=== PATIENT | male | born 1960 | race Caucasian/White ===

== ENCOUNTER 2021-03-26 11:51 | Outpatient (REF) | payer BC, SELFPAY ==
[2021-03-26 12:39] LABS: Influenza A PCR NEGATIVE (Negative); Influenza B PCR NEGATIVE (Negative); Resp Syncy Virus RNA Qual PCR NEGATIVE (Negative); SARS COV2 PCR INHOUSE POSITIVE (Negative)
== END 2021-03-26 11:52 | disposition home or self-care (01) ==
LOC: HO.LNP 11:51
PROVIDERS: Visit Provider Internal Medicine
DX: R50.9 Fever, unspecified (principal); Z20.822 Contact with and (suspected) exposure to COVID-19
CPT/HCPCS: 0241U

== ENCOUNTER 2021-07-31 16:14 | Outpatient (REF) | payer BC, SELFPAY ==
--- NOTE | ~2021-07-31 | XR_ITS ---
EXAMINATION: XR PELVIS CLINICAL INFORMATION: Pain left SI joint. COMPARISON: CT pelvis 06/17/2011 TECHNIQUE: AP view of the pelvis. FINDINGS: There is no fracture or dislocation or destructive process. No diastases SI joints or pubis. There are degenerative changes bilateral SI joints with bridging osteophytes again noted superior SI joints. There is no definite erosive change. The hips are unremarkable. XR/XR pelvis 1-2V IMPRESSION: Degenerative changes bilateral SI joints.
== END 2021-07-31 16:15 | disposition home or self-care (01) ==
LOC: HO.XRAY 16:14
PROVIDERS: PCP Internal Medicine; Visit Provider Internal Medicine
DX: M53.3 Sacrococcygeal disorders, not elsewhere classified (principal)
CPT/HCPCS: 72170

== ENCOUNTER 2021-08-01 09:31 | Outpatient (REF) | payer BC, SELFPAY ==
[2021-08-01 09:48] LABS: MANUAL DIFF FLAG NO
[2021-08-01 10:53] LABS: Basophils Percent Auto 0.5 % (0-2); Eosinophils Absolute Auto 0.1 X10*3/uL (0.0-0.4); Eosinophils Percent Auto 1.3 % (0-4); Hematocrit 43.4 % (42.0-52.0); Hemoglobin 14.6 g/dl (14.0-18.0); Imm Gran Abs Auto 0.02 X10*3/uL (0.00-0.03); Imm Gran Pct Auto 0.2 % (0.0-0.4); Lymphocytes Absolute Auto 2.3 X10*3/uL (1.2-4.9); Lymphocytes Percent Auto 26.7 % (20-40); Mean Corpuscular HGB Conc 33.6 g/dl (31.0-36.0); Mean Corpuscular Hemoglobin 31.7 pg (27.0-33.0); Mean Corpuscular Volume 94.3 fL (80.0-98.0); Mean Platelet Volume 9.2 fL (9.4-12.4); Monocytes Absolute Auto 0.7 X10*3/uL (0.1-1.2); Monocytes Percent Auto 8.4 % (2-11); Neutrophils Absolute Auto 5.4 x10*3/uL (2.0-8.3); Neutrophils Percent Auto 62.9 % (45-73); Platelet Count 366 X10*3/uL (160-400); White Blood Count 8.6 X10*3/uL (4.8-10.8)
[2021-08-01 11:34] LABS: Alanine Aminotransferase 15 U/L (0-40); Albumin Level 4.2 g/dL (3.5-5.0); Alkaline Phosphatase 75 U/L (39-117); Anion Gap 14 (12-20); Aspartate Amino Transferase 17 U/L (5-37); Bilirubin Total 0.4 mg/dL (0.0-1.0); Blood Urea Nitrogen 16 mg/dL (9-16); Calcium 9.6 mg/dL (8.4-10.2); Carbon Dioxide 25 mmol/L (22-29); Chloride 104 mmol/L (96-108); Cholesterol 195 mg/dL; Estimated Glomerular Filt Rate > 60; Glucose Fasting 80 mg/dL (60-99); HDL Cholesterol 38 mg/dL; LDL Cholesterol Calculated 141 mg/dl; Potassium 4.8 mmol/L (3.3-5.1); Sodium 138 mmol/L (135-145); Total Protein 6.9 g/dL (6.5-8.0); Triglycerides 80 mg/dL
[2021-08-01 11:55] LABS: Prostate Specific Antigen 1.52 ng/mL (<0.05-4.0); Thyroid Stimulating Hormone 1.37 uIU/mL (0.32-4.0)
== END 2021-08-01 09:32 | disposition home or self-care (01) ==
LOC: HO.LAB 09:31
PROVIDERS: PCP Internal Medicine; Visit Provider Internal Medicine
DX: Z00.00 Encounter for general adult medical examination without abnormal findings (principal); Z12.5 Encounter for screening for malignant neoplasm of prostate
CPT/HCPCS: 36415; 80053; 80061; 84153; 84439; 84443; 85025

== ENCOUNTER → 2021-08-06 07:57 | Outpatient (REF) | payer BC, SELFPAY ==
--- NOTE | 2021-08-06 08:01 | CA_ITS ---
Acquisition Time: 2021-08-06 08:16:59 Total Exercise Time: 00:08:31 Test Indications: PALPITATIONS Medications: Protocol: SHERLY Max HR: 153 BPM 95% of Pred: 161 BPM Max BP: 214/072 mmHG Max Work Load: 10.4 METS PT EXERCISED ON STD SHERLY PROTOCOL FOR 830MIN INTO STAGE 3. MAX HR 153-95%MAX. ELEV BP WITH EXERCISE. RARE PVC. NO CP. NO ISCHEMIC CHANGES. CLINICALLY AND ELEC NEG. Referred By: Robert Griggs Overread By: SANJUANA GRIGGS MD
== END ==
LOC: HO.CARD 07:57
PROVIDERS: PCP Internal Medicine; Visit Provider Internal Medicine
DX: R00.2 Palpitations (principal)
CPT/HCPCS: 93017

== ENCOUNTER 2021-08-11 09:16 | Emergency (ER) | payer BC, SELFPAY ==
--- NOTE | ~2021-08-11 | US_ITS ---
EXAMINATION: US SCROTUM CLINICAL INFORMATION: Left testicular pain/swelling. COMPARISON: None TECHNIQUE: A sonogram of the scrotum was performed assessing nevarez-scale appearance and color Doppler flow. Spectral Doppler analysis of the arterial and venous flow were performed in the testes bilaterally. FINDINGS: RIGHT: Right testicle measures 4.3 x 2.4 x 3.2 cm, volume 17.6 mL. No focal testicular parenchymal lesions are visualized. Spectral Doppler analysis of the arterial and venous flow is normal in the right testis. Focal area of calcification is noted within the right hemiscrotum abutting the inferior pole of the right testicle, measures 0.9 cm at its maximum dimension. Right epididymal head is normal in size. Yyypk-bh-ojfpcewq volume hydrocele is present with low-level internal echoes. No evidence of any varicocele. Right epididymal Doppler flow is normal. LEFT: Left testicle measures 4.5 x 2.6 x 2.8 cm, volume 17.1 mL. No focal testicular parenchymal lesions are visualized. Spectral Doppler analysis of the arterial and venous flow is normal in the left testis. Left epididymal head is normal in size. Subcentimeter epididymal cyst versus spermatocele is present within the epididymal head. No left hydrocele or varicocele is seen. Left epididymal Doppler flow is US/US scrotum doppler IMPRESSION: 1. Sonographically unremarkable bilateral testicles. 2. Subcentimeter calcification within the right hemiscrotum abutting the inferior pole of the right testicle. 3. Lgozv-ae-rdzriven volume hydrocele within the right hemiscrotum associated with low-level internal echoes. 4. Subcentimeter cyst versus spermatocele within the left epididymal head.
--- NOTE | ~2021-08-11 | CT_ITS ---
EXAMINATION: CT ABDOMEN AND PELVIS WITHOUT CONTRAST CLINICAL INFORMATION: Left lower quadrant pain radiating to testicle COMPARISON: Ultrasound of September 12, [address] scan of June 17, 2011 TECHNIQUE: Multidetector volumetric imaging was performed from the superior aspect of the liver through the pubic symphysis. Sagittal and coronal reformatted images were obtained on the technologist's workstation. This CT examination was performed using dose optimization techniques as appropriate, variously including the following: *Automated exposure control *Adjustment of mA and/or kV according to patient size (this includes techniques or standardized protocols for targeted exams where dose is matched to indication/reason for exam; i.e. extremities or head) *Use of iterative reconstruction technique DLP: 673 mGy-cm FINDINGS: LUNG BASES: Heart normal size. No pericardial or pleural effusion. LIVER, GALLBLADDER, AND BILIARY TREE: There are multiple low-density lesions present most likely representing cysts with the largest being in segment 4A measuring 1.8 cm in diameter. No focal solid mass or intrahepatic bile duct dilatation is appreciated. The gallbladder is unremarkable with no evidence of radiopaque gallstones, gallbladder wall thickening, or obvious pericholecystic inflammatory changes. PANCREAS: Unremarkable. SPLEEN: Unremarkable. ADRENAL GLANDS: The left adrenal gland appears unremarkable. There is a 1.6 x 1.0 cm lipid rich right adrenal gland adenoma. KIDNEYS AND URETERS: The kidneys are normal in size, shape, and attenuation. No hydronephrosis or hydroureter seen. No perinephric stranding. There is a 1.3 cm upper pole cyst within the right kidney. There is a 2 mm nonobstructing calculus within the lower pole of the left kidney. BLADDER: Unremarkable. GASTROINTESTINAL TRACT: No dilated loops of large or small bowel. No free air or free fluid. There is moderate diverticular disease of the left colon without definite acute diverticulitis and without significant pericolonic inflammatory change appreciated. The appendix appears unremarkable. ABDOMINAL WALL: No significant hernia is appreciated. LYMPH NODES: No lymphadenopathy appreciated. VASCULAR: No abdominal aortic aneurysm. PELVIC VISCERA: Prostatic calcifications present. OSSEOUS STRUCTURES: No destructive bony lesions identified. 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 There is multilevel degenerative disc disease seen. CT/CT abdomen pelvis wo con IMPRESSION: Moderate left colonic diverticular disease without evidence of acute diverticulitis or abnormal fluid collection. Left nephrolithiasis without evidence of obstructive uropathy. No evidence of ileus or obstruction. Multiple hepatic and right renal cysts. Right adrenal gland lipid rich adenoma. Fleischner guidelines were followed.
--- NOTE | ~2021-08-11 | US_ITS ---
EXAMINATION: US SCROTUM CLINICAL INFORMATION: Left testicular pain/swelling. COMPARISON: None TECHNIQUE: A sonogram of the scrotum was performed assessing nevarez-scale appearance and color Doppler flow. Spectral Doppler analysis of the arterial and venous flow were performed in the testes bilaterally. FINDINGS: RIGHT: Right testicle measures 4.3 x 2.4 x 3.2 cm, volume 17.6 mL. No focal testicular parenchymal lesions are visualized. Spectral Doppler analysis of the arterial and venous flow is normal in the right testis. Focal area of calcification is noted within the right hemiscrotum abutting the inferior pole of the right testicle, measures 0.9 cm at its maximum dimension. Right epididymal head is normal in size. Scoia-zi-zephuanv volume hydrocele is present with low-level internal echoes. No evidence of any varicocele. Right epididymal Doppler flow is normal. LEFT: Left testicle measures 4.5 x 2.6 x 2.8 cm, volume 17.1 mL. No focal testicular parenchymal lesions are visualized. Spectral Doppler analysis of the arterial and venous flow is normal in the left testis. Left epididymal head is normal in size. Subcentimeter epididymal cyst versus spermatocele is present within the epididymal head. No left hydrocele or varicocele is seen. Left epididymal Doppler flow is US/US scrotum IMPRESSION: 1. Sonographically unremarkable bilateral testicles. 2. Subcentimeter calcification within the right hemiscrotum abutting the inferior pole of the right testicle. 3. Nkqng-te-oxjyvcqh volume hydrocele within the right hemiscrotum associated with low-level internal echoes. 4. Subcentimeter cyst versus spermatocele within the left epididymal head.
[2021-08-11 09:53] VITALS: BP 165/71; PULSE 63; RESP 18; TEMP 36.7; O2SAT 99; BMI 31.8
[2021-08-11 10:11] LABS: Appearance Urine CLEAR; Color Urine YELLOW; Glucose Urine UA NEG (NEG); Leukocyte Esterase Urine NEG (NEG); Nitrite Urine NEG (NEG); PH 5.5 (5.0-8.0); Specific Gravity - Urine >= 1.030 (1.005-1.025); Urine Blood NEG (NEG); Urine Ketones 5 MG/DL (NEG); Urine Protein NEG (NEG-TRACE)
--- NOTE | 2021-08-11 11:34 | ED.ABDPAIN ---
HPI - Abdominal Pain General Chief Complaint: Abdominal Pain Stated Complaint: L side abd pain Time Seen by Provider: 08/11/21 11:12 Source: patient Mode of arrival: ambulatory Limitations: no limitations History of Present Illness HPI narrative: 60 yo male healthy here with complaints of left hip/groin pain with radiation to the left testicle x 2 weeks. Saw his PCP and had a pelvis x-ray outpatient. Continued pain. No nausea, vomiting or diarrhea. No urinary complaints. No fevers or chills. Pain sometimes radiates down the left leg. No numbness or tingling associated. No incontinence. Patient also reports that he has had a rash on his testicles for several years. No change in the rash. No rash elsewhere Related Data Previous Rx's Medication Instructions Recorded cyclobenzaprine 10 mg tablet 10 mg PO TID PRN #10 tab 08/11/21 prednisone 20 mg tablet 40 mg PO DAILY #10 tab 08/11/21 Allergies Allergy/AdvReac Type Severity Reaction Status Date / Time shellfish derived Allergy Severe ANAPHYLAXIS Verified 08/11/21 09:56 ciprofloxacin [CIPROFLOXACIN] Allergy Intermediate FLU LIKE Verified 08/11/21 09:56 SYMPTOMS Review of Systems Review of Systems Yes all other systems are reviewed and are negative Constitutional: Reports no additional constitutional complaints, Denies body ache(s), Denies chills, Denies fever(s), Denies headache(s) and Denies weakness Eyes: Reports no additional eye complaints and Denies change in vision Reports system reviewed and no additional complaints, except as documented, Denies dizziness, Denies headache(s), Denies nasal congestion, Denies nasal discharge and Denies neck pain Cardiovascular: Reports no additional cardiovascular complaints, Denies chest pain, Denies leg edema and Denies dyspnea Respiratory: Reports no additional respiratory complaints, Denies cough and Denies dyspnea Gastrointestinal: Reports no additional gastrointestinal complaints, Reports abdominal pain (groin pain ), Denies diarrhea, Denies nausea and Denies vomiting Genitourinary: Denies penile discharge, Reports testicular pain, Denies urinary hesitancy, Denies urinary incontinence and Denies urinary urgency Musculoskeletal: Reports no additional musculoskeletal complaints, Denies back pain, Denies arthralgias, Denies joint swelling, Denies neck pain, Denies numbness and Denies tingling Skin/Breast: Reports system reviewed and no additional complaints, except as docu and Reports rash Reports system reviewed and no additional complaints, except as documented, Denies dizziness, Denies headache(s), Denies numbness, Denies tingling and Denies weakness PMFSH Past Medical History Attestation statement: The following information was validated with the patient. Source: old records reviewed and nursing notes reviewed Social History Social History Advance Directives: No Advance Directives Information Provided: No Physical Exam ED Vital Signs: Vital Signs - 24 hr 08/11/21 09:53 Temperature 98.0 F Pulse Rate 63 Respiratory Rate 18 Blood Pressure 165/71 H Pulse Oximetry 99 BMI result Body Mass Index 31.8 Const General: cooperative, healthy appearing and comfortable Orientation/consciousness: patient oriented x3 Limitations: no limitations HENMT Head: Yes normal to inspection Ears: hearing grossly normal bilaterally General nose exam: Normal external nose present Face and sinus: Yes normal facial exam Mouth: Normal oral and palatal mucosa present Throat: Yes posterior oropharynx normal, Yes tonsils normal and Yes uvula midline Eyes General: appearance normal, both eyes and all related structures Pupils: Equal, round and reactive pupils present Neck Neck: Yes normal visual inspection, Yes full ROM, Yes no lymphadenopathy and Yes no meningeal signs Chest Chest palpation & inspection: normal inspection of the chest Resp Effort & Inspection: normal respiratory effort Auscultation: clear to auscultation bilaterally Cardio Rate: regular rate Rhythm: regular rhythm Peripheral pulses: Peripheral pulses 2+ throughout GI Inspection: Yes normal to inspection Palpation (GI): Soft to palpation and Tenderness to palpation present (GI) (LLQ, left groin) Other: Mild tenderness to the left testicle. No swelling. There is purpura like rash noted over both testicles. There is no erythema, warmth. General: Yes no CVA tenderness Penis: normal penis Meatus: meatus normal Scrotum: scrotum normal Testes: Testes normal Back/Spine/Pelvis Back: no CVA tenderness Skin General skin exam: no rashes or lesions noted Neuro General: patient oriented x3, moves all extremities and no meningeal signs Cranial nerves: Yes CN's II-XII intact bilaterally, Yes Equal, round and reactive pupils present, Yes Bilaterally intact EOM present, Yes Nystagmus not present, Yes Normal facial strength present and Yes Midline tongue present Cognition (Neuro): normal cognition Gait exam (Neuro): Normal gait present Motor exam (neuro): 5/5 motor strength present throughout Sensory Exam: Normal double simultaneous stimulation for sensation Extrem General: Yes normal to inspection, Yes no pedal edema and Yes no calf tenderness Course Course Course Narrative: 60-year-old male here with 2 weeks of left groin pain radiating to his left testicle with no other reported symptoms. Patient also reports of purpura like rash noted over both of his testicles which he has had for several years. Will check CT, labs, UA, scrotal US. Add on inflammatory markers due to purpura like rash. Reevaluation(s) Reevaluation #1: Labs are unremarkable. The patient has some a mildly elevated CRP which is unchanged from baseline. His UA shows no signs of infection. His ultrasound does show some diverticular changes but no acute diverticulitis. It also shows a kidney stone with in the left kidney with no obstructive uropathy. Ultrasound shows no acute findings. I discussed this with the patient. Likely lumbar radiculopathy. No neurological deficits, or red flag symptoms. Patient has no reports of incontinence or saddle anesthesia or fever. He is taking NSAIDs at home. Recommend adding short course of prednisone, muscle relaxants. Also recommended he follow-up with his primary care doctor outpatient. Reviewed worrisome signs and symptoms of when to return to the emergency department. Comfortable discharge home. Time: 14:43 MDM - Abdominal Pain MDM Narrative Medical decision making narrative: Renal colic, UTI, diverticulitis, lumbar radiculopathy Medical Records Attestation: I reviewed the patient's medical records. Lab Data Attestation: I reviewed the patient's lab results. Result diagrams: 08/11/21 12:06 08/11/21 12:06 Labs: Lab Results 08/11/21 08/11/21 08/11/21 Range/Units 10:06 12:06 12:06 WBC 10.2 (4.8-10.8) X10*3/uL RBC 4.66 (4.60-5.80) X10*6/uL Hgb 14.8 (14.0-18.0) g/dl Hct 43.7 (42.0-52.0) % MCV 93.8 (80.0-98.0) fL MCH 31.8 (27.0-33.0) pg MCHC 33.9 (31.0-36.0) g/dl RDW 14.0 (11.0-16.0) % Plt Count 373 (160-400) X10*3/uL MPV 9.2 L (9.4-12.4) fL Immature Gran % (Auto) 0.3 (0.0-0.4) % Neut % (Auto) 64.5 (45-73) % Lymph % (Auto) 27.4 (20-40) % Cache % (Auto) 6.3 (2-11) % Eos % (Auto) 1.1 (0-4) % Baso % (Auto) 0.4 (0-2) % Lymph # (Auto) 2.8 (1.2-4.9) X10*3/uL Cache # (Auto) 0.6 (0.1-1.2) X10*3/uL Eos # (Auto) 0.1 (0.0-0.4) X10*3/uL Baso # (Auto) 0.0 (0.0-0.2) X10*3/uL Abs Immat Gran (auto) 0.03 (0.00-0.03) X10*3/uL Absolute Neuts (auto) 6.6 (2.0-8.3) x10*3/uL Absolute Nucleated RBC 0.000 (0.0-0.012) X10*3/uL Nucleated RBC % (auto) 0.0 (0.0-0.2) /100WBC ESR (0-15) MM/HR Sodium 138 (135-145) mmol/L Potassium 4.2 (3.3-5.1) mmol/L Chloride 106 (96-108) mmol/L Carbon Dioxide 24 (22-29) mmol/L Anion Gap 12 (12-20) BUN 17 H (9-16) mg/dL Creatinine 0.80 (0.5-1.4) mg/dL Estim Creat Clear Calc 125.4 Estimated GFR > 60 Random Glucose 80 (60-115) mg/dL Calcium 9.3 (8.4-10.2) mg/dL Total Bilirubin 0.4 (0.0-1.0) mg/dL Direct Bilirubin 0.2 (0.0-0.5) mg/dL AST 19 (5-37) U/L ALT 17 (0-40) U/L Alkaline Phosphatase 77 (39-117) U/L C-Reactive Protein (< or = 0.50) mg/dL Total Protein 7.0 (6.5-8.0) g/dL Albumin 4.2 (3.5-5.0) g/dL Urine Color YELLOW Urine Appearance CLEAR Urine pH 5.5 (5.0-8.0) Ur Specific [place] >= 1.030 H (1.005-1.025) Urine Protein NEG (NEG-TRACE) MG/DL Urine Glucose (UA) NEG (NEG) MG/DL Urine Ketones 5 (NEG) MG/DL Urine Blood NEG (NEG) Urine Nitrite NEG (NEG) Ur Leukocyte Esterase NEG (NEG) 08/11/21 08/11/21 Range/Units 12:06 12:06 WBC (4.8-10.8) X10*3/uL RBC (4.60-5.80) X10*6/uL Hgb (14.0-18.0) g/dl Hct (42.0-52.0) % MCV (80.0-98.0) fL MCH (27.0-33.0) pg MCHC (31.0-36.0) g/dl RDW (11.0-16.0) % Plt Count (160-400) X10*3/uL MPV (9.4-12.4) fL Immature Gran % (Auto) (0.0-0.4) % Neut % (Auto) (45-73) % Lymph % (Auto) (20-40) % Cache % (Auto) (2-11) % Eos % (Auto) (0-4) % Baso % (Auto) (0-2) % Lymph # (Auto) (1.2-4.9) X10*3/uL Cache # (Auto) (0.1-1.2) X10*3/uL Eos # (Auto) (0.0-0.4) X10*3/uL Baso # (Auto) (0.0-0.2) X10*3/uL Abs Immat Gran (auto) (0.00-0.03) X10*3/uL Absolute Neuts (auto) (2.0-8.3) x10*3/uL Absolute Nucleated RBC (0.0-0.012) X10*3/uL Nucleated RBC % (auto) (0.0-0.2) /100WBC ESR 8 (0-15) MM/HR Sodium (135-145) mmol/L Potassium (3.3-5.1) mmol/L Chloride (96-108) mmol/L Carbon Dioxide (22-29) mmol/L Anion Gap (12-20) BUN (9-16) mg/dL Creatinine (0.5-1.4) mg/dL Estim Creat Clear Calc Estimated GFR Random Glucose (60-115) mg/dL Calcium (8.4-10.2) mg/dL Total Bilirubin (0.0-1.0) mg/dL Direct Bilirubin (0.0-0.5) mg/dL AST (5-37) U/L ALT (0-40) U/L Alkaline Phosphatase (39-117) U/L C-Reactive Protein 0.97 H (< or = 0.50) mg/dL Total Protein (6.5-8.0) g/dL Albumin (3.5-5.0) g/dL Urine Color Urine Appearance Urine pH (5.0-8.0) Ur Specific [place] (1.005-1.025) Urine Protein (NEG-TRACE) MG/DL Urine Glucose (UA) (NEG) MG/DL Urine Ketones (NEG) MG/DL Urine Blood (NEG) Urine Nitrite (NEG) Ur Leukocyte Esterase (NEG) Imaging Data CT scan - abdomen: Attestation: I personally reviewed and interpreted this imaging study as follows: Radiologist's impression: IMPRESSION: Moderate left colonic diverticular disease without evidence of acute diverticulitis or abnormal fluid collection. ? Left nephrolithiasis without evidence of obstructive uropathy. ? No evidence of ileus or obstruction. ? Multiple hepatic and right renal cysts. ? Right adrenal gland lipid rich adenoma. ? Fleischner guidelines were followed. scrotum US: Attestation: I personally reviewed and interpreted this imaging study as follows: Radiologist's impression: FINDINGS: RIGHT: Right testicle measures 4.3 x 2.4 x 3.2 cm, volume 17.6 mL. No focal testicular parenchymal lesions are visualized. Spectral Doppler analysis of the arterial and venous flow is normal in the right testis. Focal area of calcification is noted within the right hemiscrotum abutting the inferior pole of the right testicle, measures 0.9 cm at its maximum dimension. Right epididymal head is normal in size. Fftul-qa-xxnejeib volume hydrocele is present with low-level internal echoes. No evidence of any varicocele. Right epididymal Doppler flow is normal. LEFT: Left testicle measures 4.5 x 2.6 x 2.8 cm, volume 17.1 mL. No focal testicular parenchymal lesions are visualized. Spectral Doppler analysis of the arterial and venous flow is normal in the left testis. Left epididymal head is normal in size. Subcentimeter epididymal cyst versus spermatocele is present within the epididymal head. No left hydrocele or varicocele is seen. Left epididymal Doppler flow is US/US scrotum doppler IMPRESSION: ? 1. Sonographically unremarkable bilateral testicles. 2. Subcentimeter calcification within the right hemiscrotum abutting the inferior pole of the right testicle. 3. Zxqqs-su-dmmidnpq volume hydrocele within the right hemiscrotum associated with low-level internal echoes. 4. Subcentimeter cyst versus spermatocele within the left epididymal head. Discharge Plan Discharge Clinical Impression: Acute left lumbar radiculopathy Patient Disposition: Home, Self-Care Instructions: Lumbar Radiculopathy (ED) Additional Instructions: Heat or ice Gentle stretching No heavy lifting or bending Follow-up with Dr. Smith within the next week or 2 to discuss the physical therapy or additional imaging is needed. Continue Motrin or Tylenol for pain Prescriptions: New cyclobenzaprine 10 mg tablet 10 mg PO TID PRN (Reason: muscle spasm) Qty: 10 0RF prednisone 20 mg tablet 40 mg PO DAILY Qty: 10 0RF Referrals: Robert Smith MD [Primary Care Provider] - 1 week
[2021-08-11] MEDS: Ketorolac Tromethamine 30 MG/ML VIAL IVPUSH (12:08)
[2021-08-11 12:15] LABS: Basophils Percent Auto 0.4 % (0-2); Eosinophils Absolute Auto 0.1 X10*3/uL (0.0-0.4); Eosinophils Percent Auto 1.1 % (0-4); Hematocrit 43.7 % (42.0-52.0); Hemoglobin 14.8 g/dl (14.0-18.0); Imm Gran Abs Auto 0.03 X10*3/uL (0.00-0.03); Imm Gran Pct Auto 0.3 % (0.0-0.4); Lymphocytes Absolute Auto 2.8 X10*3/uL (1.2-4.9); Lymphocytes Percent Auto 27.4 % (20-40); MANUAL DIFF FLAG NO; Mean Corpuscular HGB Conc 33.9 g/dl (31.0-36.0); Mean Corpuscular Hemoglobin 31.8 pg (27.0-33.0); Mean Corpuscular Volume 93.8 fL (80.0-98.0); Mean Platelet Volume 9.2 fL (9.4-12.4); Monocytes Absolute Auto 0.6 X10*3/uL (0.1-1.2); Monocytes Percent Auto 6.3 % (2-11); Neutrophils Absolute Auto 6.6 x10*3/uL (2.0-8.3); Neutrophils Percent Auto 64.5 % (45-73); Platelet Count 373 X10*3/uL (160-400); Red Blood Count 4.66 X10*6/uL (4.60-5.80); White Blood Count 10.2 X10*3/uL (4.8-10.8)
[2021-08-11 12:31] LABS: C Reactive Protein 0.97 mg/dL (< or = 0.50)
[2021-08-11 12:33] LABS: Alanine Aminotransferase 17 U/L (0-40); Albumin Level 4.2 g/dL (3.5-5.0); Alkaline Phosphatase 77 U/L (39-117); Anion Gap 12 (12-20); Aspartate Amino Transferase 19 U/L (5-37); Bilirubin Direct 0.2 mg/dL (0.0-0.5); Bilirubin Total 0.4 mg/dL (0.0-1.0); Blood Urea Nitrogen 17 mg/dL (9-16); Calcium 9.3 mg/dL (8.4-10.2); Carbon Dioxide 24 mmol/L (22-29); Chloride 106 mmol/L (96-108); Creatinine Clr Calc Pharmacy 125.4; Estimated Glomerular Filt Rate > 60; Glucose Random 80 mg/dL (60-115); Potassium 4.2 mmol/L (3.3-5.1); Sodium 138 mmol/L (135-145)
[2021-08-11 13:38] LABS: Erythrocyte Sedimentation Rate 8 MM/HR (0-15)
== END 2021-08-11 15:22 | disposition home or self-care (01) ==
PROVIDERS: Nurse Practitioner Family; Emergency Provider Emergency Medicine; PCP Internal Medicine
DX: M54.16 Radiculopathy, lumbar region (principal); N50.812 Left testicular pain; R21 Rash and other nonspecific skin eruption
CPT/HCPCS: 36415; 74176; 76870; 80048; 80076; 81003; 85025; 85652; 86140; 93975; 96374; 99284; J1885

== ENCOUNTER 2021-12-17 08:00 | Outpatient (RCR) | payer BC, SELFPAY ==
--- NOTE | 2021-11-19 09:40 | MHC.PT.EP ---
[facility] [place] Office [place] Office [place] Office [address] Candace Oropeza [address] [phone] F: [phone] F: [phone] F: [phone] F: [phone] Physical Therapy Plan of Care Date of Evaluation: Date of Surgery: NA Diagnosis: WEAKNESS OF STOMACH MUSCLE Assessment: Pt IS 61 YO M REFERRED TO PT FROM DR GRIGGS WITH WEAKNESS OF THE STOMACH MUSCLE. Pt WITH LBP AND L FLANK PAIN FOR ABOUT 1 YEAR WITH FREQUENT URINATION AND BULGE NOTED IN ABDOMINAL AREA. WAS REFERRED TO SURGEON RE HERNIA BUT FOUND THAT HE DID NOT HAVE A HERNIA, BUT DIASTASIS RECTI. REFERRED TO PT. PRESENTS WITH TIGHT HIP MMS AND L QL PAIN WITH TTP RECTUS (~2 FINGER WIDTH DIASTASIS). SHOULD BENEFIT FROM PT TO ADDRESS THESE ISSUES. SHOULD BENEFIT FROM 1-2 SESSIONS WITH PELVIC FLOOR THERAPIST TO ADDRESS ANY PELVIC FLOOR ISSUE AFFECTING URINARY ISSUE Frequency and Duration: The patient will be seen 1X/WK X 6 WKS Short Term Goals: 1. INCREASED AWARENESS POSTURE AND ABDOMINAL/BACK CARE 2. 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 Pt TO REPORT DECREASE IN URINARY FREQUENCY 2. DECREASE L QL/FLANK PAIN AT LEAST 50% WITH ADLS 3. I HEP WITH DC EX PLAN Treatment Plan: Modalities to reduce pain, spasms and effusion. Manual therapy to restore motion and function. Therapeutic exercise to improve strength and flexibility. Neuromuscular re-education for posture and balance. Therapeutic activities to return to functional activities of daily living. Electronically signed by: ALEXY ARELLANO PT Please sign and return to therapist. Thank you for your referral.
--- NOTE | 2022-01-21 14:09 | MHC.PT.DC ---
[facility] [place] Office [place] Office [place] Office [address] Candace Oropeza [address] [phone] F: [phone] F: [phone] F: [phone] F: [phone] Physical Therapy Discharge Report Diagnosis: WEAKNESS OF STOMACH MUSCLE Date of Surgery: NA Date of Evaluation: 11/19/21 Date of Discharge: 01/21/22 Treatments to Date: 3 Cancellations to Date: No Shows to Date: Discharge Status: Patient Elected to Stop Visit Non-compliance Discharge Summary: Pt LAST SEEN ON 12/17/21 HAS HAD MULTIPLE CANCELS. AT LAST SESSION PER ASSESSMENT SLOW EX PERFORMANCE, REPORTS SOME PAIN L LB WITH LTR (ED TO DECREASE RANGE) . LAST APPT THAT WAS SCHEDULED WAS 01/06 WHICH HE NO SHOWED. WILL DC AT THIS TIME WITH HEP AND INCREASED ED RE ABDOMINAL CARE Electronically signed by: AELXY ARELLANO PT Please sign and return to therapist. Thank you for your referral.
== END 2022-01-21 14:20 | disposition home or self-care (01) ==
LOC: HO.PT 08:00
PROVIDERS: PCP Internal Medicine; Visit Provider Internal Medicine
DX: R53.1 Weakness (principal)
CPT/HCPCS: 97110; 97112; 97140; 97162; 97535

== ENCOUNTER 2022-11-22 12:32 | Emergency (ER) | payer BC, SELFPAY ==
--- NOTE | ~2022-11-22 | CT_ITS ---
EXAMINATION: CT ABDOMEN AND PELVIS WITHOUT CONTRAST CLINICAL INFORMATION: Abdominal pain COMPARISON: CT abdomen and pelvis 08/11/2021 TECHNIQUE: Multidetector volumetric imaging was performed from the superior aspect of the liver through the pubic symphysis. Sagittal and coronal reformatted images were obtained on the technologist's workstation. This CT examination was performed using dose optimization techniques as appropriate, variously including the following: *Automated exposure control *Adjustment of mA and/or kV according to patient size (this includes techniques or standardized protocols for targeted exams where dose is matched to indication/reason for exam; i.e. extremities or head) *Use of iterative reconstruction technique DLP: 728 mGy-cm FINDINGS: LUNG BASES: The visualized lung bases are unremarkable. LIVER, GALLBLADDER, AND BILIARY TREE: The liver is normal in size, shape, and attenuation. Multiple hypodense hepatic lesions the largest of which are consistent with hepatic cysts. The gallbladder is decompressed. PANCREAS: Unremarkable. SPLEEN: Unremarkable. ADRENAL GLANDS: Bilateral adrenal gland thickening, unchanged KIDNEYS AND URETERS: The kidneys are normal in size, shape, and attenuation. No hydronephrosis, hydroureter, or calculi seen. No perinephric stranding. Unchanged right upper pole renal cyst. BLADDER: Unremarkable. GASTROINTESTINAL TRACT: Severe colonic diverticulitis. There is pericolonic fat stranding in the left lower quadrant. The appendix is normal. Stomach and duodenum are unremarkable. ABDOMINAL WALL: No significant hernia is appreciated. LYMPH NODES: Prominent periportal lymph nodes, unchanged. VASCULAR: Unremarkable. PELVIC VISCERA: Unremarkable. OSSEOUS STRUCTURES: Unremarkable. CT/CT abdomen pelvis wo IV con IMPRESSION: 1. Pericolonic fat stranding in the left lower quadrant suggesting acute diverticulitis. 2. Severe diverticulosis. Fleischner guidelines were followed.
[2022-11-22 12:43] VITALS: BP 157/73; PULSE 65; RESP 18; TEMP 37.5; O2SAT 97; BMI 31.9
--- NOTE | 2022-11-22 12:43 | ED_ITS ---
HPI - Abdominal Pain General Chief Complaint: Abdominal Pain Stated Complaint: abd pain Time Seen by Provider: 11/22/22 16:00 Source: patient Mode of arrival: ambulatory Limitations: no limitations History of Present Illness HPI narrative: 62-year-old male with a history of diastasis recti presents to ER with abdominal pain that began a few nights ago and worsened last night. Reports he initially woke up from sleep with a pain localized to his left lower quadrant/ groin area. Reports the pain is not present at rest and only comes on with positional changes and palpation. States the pain is sharp in intensity and lasts less than a minute with each episode. Denies any pattern of pain associated with eating. D enies fevers, chills, nausea, vomiting, diarrhea, urinary symptoms, or pain elsewhere. Denies any family history of gastrointestinal issues or colon cancer. Denies prior abdominal surgeries. Reports that his last colonoscopy was nearly 10 years ago and was normal. Reports he does heavy lifting often. Last bowel movement this morning, non-bloody. MD elicited complaint: abdominal pain Pertinent past history: none Onset (ago): day(s) Pain Consistency: intermittent Location: LLQ and groin Severity: severe Quality: sharp Radiation: none Migration to: no migration Exacerbating factors: movement Relieving factors: rest Context: recent antibiotic use (Started Augmentin for dental issue a few days a go. ) Associated symptoms: denies other symptoms Related Data Home Medications Medication Instructions Recorded Confirmed amoxicillin 500 mg-potassium 1 tab PO Q8H 09/25/21 09/25/21 clavulanate 125 mg tablet Previous Rx's Medication Instructions Recorded cyclobenzaprine 10 mg tablet 10 mg PO TID PRN muscle spasm #10 08/11/21 tabs prednisone 20 mg tablet 40 mg PO DAILY #10 tabs 08/11/21 amoxicillin 875 mg-potassium 1 tab PO BID #14 tabs 11/22/22 clavulanate 125 mg tablet hydrocodone 5 mg-acetaminophen 325 1 tab PO TID PRN severe pain 11/22/22 mg tablet (scale score 7-10) #6 tabs ibuprofen 600 mg tablet 600 mg PO Q8H PRN fever or pain 11/22/22 #14 tabs ondansetron 4 mg disintegrating 4 mg PO Q8H PRN nausea and 11/22/22 tablet vomiting #6 tabs Allergies Allergy/AdvReac Type Severity Reaction Status Date / Time shellfish derived Allergy Severe ANAPHYLAXIS Verified 09/25/21 09:52 ciprofloxacin [CIPROFLOXACIN] Allergy Intermediate FLU LIKE Verified 09/25/21 09:52 SYMPTOMS Review of Systems Review of Systems Yes all other systems are reviewed and are negative [facility] Past Medical History Surgical History History of mandibular surgery Family History Family History Mother Cancer of unknown origin Father Cancer of unknown origin Social History Social History Alcohol intake: current Alcohol intake frequency: does not drink Patient Tobacco Use Status: Current everyday Tobacco user Cigarettes Per Day: 10 Smoked in Last 30 Days: Yes Use of substances other than those prescribed or required for medical reasons: No Advance Directives: No Advance Directives Information Provided: Yes Physical Exam ED Vital Signs: Vital Signs - 24 hr 11/22/22 12:43 11/22/22 16:45 Temperature 99.5 F 98.2 F Pulse Rate 65 57 Respiratory Rate 18 16 Blood Pressure 157/73 H 156/83 H Pulse Oximetry 97 100 Oxygen Delivery Method Room Air Room Air BMI result Body Mass Index 31.9 Const General: cooperative, healthy appearing, comfortable and no acute distress Resp Effort & Inspection: normal respiratory effort and able to speak in complete sentences Auscultation: clear to auscultation bilaterally Cardio Rate: regular rate Rhythm: regular rhythm GI Inspection: Yes normal to inspection Palpation (GI): Tenderness to palpation present (GI) (Point tenderness to palpation in LLQ/ suprapubic area.) in the LLQ and Guarding due to palpation present (GI) in the LLQ Auscultation: normal bowel sounds Course Course Course Narrative: RME: 62yo M w/PMHx diastasis rectci c/o LLQ/Left groin pain x3 days worse w/movement/laying down. Also reports urinary frequency. Admits to heavy lifting at work. denies fever, chills, N/V, testicular pain, hematuria/dysuria Abdomen soft w/+LLQ and suprapubic ttp, No CVAT Labs, UA ordered Full HPI, ROS and PE to be performed by primary ED provider. Medical Decision Making Medical Decision Making MDM Narrative: 62-year-old male with history of diastasis recti who presents with localized left-sided suprapubic pain that started a few days ago. Pain is worse with positional changes and palpation. Physical exam remarkable for point tenderness in left lower quadrant/ suprapubic area. No white count, no fever, urinalysis negative. CT abdomen reveals diverticulitis. At this time patient is stable for d/c home with PO abx and pain control, outpatient follow up. strict return precautions were discussed along with diagnosis, treatment and complications. Differential Diagnosis Differential Diagnoses: The differential diagnosis associated with the presentation includes acute diverticultitis, colonic abscess, inguinal hernia, strangulated hernia, incarcerated hernia, UTI Admission/Observation Consideration of admission/observation: Escalation of care including admission/observation considered Lab Data [facility] Lab Attestation statement: I reviewed the patient's lab results. no leukocytosis 11/22/22 12:56 11/22/22 12:56 Labs: Lab Results 11/22/22 11/22/22 11/22/22 Range/Units 12:56 12:56 12:56 WBC 10.2 (4.8-10.8) X10*3/uL RBC 4.98 (4.60-5.80) X10*6/uL Hgb 16.0 (14.0-18.0) g/dl Hct 46.5 (42.0-52.0) % MCV 93.4 (80.0-98.0) fL MCH 32.1 (27.0-33.0) pg MCHC 34.4 (31.0-36.0) g/dl RDW 13.8 (11.0-16.0) % Plt Count 379 (160-400) X10*3/uL MPV 9.0 L (9.4-12.4) fL Immature Gran % (Auto) 0.3 (0.0-0.4) % Neut % (Auto) 59.6 (45-73) % Lymph % (Auto) 29.8 (20-40) % Banner % (Auto) 8.4 (2-11) % Eos % (Auto) 1.4 (0-4) % Baso % (Auto) 0.5 (0-2) % Lymph # (Auto) 3.0 (1.2-4.9) X10*3/uL Banner # (Auto) 0.9 (0.1-1.2) X10*3/uL Eos # (Auto) 0.1 (0.0-0.4) X10*3/uL Baso # (Auto) 0.1 (0.0-0.2) X10*3/uL Abs Immat Gran (auto) 0.03 (0.00-0.03) X10*3/uL Absolute Neuts (auto) 6.1 (2.0-8.3) x10*3/uL Absolute Nucleated RBC 0.000 (0.0-0.012) X10*3/uL Nucleated RBC % (auto) 0.0 (0.0-0.2) /100WBC Sodium 139 (135-145) mmol/L Potassium 4.4 (3.3-5.1) mmol/L Chloride 104 (96-108) mmol/L Carbon Dioxide 28 (22-29) mmol/L Anion Gap 11 L (12-20) BUN 11 (9-16) mg/dL Creatinine 0.78 (0.5-1.4) mg/dL Estim Creat Clear Calc 125.4 Estimated GFR > 60 Random Glucose 81 (60-115) mg/dL Calcium 9.6 (8.4-10.2) mg/dL Magnesium 2.1 (1.6-2.6) mg/dL Total Bilirubin 0.4 (0.0-1.0) mg/dL Direct Bilirubin 0.1 (0.0-0.5) mg/dL AST 18 (5-37) U/L ALT 15 (0-40) U/L Alkaline Phosphatase 81 (39-117) U/L Total Protein 7.8 (6.5-8.0) g/dL Albumin 4.5 (3.5-5.0) g/dL Lipase 26 (8-78) U/L Urine Color Yellow Urine Appearance Clear Urine pH 6.5 (5.0-9.0) Ur Specific [place] 1.010 (1.005-1.025) Urine Protein Negative (Neg-Trace) mg/dL Urine Glucose (UA) Negative (Negative) mg/dL Urine Ketones Negative (Negative) mg/dL Urine Blood Negative (Negative) Urine Nitrite Negative (Negative) Ur Leukocyte Esterase Negative (Negative) Independent Interpretation I performed an independent interpretation of an: CT Scan Interpretation: no visible hernia, agree w/ some pericolonic stranding in LLQ, no visible abscess or free air Radiology Impression Discussion of test interpretation with radiology: I have reviewed the radiologist's reading. Radiologist Impression: EXAMINATION: CT ABDOMEN AND PELVIS WITHOUT CONTRAST? CLINICAL INFORMATION: Patient ate a tampon. Abdominal pain. Rule out obstruction.? COMPARISON: None available. TECHNIQUE: Multidetector volumetric imaging was performed from the superior aspect of the liver through the pubic symphysis. Sagittal and coronal reformatted images were obtained on the technologist's workstation.? This CT examination was performed using dose optimization techniques as appropriate, variously including the following: *Automated exposure control *Adjustment of mA and/or kV according to patient size (this includes techniques or standardized protocols for targeted exams where dose is matched to indication/reason for exam; i.e. extremities or head) *Use of iterative reconstruction technique DLP: 962 mGy-cm FINDINGS: LUNG BASES: The visualized lung bases are unremarkable.? LIVER, GALLBLADDER, AND BILIARY TREE: The liver is normal in size, shape, and attenuation. No focal hepatic lesion or biliary ductal dilatation is present. The gallbladder is unremarkable with no evidence of radiopaque gallstones, gallbladder wall thickening, or obvious pericholecystic inflammatory changes.? PANCREAS: Unremarkable.? SPLEEN: Unremarkable.? ADRENAL GLANDS: Unremarkable.? KIDNEYS AND URETERS: The kidneys are normal in size, shape, and attenuation. No hydronephrosis, hydroureter, or calculi seen. No perinephric stranding. ? BLADDER: Unremarkable.? GASTROINTESTINAL TRACT: The small and large bowel are unremarkable. The appendix is unremarkable.? ABDOMINAL WALL: No significant hernia is appreciated.? LYMPH NODES: Normal. VASCULAR: Unremarkable. PELVIC VISCERA: Foci of air noted within the vagina.? OSSEOUS STRUCTURES: Unremarkable.? CT/CT abdomen pelvis wo IV con IMPRESSION: No evidence of bowel obstruction.? Prescription Management I considered prescription management with: Pain Medication and Antibiotic Critical Care Time Critical Care Time Critical Care Time: No Discharge Plan Discharge Clinical Impression: Diverticulitis Patient Disposition: Home, Self-Care Instructions: Diverticulitis (ED), Diverticulitis Diet (ED) Additional Instructions: Your lab workup today was unremarkable. Your urine test was negative for infection. Your CT scan showed acute diverticulitis. Recommend a liquid diet the next 24-48 hours, slowly advance as tolerated Take the prescribed antibiotics as directed, complete the entire course and do not miss any doses Take the prescribed ibuprofen for mild-moderate pain and hydrocodone for severe pain only. If you develop new or worsening symptoms call 911 or come back to the ER for further evaluation. Prescriptions: New amoxicillin-pot clavulanate 875-125 mg tablet 1 tab PO BID Qty: 14 0RF ibuprofen 600 mg tablet 600 mg PO Q8H PRN (Reason: fever or pain) Qty: 14 0RF hydrocodone-acetaminophen 5-325 mg tablet 1 tab PO TID PRN (Reason: severe pain (scale score 7-10)) Qty: 6 0RF Rx Instructions: Partial Fill upon patient request. ondansetron 4 mg tablet,disintegrating 4 mg PO Q8H PRN (Reason: nausea and vomiting) Qty: 6 0RF No Action cyclobenzaprine 10 mg tablet 10 mg PO TID PRN (Reason: muscle spasm) Qty: 10 0RF prednisone 20 mg tablet 40 mg PO DAILY Qty: 10 0RF amoxicillin-pot clavulanate 500-125 mg tablet 1 tab PO Q8H Interventions: ED Discharge Assessment Last Done: 11/22/22 18:07 Discharge Date/Time: 11/22/22 18:08
[2022-11-22 13:02] LABS: MANUAL DIFF FLAG NO
[2022-11-22 13:03] LABS: Basophils Absolute Auto 0.1 X10*3/uL (0.0-0.2); Basophils Percent Auto 0.5 % (0-2); Eosinophils Absolute Auto 0.1 X10*3/uL (0.0-0.4); Eosinophils Percent Auto 1.4 % (0-4); Hematocrit 46.5 % (42.0-52.0); Imm Gran Abs Auto 0.03 X10*3/uL (0.00-0.03); Imm Gran Pct Auto 0.3 % (0.0-0.4); Lymphocytes Percent Auto 29.8 % (20-40); Mean Corpuscular HGB Conc 34.4 g/dl (31.0-36.0); Mean Corpuscular Hemoglobin 32.1 pg (27.0-33.0); Mean Corpuscular Volume 93.4 fL (80.0-98.0); Monocytes Absolute Auto 0.9 X10*3/uL (0.1-1.2); Monocytes Percent Auto 8.4 % (2-11); Neutrophils Absolute Auto 6.1 x10*3/uL (2.0-8.3); Neutrophils Percent Auto 59.6 % (45-73); Platelet Count 379 X10*3/uL (160-400); Red Blood Count 4.98 X10*6/uL (4.60-5.80); Red Cell Distribution Width 13.8 % (11.0-16.0); White Blood Count 10.2 X10*3/uL (4.8-10.8)
[2022-11-22 13:05] LABS: Appearance Urine Clear; Color Urine Yellow; Glucose Urine UA Negative (Negative); Leukocyte Esterase Urine Negative (Negative); Nitrite Urine Negative (Negative); PH 6.5 (5.0-9.0); Urine Blood Negative (Negative); Urine Ketones Negative (Negative); Urine Protein Negative (Neg-Trace)
[2022-11-22 13:27] LABS: Alanine Aminotransferase 15 U/L (0-40); Albumin Level 4.5 g/dL (3.5-5.0); Alkaline Phosphatase 81 U/L (39-117); Anion Gap 11 (12-20); Aspartate Amino Transferase 18 U/L (5-37); Bilirubin Direct 0.1 mg/dL (0.0-0.5); Bilirubin Total 0.4 mg/dL (0.0-1.0); Blood Urea Nitrogen 11 mg/dL (9-16); Calcium 9.6 mg/dL (8.4-10.2); Carbon Dioxide 28 mmol/L (22-29); Chloride 104 mmol/L (96-108); Creatinine Clr Calc Pharmacy 125.4; Estimated Glomerular Filt Rate > 60; Glucose Random 81 mg/dL (60-115); Lipase 26 U/L (8-78); Magnesium 2.1 mg/dL (1.6-2.6); Potassium 4.4 mmol/L (3.3-5.1); Sodium 139 mmol/L (135-145); Total Protein 7.8 g/dL (6.5-8.0)
[2022-11-22 16:45] VITALS: BP 156/83; PULSE 57; RESP 16; TEMP 36.8; O2SAT 100
== END 2022-11-22 18:08 | disposition home or self-care (01) ==
PROVIDERS: Physician Assistant; Emergency Provider Student in an Organized Health Care Education/Training Program; PCP Internal Medicine
DX: K57.32 Diverticulitis of large intestine without perforation or abscess without bleeding (principal); F17.210 Nicotine dependence, cigarettes, uncomplicated; Z79.899 Other long term (current) drug therapy
CPT/HCPCS: 36415; 74176; 80048; 80076; 81003; 83690; 83735; 85025; 99284

== ENCOUNTER 2023-12-12 07:41 | Outpatient (REF) | payer BC, SELFPAY ==
[2023-12-12 08:09] LABS: MANUAL DIFF FLAG NO
[2023-12-12 08:38] LABS: Basophils Absolute Auto 0.1 X10*3/uL (0.0-0.2); Basophils Percent Auto 0.6 % (0-2); Eosinophils Absolute Auto 0.1 X10*3/uL (0.0-0.4); Eosinophils Percent Auto 1.2 % (0-4); Imm Gran Abs Auto 0.06 X10*3/uL (0.00-0.03); Imm Gran Pct Auto 0.5 % (0.0-0.4); Lymphocytes Absolute Auto 2.1 X10*3/uL (1.2-4.9); Lymphocytes Percent Auto 17.6 % (20-40); Mean Corpuscular Hemoglobin 31.9 pg (27.0-33.0); Mean Corpuscular Volume 93.8 fL (80.0-98.0); Mean Platelet Volume 9.5 fL (9.4-12.4); Monocytes Absolute Auto 0.8 X10*3/uL (0.1-1.2); Monocytes Percent Auto 6.7 % (2-11); Neutrophils Absolute Auto 8.9 x10*3/uL (2.0-8.3); Neutrophils Percent Auto 73.4 % (45-73); Platelet Count 376 X10*3/uL (160-400); Red Blood Count 5.01 X10*6/uL (4.60-5.80); Red Cell Distribution Width 13.6 % (11.0-16.0); White Blood Count 12.2 X10*3/uL (4.8-10.8)
[2023-12-12 09:09] LABS: Alanine Aminotransferase 16 U/L (0-40); Albumin Level 4.4 g/dL (3.5-5.0); Alkaline Phosphatase 88 U/L (39-117); Anion Gap 11 (12-20); Aspartate Amino Transferase 17 U/L (5-37); Bilirubin Total 0.5 mg/dL (0.0-1.0); Blood Urea Nitrogen 15 mg/dL (9-16); Calcium 9.6 mg/dL (8.4-10.2); Carbon Dioxide 27 mmol/L (22-29); Chloride 108 mmol/L (96-108); Cholesterol 206 mg/dL (<200); Estimated Glomerular Filt Rate > 60; Glucose Fasting 104 mg/dL (60-99); HDL Cholesterol 40 mg/dL (>40); LDL Cholesterol Calculated 151 mg/dL (<100); Potassium 5.3 mmol/L (3.3-5.1); Sodium 141 mmol/L (135-145); Total Protein 7.7 g/dL (6.5-8.0); Triglycerides 76 mg/dL (<150)
[2023-12-12 09:31] LABS: Prostate Specific Antigen 1.69 ng/mL (<0.05-4.0)
== END 2023-12-12 07:42 | disposition home or self-care (01) ==
LOC: HO.LAB 07:41
PROVIDERS: PCP Internal Medicine; Visit Provider Internal Medicine
DX: E78.00 Pure hypercholesterolemia, unspecified (principal); R74.01 Elevation of levels of liver transaminase levels; Z12.5 Encounter for screening for malignant neoplasm of prostate
CPT/HCPCS: 36415; 80053; 80061; 84153; 85025

== ENCOUNTER 2024-01-27 12:19 | Day surgery (SDC) | payer BC, SELFPAY ==
[2024-01-08 14:04] VITALS: BMI 30.2
[2024-01-08 14:24] VITALS: BMI 30.2
--- NOTE | 2024-01-26 08:37 | HO.ANESPROP2 ---
Documented by User: Heaven Post NP 01/26/24 08:37 HPI - Anesthesia Eval Consult details Narrative: 63yo M for Colonoscopy [facility] Active Problems Active Problems: All Active Problems Diastasis recti (Acute) Past Medical History Medical History Chronic infection GERD (gastroesophageal reflux disease) Hyperlipidemia Family History Family History Mother Cancer of unknown origin Father Cancer of unknown origin Surgical History Surgical History (Updated 01/26/24 @ 07:37 by Martine Martinez, RN) History of dental surgery History of esophagogastroduodenoscopy (EGD) H/O colonoscopy History of mandibular surgery Social History Social History (Updated 01/08/24 @ 14:03 by Kathy Beth RN) Household Members: Spouse Alcohol intake: current Alcohol intake frequency: does not drink Patient Tobacco Use Status: Current everyday Tobacco user Tobacco use type: Cigarette Cigarette Packs Per Day: 1 Cigarettes Per Day: 20.0 Meds Allergies Allergy/AdvReac Type Severity Reaction Status Date / Time shellfish derived Allergy Severe ANAPHYLAXIS Verified 09/25/21 09:52 ciprofloxacin [CIPROFLOXACIN] Allergy Intermediate FLU LIKE Verified 09/25/21 09:52 SYMPTOMS Exam Height,Weight and Vital Signs: Height 6 ft Weight 101.151 kg Assessment and Plan Assessment Anesthesia Assessment: Chart Reviewed Documented by User: Magalys Turner MD 01/27/24 13:15 [facility] Past Medical History Medical History Chronic infection GERD (gastroesophageal reflux disease) Hyperlipidemia Family History Family History Mother Cancer of unknown origin Father Cancer of unknown origin Family history of problems with anesthesia: No Surgical History Surgical History (Updated 01/26/24 @ 07:37 by Martine Martinez RN) History of dental surgery History of esophagogastroduodenoscopy (EGD) H/O colonoscopy History of mandibular surgery History of Problems with Anesthesia: No Social History Social History (Updated 01/08/24 @ 14:03 by Kathy Beth RN) Household Members: Spouse Alcohol intake: current Alcohol intake frequency: does not drink Patient Tobacco Use Status: Current everyday Tobacco user Tobacco use type: Cigarette Cigarette Packs Per Day: 1 Cigarettes Per Day: 20.0 Meds Allergies Allergy/AdvReac Type Severity Reaction Status Date / Time shellfish derived Allergy Severe ANAPHYLAXIS Verified 09/25/21 09:52 ciprofloxacin [CIPROFLOXACIN] Allergy Intermediate FLU LIKE Verified 09/25/21 09:52 SYMPTOMS Exam Airway Mallampati Class: II (caps, implants through out) TM Dist: >3cm Neck ROM: Full Heart: rrr Lungs: cta Assessment and Plan Assessment Anesthesia Assessment: Anesthesia Plan Discussed Final Anesthetic Review Family History of Problems with Anesthesia: No History of Problems with Anesthesia: No NPO: Yes ASA Class: II Final Preanesthetic Review: No Changes in Pt Med Stat, Meds/Allgs Chart Reviewed and Consent Obtained/Reviewed Patient Risk: Low Procedure Risk: Low Anesthetic Plan Anesthetic Plan: MAC: Disposition: Standard PACU
[2024-01-27 12:32] VITALS: BMI 29.3
--- NOTE | 2024-01-27 13:12 | MHC.SHP ---
Pre-Procedural Eval Section A - 24 Hr Update-Section A only Date of Service: 01/27/24 Section B - Complete if H&P > 30 days Chief Complaint: Encounter for screening for malignant neoplasm of Details of Present Illness: see H*P no changes Relevant Family History (Specify if Yes): No Relevant Social History: None Present Medications: see Short Stay Collaborative assessment Medical History: No relevant PMH Allergies: Allergies Allergy/AdvReac Type Severity Reaction Status Date / Time shellfish derived Allergy Severe ANAPHYLAXIS Verified 09/25/21 09:52 ciprofloxacin [CIPROFLOXACIN] Allergy Intermediate FLU LIKE Verified 09/25/21 09:52 SYMPTOMS Review of Systems Sugical H&P ROS: Negative: Constitution, Cardiovascular, Respiratory, Neurological, Psychiatric, Hem-Onc, Allergic/Immunologic, Gastrointestinal, Genitourinary, Musculoskeletal, Integumentary, Endocrine and Eyes/Ears/Nose/Throat Exam Surgical H&P Exam: Normal: HEENT, Normal: Heart, Normal: Lungs, Normal: Extremities, Normal: Abdomen, Normal: Skin and Normal: Neurological Plan Diagnosis/Plan: Unchanged I have reviewed the history and physical and performed a pertinent physical examination on my patient. No changes have occurred unless specified. Time Spent With Patient Time: Total time managing care of this patient today ____ minutes.
[2024-01-27 13:23] VITALS: BP 144/87; PULSE 63; RESP 16; TEMP 36.6; O2SAT 97
[2024-01-27] MEDS: Lactated Ringers 1,000 ML 100 ML IVCONT (13:34)
[2024-01-27 14:30] VITALS: BP 126/69; PULSE 59; RESP 16; TEMP 36.4; O2SAT 97
[2024-01-27 14:45] VITALS: BP 124/70; PULSE 58; RESP 16; TEMP 36.2; O2SAT 97
--- NOTE | 2024-01-27 15:01 | OP_ITS ---
DATE OF SERVICE: 01/27/2024 SURGEON: Paul Jones MD INDICATIONS: Colon cancer screening. PREOPERATIVE DIAGNOSIS: POSTOPERATIVE DIAGNOSIS: PROCEDURE PERFORMED: Colonoscopy to the terminal ileum with biopsy and snare polypectomy. ESTIMATED BLOOD LOSS: COMPLICATIONS: ANESTHESIA: Medications, monitored anesthesia care. ASSISTANTS: SPECIMENS: DESCRIPTION OF PROCEDURE: A history and physical were performed. The risks and benefits of the procedure were explained to the patient. Informed consent was obtained. The patient was placed in the left lateral decubitus position. A digital rectal exam was performed and was found to be normal. The Olympus pediatric video colonoscope was introduced into the rectum and advanced to the cecum. The cecum was identified by transillumination, palpation, and identification of ileocecal valve. Examination was performed. The scope was removed. He tolerated the procedure well and was returned to the recovery area in stable condition. FINDINGS: The terminal ileum was examined and appeared normal. The visualized colonic mucosa was within normal limits without evidence of masses or ulcers. Three polyps were identified. All measured less than 10 mm. These were removed with a combination of snare and biopsy forceps. These were located at 90 cm, 60 cm, and 20 cm. There was mild sigmoid diverticulosis. The quality of the prep was good. Retroflexed examination showed small internal hemorrhoids. IMPRESSION: Colon polyps. RECOMMENDATION: Follow up the biopsy results. MD FELECIA Elizabeth/GIULIA / [id number]
== END 2024-01-27 15:16 | disposition home or self-care (01) ==
PROVIDERS: PCP Internal Medicine; Visit Provider Internal Medicine Gastroenterology
PROC: 0DJD8ZZ Inspection of Lower Intestinal Tract, Via Natural or Artificial Opening Endoscopic (ICD-10-PCS; CPT 45378; principal; 2024-01-27 13:50)
DX: Z12.11 Encounter for screening for malignant neoplasm of colon (principal); D12.3 Benign neoplasm of transverse colon; K57.30 Diverticulosis of large intestine without perforation or abscess without bleeding; K64.8 Other hemorrhoids; Z83.719 Family history of colon polyps, unspecified; Z80.0 Family history of malignant neoplasm of digestive organs; E78.5 Hyperlipidemia, unspecified; K21.9 Gastro-esophageal reflux disease without esophagitis; F17.210 Nicotine dependence, cigarettes, uncomplicated
CPT/HCPCS: 45385; 45380; 88305; J2003; J2704

== ENCOUNTER 2024-08-01 14:10 | Outpatient (AMB) | payer BC, SELFPAY ==
--- NOTE | 2024-08-01 14:03 | MHC.PC.OV ---
Vital Signs 08/01/24 14:11 Height 6 ft Weight 228 lb BMI 30.9 BP 126/70 Blood Pressure Location Lt brachial Position Sitting Pulse 64 Pulse Source Pulse Oximeter Temp 97.9 F Temp Source Axillary Pulse Oximetry (%) 98 Oxygen Delivery Method Room Air Intake Visit Reasons: Routine Public Relations Account Supervisor Required: No Accompanied by: Self / Same As Patient Allergies shellfish derived Allergy (Severe, Verified 08/01/24 14:03) ANAPHYLAXIS ciprofloxacin [CIPROFLOXACIN] Allergy (Intermediate, Verified 08/01/24 14:03) FLU LIKE SYMPTOMS Tobacco use date assessed: 08/01/24 Dental Screening Dental Screen Date: 08/01/24 Did you have a dental visit in the last 12 months?: Yes Did you have a dental problem in the last 6 months where you did not have access to dental care?: No [facility] Medical History (Updated 08/01/24 @ 14:51 by Galileo Machado MD) Frozen shoulder syndrome Chronic infection GERD (gastroesophageal reflux disease) Hyperlipidemia Surgical History History of dental surgery History of esophagogastroduodenoscopy (EGD) H/O colonoscopy (~01/27/24) History of mandibular surgery Family History (Updated 08/01/24 @ 14:17 by Jennifer Cardoza MA) Mother Cancer of unknown origin Father Cancer of unknown origin Social History Household Members: Spouse Housing: House Alcohol intake: current Alcohol intake frequency: does not drink Patient Tobacco Use Status: Current everyday Tobacco user Tobacco use type: Cigarette Cigarette Packs Per Day: 1 Cigarettes Per Day: 20.0 e-Cigarette/Vaping Use: Currently Using service: No Current occupational status: employed Cognitive needs: No Hearing needs: No Vision needs: Yes (rx glasses) Questionnaire PHQ-9 Over the last 2 weeks, how often have you been bothered by any of the following problems? 1. Little interest or pleasure in doing things: not at all 2. Feeling down, depressed, or hopeless: not at all 3. Trouble falling or staying asleep, or sleeping too much: not at all 4. Feeling tired or having little energy: not at all 5. Poor appetite or overeating: not at all 6. Feeling bad about yourself - or that you are a failure or have let yourself or your family down: not at all 7. Trouble concentrating on things, such as reading the newspaper or watching television: not at all 8. Moving or speaking so slowly that other people could have noticed. Or the opposite - being so fidgety or restless that you have been moving around a lot more than usual: not at all 9. Thoughts that you would be better off or of hurting yourself in some way: not at all Total score: 0 Source: Developed by Drs. Luis A Bronson, Caryn Rogers, Kevin Do and colleagues, with an educational edison from [employer]. Thrive Questionnaire Date Thrive assessed: 08/01/24 I am a: Patient Within the past 12 months, did the food you bought not last and you didn't have the money to get more?: Never true Within the past 12 months, did you worry whether your food would run out before you got money to buy more?: Never true Do you have trouble paying for medicines?: No Do you have trouble getting transportation to medical appointments?: No Do you have trouble paying your heating and electricity bill?: No Do you have trouble taking care of your child, family member or friend?: No Do you have trouble with day-to-day activities such as bathing, preparing meals, shopping, managing finances, etc.?: No Are you currently unemployed and looking for a job?: No Are you interested in more education?: No THRIVE Score: 0 AUDIT C Alcohol Use Questionnaire (AUDIT-C) 1. How often do you have a drink containing alcohol?: Monthly or less 2. How many drinks containing alcohol do you have on a typical day when you are drinking?: 1 or 2 3. How often do you have six or more drinks on one occasion?: Less than monthly Total Score: 2 PARISH-7 AMB Questionnaire PARISH-7 Date PARISH - 7 assessed: 08/01/24 Feeling nervous, anxious, or on edge: 0 = Not at all Not being able to stop or control worryin = Not at all Worrying too much about different things: 0 = Not at all Trouble relaxin = Not at all Being so restless that it is hard to sit still: 0 = Not at all Becoming easily annoyed or irritable: 0 = Not at all Feeling afraid as if something awful might happen: 0 = Not at all Total PARISH-7 score (0-4 normal; 5-9 mild; 10-14 moderate; 15-21 severe): 0 Source: Developed by Drs. Luis A Bronson, Caryn Rogers, Kevin Do and colleagues, with an educational edison from [employer]. Physical exam (Primary Care) Vital Signs: Last Vital Signs Temp 97.9 F 08/01/24 14:11 Pulse 64 08/01/24 14:11 BP 126/70 08/01/24 14:11 Pulse Ox 98 08/01/24 14:11 Oxygen Delivery Method Room Air 08/01/24 14:11 BMI result Body Mass Index 30.9 Tobacco/Smoking Status: Tobacco use Status Tobacco use date assessed 08/01/24 08/01/24 14:05 Patient Tobacco Use Status Current everyday Tobacco 08/01/24 14:05 Tobacco use type Cigarette 08/01/24 14:05 e-Cigarette/Vaping Use Currently Using 08/01/24 14:05 PHQ-9: PHQ-9 Score PHQ-9: Total score 0 08/01/24 14:06 Thrive Assessment: Date of Thrive Assessment Date Thrive assessed 08/01/24 08/01/24 14:06 Coding Level of Care Code New Pt Level 4 (20794) Complex EM visit Add On G2211 Diagnoses Hyperlipidemia E78.5 Palpitations R00.2 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 Frozen shoulder syndrome M75.00 Assessment & Plan Assessment & Plan (1) Hyperlipidemia: Code(s): E78.5 - Hyperlipidemia, unspecified Category: Medical Plan: Pt was encouraged to start the statins (2) Palpitations: Code(s): R00.2 - Palpitations Plan: ECG monitor requested (3) Infection of parotid gland: Code(s): K11.20 - Sialoadenitis, unspecified Plan: ENT appt requested (4) Frozen shoulder syndrome: Code(s): M75.00 - Adhesive capsulitis of unspecified shoulder Category: Medical Plan: Xr of the shoulder, meloxicam and PT Plan History of Present Illness The patient is a 63-year-old male presenting with shoulder pain, vivid dreams, chronic salivary gland disorder, and palpitations. The right shoulder pain developed four weeks ago without notable injury. The patient experiences difficulty lifting objects, reflecting impaired mobility. He suspends activities that typically exacerbate the pain. Additionally, the patient's vivid dreams began approximately three weeks ago, correlating with perceived stress, and have increased with frequency compared to his baseline. His chronic salivary gland disorder dates back to consultations with an oral surgeon some months ago, with interim management consisting of episodic antibiotics for inflammation. Despite imaging scans, definitive findings remain elusive. Palpitations, occurring during yard work and strenuous exertion, have been intermittently problematic and occurred over preceding months, but haven?t resulted in syncope. These were assessed with a stress test previously without alarming results. Social History - Employment: Works for [employer], with 33 years of service; not retired and remains active. - Functional Status: Engages in yard work and outdoor activities. Review of Systems - Musculoskeletal: Reports right shoulder pain with limited motion. - Neurology: Denies sleep disturbances; reports frequent vivid dreams. - Cardiovascular: Reports palpitations; denies syncope. - Oral: Reports chronic salivary gland disorder with inflammation. - General: Reports feeling well despite presenting concerns. Physical Exam General: Cooperative and healthy appearing Nutritional Appearance: Well nourished Orientation/consciousness: Patient oriented x3 Limitations: No limitations Head: Normal to inspection General: Appearance normal, both eyes and all related structures Neck: Normal visual inspection Chest: Normal palpation of entire chest wall Respiratory: N ormal respiratory effort Neurology: Patient oriented x3, reports episodes of dizziness and vivid dreams. Results - Tests and Diagnostics: Previous stress test showed no significant abnormalities. Plan 1. Right Shoulder Pain - Order x-ray and start anti-inflammatory medication. - Physical therapy and potential orthopedic consult if needed. 2. Vivid Dreams - Monitor and assess any effects on life quality. 3. Chronic Salivary Gland Disorder - Refer to ENT and continue rescue antibiotic treatment for exacerbations. 4. Palpitations - Conduct Holter monitoring and keep a symptom diary. 5. Hypercholesterolemia - Resume statin use and monitor cholesterol levels regularly. Discussion Notes I discussed with the patient the suggested investigations and management strategies for each of his complaints. For the shoulder pain, I highlighted the importance of diagnostics (x-ray) and therapeutic interventions like physical therapy, adding that a referral to orthopedics might become necessary if symptoms persist. Regarding his vivid dreams, I mentioned monitoring without immediate intervention since these might be transient. For the chronic salivary gland disorder, an ENT referral is aimed at further investigative work, acknowledging the challenge posed by unclear prior findings. Addressing palpitations included Holter monitoring to better understand the nature and frequency of his symptoms. I underscored the necessity of restarting his cholesterol medication, providing reassurance about the safety of concurrent antibiotic usage. Follow-up and additional care plans were iterated for effectiveness and patient safety. Patient Instructions - Get prescribed x-ray of shoulder. - Begin physical therapy for shoulder pain. - Restart prescribed statin for cholesterol. - Track and report palpitations during Holter monitor period. - Follow up with ENT for salivary gland issue. - Keep a symptom diary of vivid dreams and palpitations. - Return for follow-up in six weeks or if symptoms worsen. Orders: Orders ECG 3 day holter monitor Today E78.5 - Hyperlipidemia, unspecified, K11.20 - Sialoadenitis, unspecified, R00.2 - Palpitations XR shoulder RT min 2V Today S43.401A - Unspecified sprain of right shoulder joint, initial encounter Medications: New amlodipine 5 mg PO DAILY 90 tabs 1RF meloxicam 15 mg PO DAILY 14 tabs 0RF atorvastatin 10 mg PO BEDTIME 90 tabs 1RF
[2024-08-01 14:11] VITALS: BP 126/70; PULSE 64; TEMP 36.6; O2SAT 98; BMI 30.9
--- OUTSIDE RECORDS SUMMARY | 2024-08-01 14:24 | XMS_ITS | Data Portability ---
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 Plan - Prescribe Bactrim DS twice daily for 10 days to manage the recurrent salivary gland infection. - Provide a referral to a vinegar maker and MD ENT for further evaluation and management of the recurrent salivary gland infection. - Give discharge instructions for managing salivary gland infections and cellulitis. Prescription - Bactrim DS, twice a day for 10 days Appointments - Referral to a vinegar maker - Referral to an ENT specialist at [facility] ENT Type of service Chat Originating Location Home Distant Location Offsite Platform used [employer] 15 minutes total time spent by me on the date of service doing chart review, history, exam, documentation and further activities per the note. The? ? ?patient's? ? ?presentation was of low complexity an acute uncomplicated illness or injury The? ? ?patient's? ? ?evaluation involved review of prior external notes from outpatient clinical notes The? ? ?patient's? ? ?management necessitated low risk of morbidity from additional diagnostic testing or treatment. The? ? ?patient'sevalua tion did not include a consultation Not available 07/14/2024 19:52:25 Plan of Treatment Reminders Order Date Submit Date Provider Last Modified By Organization Details Last Modified Time Details Appointments None recorded. Lab None recorded. Referral ENT surgery referral 2024 025 [facility], [address], [address], [place], [address], 13:31:23 Procedures None recorded. Surgeries None recorded. Imaging None recorded. Medication Orders Bactrim DS 800 mg-160 mg tablet 2024 025 [id number], [id number], [place], [address], 20:52:09 Patient TargetsNo targets recorded. Patient Instructions Encounter Date Encounter Id Patient Instructions Last Modified By Organization Details Last Modified Time 07/14/2024 [id number] Based on our discussion, I have outlined the following instructions for you: - Take Bactrim DS two times a day for 10 days to help with your salivary gland infection. - Follow the instructions provided to you for taking care of salivary gland infections and cellulitis. Next appointment(s): - Referral to a vinegar maker - Referral to an ENT specialist at [facility] ENT Thank you again for your visit, and we look forward to supporting you in your journey to better health. Proceed to the emergency department immediately if you have any new or concerning symptoms, worsening symptoms, or any condition not limited to but including shortness of breath, chest pain, abdominal pain, vomiting, severe headache, confusion, changes in vision, swelling of your extremities, or any other concerns. In an emergency dial 911 for immediate assistance. Not available 07/14/2024 19:54:11 Reason for Referral ENT Surgery Referral for Hyp ertrophy of salivary gland Referring Physician: Phil Ku, Emergency Medicine, Encounter Date: 07/14/2024 Medical Equipment None Reported. Medications Name Sig Start Date Stop Date Status Note LastModified by Organization Details LastModified Time doxycycline hyclate 100 mg capsule TAKE 1 CAPSULE BY MOUTH TWICE A DAY FOR 7 DAYS active Not Available Not Available No t Available cefuroxime axetil 250 mg tablet TAKE 1 TABLET BY MOUTH EVERY 12 HOURS WITH FOOD active Not Available Not Available No t Available clindamycin HCl 300 mg capsule TAKE 1 CAPSULE ORALLY EVERY 6 HOURS FOR 7 DAYS active Not Available Not Available No t Available atorvastatin 10 mg tablet TAKE ONE TABLET BY MOUTH EVERY DAY active Not Available Not Available No t Available cefpodoxime 200 mg tablet TAKE 1 TABLET BY MOUTH EVERY 12 HOURS WITH FOOD active Not Available Not Available No t Available ibuprofen 800 mg tablet TAKE 1 TABLET (800MG) BY MOUTH EVERY 12 HOURS WITH FOOD OR MILK NEEDED FOR 5 DAYS. active Not Available Not Available No t Available metronidazole 500 mg tablet TAKE 1 TABLET BY MOUTH THREE TIMES A DAY FOR 7 DAYS active Not Available Not Available No t Available amlodipine 5 mg tablet TAKE ONE TABLET BY MOUTH EVERY DAY active Not Available Not Available No t Available sulfamethoxazol e 800 mg-trimethoprim 160 mg tablet TAKE ONE TABLET BY MOUTH EVERY 12 HOURS active Not Available Not Available No t Available cephalexin 500 mg capsule TAKE ONE CAPSULE BY MOUTH TWICE A DAY active Not Available Not Available No t Available cephalexin 500 mg tablet TAKE 1 TABLET BY MOUTH EVERY 6 HOURS FOR 10 DAYS active Not Available Not Available No t Available ibuprofen 600 mg tablet TAKE 1 TABLET BY MOUTH EVERY 8 HOURS WITH FOOD OR MILK NEEDED active Not Available Not Available No t Available cefuroxime axetil 500 mg tablet TAKE 1 TABLET BY MOUTH EVERY 12 HOURS WITH FOOD active Not Available Not Available No t Available albuterol sulfate HFA 90 mcg/actuation aerosol inhaler INHALE 2 PUFFS 4 TIMES A DAY NEEDED MAY USE EVERY 4 TO 6 HOURS SHAKE WELL active Not Available Not Available No t Available fluticasone propionate 50 mcg/actuation nasal spray,suspensio n SPRAY 1 SPRAY INTO EACH NOSTRIL TWO TIMES A DAY IF NEEDED active Not Available Not Available No t Available amoxicillin 875 mg-potassium clavulanate 125 mg tablet TAKE 1 TABLET BY MOUTH EVERY 12 HOURS FOR 7 DAYS active Not Available Not Available No t Available amoxicillin 500 mg-potassium clavulanate 125 mg tablet TAKE 1 TABLET BY MOUTH EVERY 12 HOURS FOR 10 DAYS active Not Available Not Available No t Available chlorhexidine gluconate 0.12 % mouthwash RINSE WITH 15 ML BY MOUTH FOR 30 SECONDS TWICE DAILY SPIT OUT active Not Available Not Available No t Available levocetirizine 5 mg tablet TAKE 1 TABLET BY MOUTH DAILY active Not Available Not Available No t Available Vitals None Recorded Social History None recorded. Functional Status None recorded. Mental Status None recorded. Family History Nothing Reported. Medical History No medical history recorded. Past Encounters Encounter ID Performer Location Encounter Start Date Encounter Closed Date Diagnosis/Indication Diagnosis SNOMED-CT Code Diagnosis ICD10 Code Diagnosis Note [id number] DO Mehnaz CROOKS [facility] - [address] [address] 07/14/2024 19:32:28 07/19/2024 12:30:14 Neck pain 20477910 M54.2 Hypertroph y of salivary gland 08346123 K11.1 Health Concerns Section Related Observation LastModified by Organization Detai ls LastModified Time None Recorded Concern Status LastModified by Organization Details LastModified Time None Recorded Advance Directives Directive None Recorded Payers Encounter Date Sequence Insurance Name Policy Number Policy Polanco Covered Member ID Polanco Member ID Guarantor Name 07/14/2024 1 [facility] ([facility]) Román Ruggiero [id number] Román Ruggiero Notes Date Note Type Note Provider Name and Address Organization Details Recorded Time 07/14/2024 text/html Román Ruggiero, 63-year-old male - Has a history of left-sided recurrent salivary gland infections. - Currently experiencing a flare-up of the salivary gland infection. - Symptoms include mild swelling and tenderness under the jawline, and tenderness under the left tongue and inside the jaw. - Symptoms have been ongoing for about 10 days. - No fever, no difficulty swallowing, and no difficulty moving the neck. - Typically prescribed Bactrim for salivary gland infections. - Tried Augmentin in the past without success. PHIL KU DO [address] [facility] [address], [place], [address], [place] - [facility] 07/14/2024 19:54:41
--- OUTSIDE RECORDS SUMMARY | 2024-08-01 14:24 | XMS_ITS ---
Author Organization [facility] Address [address] [place] [address] Care Team Providers Care Sales Support Consultant Name Role Phone [facility] [phone] REASON FOR VISIT f/up skin infection Encounters Encounter Location Date Provider Diagnosis [facility] [address] [place] [address] 08/21/2023 [facility] Plan Of Treatment No Information Progress Notes * Román RUGGIERODOB:1960 (63 yo M)Acc No.[id number]:08/21/2023 Progress Notes Patient:?Román RUGGIERO Provider:?[facility] :1960???Age:62 Y???Sex:Male [place] e:08/21/2023 Phone: Address:[address], [place] Subjective: * Chief Complaints: * ???1. F/up skin infection. * Medical History:? Objective: * Vitals:? Assessment: Plan: * Treatment: * Billing Information: * Visit Code:? * Procedure Codes:? * Electronic signature of [facility] on 08/01/2024 at 02:23 PM EDT Sign off status: Pending * Provider:?[facility] Date:?0 08/21/2023 Generated for Regla enamorado/Carmel/Debbie on:?08/01/2024 02:23 PM EDT
--- OUTSIDE RECORDS SUMMARY | 2024-08-01 14:24 | XMS_ITS ---
Author Organization [facility] Address [address] [place] [address] Care Team Providers Care Search Engine Optimization Strategist Name Role Phone Robert Smith MD Primary Care Provider Paul Curry Jr [phone] REASON FOR VISIT screening Encounters Encounter Location Date Provider Diagnosis [facility] [address], [place] [phone] 01/27/2024 Paul Jones Jr Colon cancer screening Z12.11 and Colon polyps K63.5 Assessments Encounter Date Diagnosis (ICD Code) Assessment Notes Treatment Notes Treatment Clinical Notes Section Notes 01/27/2024 Colon cancer screening (ICD-10 - Z12.11) 01/27/2024 Colon polyps (ICD-10 - K63.5) Plan Of Treatment No Information Progress Notes * NATHALIE PHILLIPSDOB:1960 (63 yo M)Acc No.[id number]:01/27/2024 COLON WITH MAC Patient:?NATHALIE PHILLIPS Provider:?Paul Jones MD :1960???Age:63 Y???Sex:Male Los e:01/27/2024 Address:[address] [place], [place] [id number] Pcp:Robert Smith MD Subjective: * Chief Complaints: * ???1. Screening. * Medical History:? Objective: * Vitals:? Assessment: * Assessment: 1.?Colon cancer screening - Z12.11 (Primary)???2.?Colon polyps - K63.5??? Plan: * Treatment: * Procedure Codes:?14639 LESIO N REMOVAL COLONOSCOPY, 12796 COLONOSCOPY AND BIOPSY, Modifiers: 60 , 4680F INTRVL 3+YRS PTS CLNSCP DOCD * * The named appointment provid er may or may not be the originator of this progress note, and it is not deemed complete until electronically signed by the appointment provider. Sign off status: Pending * Provider:?Paul Jones MD Date:?1 03/28/2023 Generated for Regla enamorado/Carmel/Delilahsmitting on:?08/01/2024 02:24 PM EDT
--- OUTSIDE RECORDS SUMMARY | 2024-08-01 14:24 | XMS_ITS ---
Author Organization [facility] Address [address] [place] [address] Care Team Providers Care Fire Control Officer Name Role Phone CHELLY MANTILLA Unavailable [phone] Allergies No Known Allergies REASON FOR VISIT KV TO MW, Prescription Refill, Patient requesting service from promotional campaign rx_refill Medications Medication SIG (Take, Route, Frequency, Duration) Notes Start Date End Date Status Cephalexin 500 MG Oral for 30 Days Active Cefpodoxime Proxetil 200 MG Oral for 10 Days Active Chlorhexidine Gluconate 0.12 % Mouth/Throat for 15 Days Act carter Medrol 4 MG as directed Orally O nce a day for 6 days 05/10/2023 Active Fluticasone Propionate 50 MCG/ACT SPRAY 1 SPRAY INTO EACH NOSTRIL TWO TIMES A DAY IF NEEDED Nasal for 30 Days Active Amoxicillin-Pot Clavulanate 875-125 MG Oral for 7 Days Active Cephalexin 500 MG 1 capsule Orally francisco ry 6 hrs for 7 days 08/14/2023 Active Social History Tobacco Use: Social History Observation Description Date Details (start date - stop date) Current Smoker NA - NA Tobacco Use/Smoking Question Answer Notes Are you a current smoker Tobacco Control (Standard) Question Answer Notes Tobacco use: Current smoker Vital Signs Height 72 in 08/14/2023 Weight 225 lbs 08/14/2023 BMI 30.51 kg/m2 08/14/2023 Patient Reported Normal Bloo d PresurePatient Reported Normal Temperature Encounters Encounter Location Date Provider Diagnosis [facility] [address] [place] [address] 08/14/2023 CHELLY MANTILLA Skin infection L08.9 Assessments Encounter Date Diagnosis (ICD Code) Assessment Notes Treatment Notes Treatment Clinical Notes Section Notes 08/14/2023 Skin infection (ICD-10 - L08.9) 08/14/2023 Other Follow the treatment plan as indicated [...] with your medicine. You participated in a [employer] Rx request, considered an asynchronous visit where you provide your symptoms and medical history, and a treatment plan is formulated based on your submission. A treatment plan and patient education were provided based on your submission. If symptoms persist or worsen, you should seek in-person care or call 911 immediately for further evaluation. Plan Of Treatment Medication Medication Name Sig Start Date Stop Date Notes Cephalexin 500 MG 1 capsule Orally every 6 hrs for 7 days 08/14/2023 Treatment Notes Assessment Notes Other Follow the [...] Follow Up: PCP, Reason: Progress Notes * Román RUGGIERODOB:1960 (62 yo M)Acc No.[id number]:08/14/2023 Patient:?Román RUGGIERO Provider:?CHELLY MANTILLA MD :1960???Age:62 Y???Sex:Male Los e:08/14/2023 Phone: Address:[address] [place] [address] [place], [id number] Subjective: * Chief Complaints: * ???KV TO MW, Prescription Re fillPatient requesting service from promotional campaign rx_refill * HPI: ???TeleHealth Complaint History:?Reason for visit: Medication RequestRequested: ? Keflex, 500mg, 10 days Reason: ? Skin infection How Long: ? Time to time Side Effects: ? Prescriber: ? Dr Gonzalez PER PT:?Cant find my prescription. Cant get in touch with doctor. Need for holidaybweekend. * ROS:?All Other Systems:?Review of Systems (ROS)?See HPI for details.? * Medical History:? * Surgical History:?Denies Pas t Surgical History * Hospitalization/Major Diagno stic Procedure:?Denies Past Hospitalization * Family History:? denies. * Social History:?Tobacco Use:?Tobacco Use/Smoking?Are you a?current smoker ?Tobacco Control (Standard)?Tobacco use:?Current smoker ???Drugs/Alcohol:?Do you drink alcohol?: No. * Medications:?TakingAmoxicill in-Pot Clavulanate 875-125 MG Tablet Oral Cephalexin 500 MG Capsule Oral Chlorhexidine Gluconate 0.12 % Solution Mouth/Throat Cefpodoxime Proxetil 200 MG Tablet Oral Fluticasone Propionate 50 MCG/ACT Suspension SPRAY 1 SPRAY INTO EACH NOSTRIL TWO TIMES A DAY IF NEEDED Nasal Medrol 4 MG Tablet Therapy Pack as directed Orally Once a day Medication List reviewed and reconciled with the patientTaking Amoxicillin-Pot Clavulanate 875-125 MG Tablet Oral Taking Cephalexin 500 MG Capsule Oral Taking Chlorhexidine Gluconate 0.12 % Solution Mouth/Throat Taking Cefpodoxime Proxetil 200 MG Tablet Oral Taking Fluticasone Propionate 50 MCG/ACT Suspension SPRAY 1 SPRAY INTO EACH NOSTRIL TWO TIMES A DAY IF NEEDED Nasal Taking Medrol 4 MG Tablet Therapy Pack as directed Orally Once a day Medication List reviewed and reconciled with the patient * Allergies:?N.K.D.A.no[Allerg ies Verified] Objective: * Vitals:?Ht: 72 in, Wt:225lbs , BMI:30.51Index. Patient Reported Normal Blood Presure Patient Reported Normal Temperature. * Physical Examination:?Asynchronous visit, unable to assess. Assessment: * Assessment: 1.?Skin infection - L08.9 (P rimary)? Plan: * Treatment: 2.?Others? Notes: Follow the treatment plan as indicated by the provider. Take any medications as prescribed. If you have any questions about your prescription, ask the pharmacist. [id number] you think you may need emergency care. For example, call if:You have severe trouble breathing.You have a seizure.Call your doctor nowor seek immediate medical care if:You have trouble [...] expected.You are having a problem with your medicine.?? Clinical Notes:You participated in a [employer] Rx request, considered an asynchronous visit where you provide your symptoms and medical history, and a treatment plan is formulated based on your submission. A treatment plan and patient education were provided based on your submission. If symptoms persist or worsen, you should seek in-person care or call 911 immediately for further evaluation. ?? * Procedure Codes:?DEBBIE [facility] ant / CC Processing [id number] Office Visit, Est Pt., Level 2, delivered asynchronous, Modifiers: GQ * Follow Up:?PCP * Billing Information: * Visit Code:? * Procedure Codes:? DEBBIE [facility] / CC Processing Fee. [id number] Office Visit, Est Pt., Level 2, delivered asynchronous. Modifiers: GQ Images * Consent Form 08-14-2023 * Sign off status: Completed true * Provider:?CHELLY MANTILAL MD Date:?2023 Generated for Regla enamorado/Carmel/Aylinitting on:?08/01/2024 02:24 PM EDT History and Physical Notes * Physical Examination Category Sub-Category Detail Notes Section Note s Asynchronous vi sit, unable to assess
--- OUTSIDE RECORDS SUMMARY | 2024-08-01 14:24 | XMS_ITS ---
Author Organization [facility] Address [address] [place] [address] Care Team Providers Care Councilman Name Role Phone Luis CARROLL, Robert Primary Care Provider Paul Curry Jr REASON FOR VISIT screening Encounters Encounter Location Date Provider Diagnosis [facility] Outpatient [address] [place], [place] [id number] 01/12/2024 Paul Jones Jr Plan Of Treatment No Information Progress Notes * NATHALIE PHILLIPSDOB:1960 (63 yo M)Acc No.[id number]:01/12/2024 COLON WITH MAC Patient:?NATHALIE PHILLIPS Provider:?Paul Jones MD :1960???Age:63 Y???Sex:Male Los e:01/12/2024 Address:[address] [place], [place] [id number] Pcp:Robert Smith MD Subjective: * Chief Complaints: * ???1. Screening. * Medical History:? Objective: * Vitals:? Assessment: Plan: * Treatment: * * The named appointment provid er may or may not be the originator of this progress note, and it is not deemed complete until electronically signed by the appointment provider. Sign off status: Pending * Provider:?Paul Jones MD Date:?1 Generated for Printi ng/Faxing/eTransmitting on:?08/01/2024 02:23 PM EDT
--- OUTSIDE RECORDS SUMMARY | 2024-08-01 14:24 | XMS_ITS ---
Author Organization [facility] Address [address] [place] [address] Care Team Providers Care Parts Representative Name Role Phone Robert Smith MD Primary Care Provider Paul Curry Jr [phone] REASON FOR VISIT pathology Encounters Encounter Location Date Provider Diagnosis [facility] [address] [place] [address] 02/04/2024 Paul Jones Jr Plan Of Treatment No Information Progress Notes * NATHALIE PHILLIPSDOB:1960 (63 yo M)Acc No.[id number]:02/04/2024 Patient:?NATHALIE PHILLIPS :1960???Age:63 Y???Sex:Male Address:[address] [facility], [facility] [place], [address] * true * Date:? Generated for Vaughni fei/Carmel/eTransmitting on:?08/01/2024 02:24 PM EDT
--- OUTSIDE RECORDS SUMMARY | 2024-08-01 14:25 | XMS_ITS | Clinical Summary ---
Author Organization [facility] Address [address] [place] [address] Care Team Providers Care Automotive Collision Estimator Name Role Phone Robert Smith MD Primary Care Provider [phone] Social History Tobacco Use Types Packs/Day Years Used Date Smoking Tobacco: Never Assessed Sex and Gender Information Value Date Recorded Sex Assigned at Not on file Legal Sex Male 2:56 AM EST Gender Identity Not on file Sexual Orientation Not on file Plan of Treatment Health Maintenance Due Date Last Done Comments DTaP,Tdap,and Td Vaccines (1 - Tdap) 1980 Pneumococcal Vaccine: 50+ Ye ars (1 of 1 - PCV) 10/21/2011 Zoster Vaccines (1 of 2) 10/21/2011 Cholesterol Screening (Lipid Panel) 04/22/2023 Colorectal Cancer Screening: Colonoscopy 04/22/2023 Depression Screening 04/22/2023 HIV Screening 04/22/2023 Hepatitis C Screening 04/22/2023 Social Influencers of Health Screening 04/22/2023 COVID-19 Vaccine ( - 2023-2 5 season) 2023 Influenza Vaccine (Season Ended) 2024 RSV Immunization Adult Patie nts (1 - 1-dose 75+ series) 2036 HIB Vaccines Aged Out No longer eligi ble based on patient's age to complete this topic HPV Vaccines Aged Out No longer eligi ble based on patient's age to complete this topic Hepatitis A Vaccines Aged Out No long er eligible based on patient's age to complete this topic Hepatitis B Vaccines Aged Out No long er eligible based on patient's age to complete this topic IPV Vaccines Aged Out No longer eligi ble based on patient's age to complete this topic MMR Vaccines Aged Out No longer eligi ble based on patient's age to complete this topic Meningococcal ACWY Vaccine Aged Out N o longer eligible based on patient's age to complete this topic Meningococcal B Vaccine Aged Out No l onger eligible based on patient's age to complete this topic Pneumococcal Vaccine: Pediat rics (0 to 5 Years) and At-Risk Patients (6 to 64 Years) Aged Out No longer eligible b ased on patient's age to complete this topic RSV Immunization Patients Un valencia 20 months Aged Out No longer eligible b ased on patient's age to complete this topic Varicella Vaccines Aged Out No longer eligible based on patient's age to complete this topic Care Teams Automotive Collision Estimator Relationship Specialty Start Date End Date Robert Smith MD [address] [place] [address] Dr Laverne [place] PCP - General 05/07/22
--- OUTSIDE RECORDS SUMMARY | 2024-08-01 14:25 | XMS_ITS | Patient Health Record ---
Author Organization [facility] Address [address] [place] [address] Care Team Providers Care Post Graduate Internship Name Role Phone [facility] Unavailable [phone] CHELLY MANTILLA Unavailable [phone] Allergies No Known Allergies Reason For Referral No Information Medications Medication SIG (Take, Route, Frequency, Duration) Notes Start Date End Date Status Medrol 4 MG as directed Orally O nce a day for 6 days 05/10/2023 Active Cephalexin 500 MG 1 capsule Orally francisco ry 6 hrs for 7 days 08/14/2023 Active Cephalexin 500 MG Oral for 30 Days Active Cefpodoxime Proxetil 200 MG Oral for 10 Days Active Fluticasone Propionate 50 MCG/ACT SPRAY 1 SPRAY INTO EACH NOSTRIL TWO TIMES A DAY IF NEEDED Nasal for 30 Days Active Clindamycin HCl 300 MG Oral for 5 Days Active Ibuprofen 800 MG Oral for 5 Days Active Amoxicillin-Pot Clavulanate 875-125 MG Oral for 7 Days Active Chlorhexidine Gluconate 0.12 % Mouth/Throat for 15 Days Act carter Social History Tobacco Use: Social History Observation Description Date Details (start date - stop date) Current Smoker NA - NA Tobacco Use/Smoking Question Answer Notes Are you a current smoker Tobacco Control (Standard) Question Answer Notes Tobacco use: Current smoker Vital Signs Height 72 in 08/14/2023 Patient Reported Normal Blood Presure Patient Reported Normal Temperature Weight 225 lbs 08/14/2023 Patient Reported Normal Blood Presure Patient Reported Normal Temperature BMI 30.51 kg/m2 08/14/2023 Patient Reported Normal Blood Presure Patient Reported Normal Temperature Encounters Encounter Location Date Provider Diagnosis [facility] [address] [place] [address] 08/14/2023 CHELLY MANTILLA Skin infection L08.9 Assessments Encounter Date Diagnosis (ICD Code) Assessment Notes Treatment Notes Treatment Clinical Notes Section Notes 08/14/2023 Skin infection (ICD-10 - L08.9) 11/28/2023 Other Follow the treatment plan as [...] or call 911 immediately for further evaluation. 08/14/2023 Other Follow the treatment plan as [...] immediately for further evaluation. Plan Of Treatment No Information Insurance Providers Payer Name Payer Address Payer Phone Subscriber Number Group Number Insured Name Patient Relationship to Insured Coverage Start Date Coverage End Date [facility] Self Pay [address] [phone] [id number] Román Ruggiero Self - patient is the insured Medical (General) History Medical History History ICD Code denies
--- OUTSIDE RECORDS SUMMARY | 2024-08-01 14:25 | XMS_ITS | Patient Health Record ---
Author Organization [facility] Address [address] [place] [address] Care Team Providers Care [place] Boatman Name Role Phone Robert Garcia MD Primary Care Provider Paul Curry Jr Unavailable [phone] Allergies Allergen (clinical drug ingredient) Drug/Non Drug Allergy documented on EMR Reaction Allergy Type Onset Date Status ciprofloxacin Cipro Unknown Drug Allergy Act carter red shelll fish (uncoded) Unknown Allergy Active Results Component Value Reference Range Notes Pathology Reviewed date:02/04/2024 09:12:40 AM Interpretation: Performing Lab:[facility], [address] [place] [address] Notes/Report: Name: Román Ruggiero Age/Sex: 63/M : 1960 Unit#: [id number] Attend Dr: Paul Jones MD Re01/27/24 Status : [facility] Location: [facility] [place] Disch: SPEC : [id number] RECD : 01/28/24 STATUS: FERNANDO REYES NUM: [id number] INDU: 01/27/24-1415 [facility] DR: Paul Jones MD ENTERED: 01/28/24 SP TYPE: Surgical OTHR DR: Robert Garcia MD ORDERED: HE Stain/9, Gross Micro L4/3 Diagnosis A. Colon, 90 cm, lázaro ypectomy: Fragments of tubular adenoma; negative for high-grade dysplasia or carcinoma. B. Colon, 60 cm, lázaro ypectomy: Colonic mucosa with mild surface hyperplastic changes. C. Colon, 20 cm, lázaro ypectomy: Hyperplastic mucosal polyp. Clinical History Pre-Op Dx: Encounter for screening for malignant neoplasm of colon Post-Op Dx: Colon polyps Microscopic Description A-C. Microscopic sec tions reviewed. Material Received A. Polyp at 90 B. Polyp at 60 C. Polyp at 20 Gross Description Received in three parts. Part A: Received in formalin labeled ?polyp at 90? are 2 camara irregular and rectangular tissue fragments cynthia suring 0.2 and 0.35 cm, submitted in toto in a cassette labeled A. Part B: Received in formalin labeled ?polyp at 60? are 2 thin and delicate camara irregular tissue fragments cynthia suring 0.2 and 0.25 cm, submitted in toto in a cassette labeled B. Part C: Received in formalin labeled ?polyp at 20? are 6 camara irregular and rectangular tissue fragments ran ging from 0.1-0.45 cm, submitted in toto in a cassette labeled C. CEDS CONTINUED ON NEXT PAGE Name: Román Ruggiero Age/Sex: 63/M : 1960 Unit#: [id number] Attend Dr: Paul Jones MD Re01/27/24 Status : [facility] Location: [place] Disch: SPEC : [id number] RECD : 01/28/24 STATUS: FERNANDO REYES NUM: [id number] INDU: 01/27/24 [facility] DR: Paul Jones MD ENTERED: 01/28/24 SP TYPE: Surgical OTHR DR: Robert Garcia MD ORDERED: ALFREDO Stain/9, Gross Gaudencio L4/3 Copies To: Paul Jones MD [facility] [address] [place] [address] Robert Garcia MD [facility] [address] [place] [address] Signed (si gnature on file) Severino Ferrera MD 02/01/24 0819 END OF REPORT Reason For Referral Referring Provider First Name Robert Referring Provider Last Name Luis Referring Provider Speciality Internal M edicine Referred Organization [facility] Referred Provider Paul Jones Jr Referred Address [address] [place] [address],[place] [address],[place],[address],[place] Referred Provider Specialty Gastroentero logy General Notes Hannah Montoya 024 03:37:48 PM EDT > requested an [facility] ref from dr ray office for visit with Dr. Jones on 12-10-2023, Hannah Montoya 11/02/2023 03:06:30 PM EDT > requested referral from dr garcia's office again SPOKE WITH Milvia Referral Priority Routine Medications Medication SIG (Take, Route, Frequency, Duration) Notes Start Date End Date Status Amoxicillin-Pot Clavulanate 875-125 MG Oral for 7 Active Social History Tobacco Use: Social History Observation Description Date Details (start date - stop date) Current Smoker NA - NA Tobacco Use/Smoking Question Answer Notes Patient is a current smoker How often do you smoke cigarettes? every day How many cigarettes a day do you smoke? 11-20 Alcohol Screen Question Answer Notes Did you have a drink contain ing alcohol in the past year? Yes How often did you have a dri nk containing alcohol in the past year? Never (0 point) How many drinks did you have on a typical day when you were drinking in the past year? 1 or 2 drinks (0 point) How often did you have 6 or more drinks on one occasion in the past year? Never (0 point) Points 0 Interpretation Negative Section Notes: very occasional drink Problems Problem Type SNOMED Code ICD Code Onset Dates Problem Status W/U Status Risk Notes Problem 147633920 Colon cancer screening (Z12.11) Active confirmed Problem 526177050 Abdominal bloating (R14.0) Active confirmed Problem 91435652 Hemorrhoids, unspecified hemorrhoid type (K64.9) Active confirmed Vital Signs Blood pressure diastolic 00 mm Hg 12/10/2023 Height 6 ft in 12/10/2023 Blood pressure systolic 00 mm Hg 12/10/2023 Weight 223 lbs 12/10/2023 BMI 30.24 kg/m2 12/10/2023 Encounters Encounter Location Date Provider Diagnosis [facility] Outpatient [address] [place], [place] [id number] 01/27/2024 Paul Jones Jr Colon cancer screening Z12.11 and Colon polyps K63.5 [facility] [address] [place] [address] 12/10/2023 Pauljeanine Jones Jr Colon cancer screening Z12.11 ; Abdominal bloating R14.0 and Hemorrhoids, unspecified hemorrhoid type K64.9 [facility] [address] [place] [address] 01/11/2024 Paul Jones Jr [facility] [address] [place] [phone] 02/04/2024 Paul Jones Jr Assessments Encounter Date Diagnosis (ICD Code) Assessment Notes Treatment Notes Treatment Clinical Notes Section Notes 01/27/2024 Colon cancer screening (ICD-10 - Z12.11) 01/27/2024 Colon polyps (ICD-10 - K63.5) 12/10/2023 Colon cancer screening (ICD-10 - Z12.11) Colonoscopy material was printed We discussed abdominal bloating today. We discussed diet, lifestyle modifications, and weight management. We recommended use csmq-leh-rhgveba anti-gas medications. We discussed the care treatment of hemorrhoids today. He can use kwud-dbv-tctqldg hydrocortisone cream as needed for this. He is due for colon cancer screening. This will be arranged. He understands risks and benefits and agrees to proceed. 12/10/2023 Abdominal bloating (ICD-10 - R14.0) We discussed abdominal bloating today. We discussed diet, lifestyle modifications, and weight management. We recommended use odbs-ofp-tudqavg anti-gas medications. We discussed the care treatment of hemorrhoids today. He can use egtc-obc-lfxwwgt hydrocortisone cream as needed for this. He is due for colon cancer screening. This will be arranged. He understands risks and benefits and agrees to proceed. 12/10/2023 Hemorrhoids, unspecified hemorrhoid type (ICD-10 - K64.9) We discussed abdominal bloating today. We discussed diet, lifestyle modifications, and weight management. We recommended use jyvw-xoa-nxfbqya anti-gas medications. We discussed the care treatment of hemorrhoids today. He can use fnex-apk-axhxzgi hydrocortisone cream as needed for this. He is due for colon cancer screening. This will be arranged. He understands risks and benefits and agrees to proceed. Plan Of Treatment Future Test Test Name Order Date COLONOSCOPY 12/10/2023 Insurance Providers Payer Name Payer Address Payer Phone Subscriber Number Group Number Insured Name Patient Relationship to Insured Coverage Start Date Coverage End Date [facility] [employer] [address] [place] [address] [id number] JACQUELINEROMÁN Self - patient is the insured Medical (General) History Medical History History ICD Code Hyperlipidemia Gastroesophageal reflux disease, EGD 10/21 2, negative for H. pylori. Colonoscopy 11/01. Hyperplastic polyps x2 . Surgical History Surgery Date(Month/Year) dental implant surgery 2018
--- OUTSIDE RECORDS SUMMARY | 2024-08-01 14:25 | XMS_ITS | Clinical Summary ---
Author Organization [facility] Address [address] [place] [address] Care Team Providers Care Degree Clerk Name Role Phone Ash Smith MD Primary Care Provider [phone] Social History Tobacco Use Types Packs/Day Years Used Date Smoking Tobacco: Never Assessed Sex and Gender Information Value Date Recorded Sex Assigned at Not on file Legal Sex Male 5:25 AM EST Gender Identity Not on file Sexual Orientation Not on file Last Filed Vital Signs Vital Sign Reading Time Taken Comments Blood Pressure - - Pulse - - Temperature - - Respiratory Rate - - Oxygen Saturation - - Inhaled Oxygen Concentration - - Weight 107 kg (235 lb) 09/14/2017 10:21 AM EDT Height 182.9 cm (6') 09/14/2017 10:21 AM EDT Body Mass Index 31.87 09/14/2017 10:21 AM EDT Plan of Treatment Health Maintenance Due Date Last Done Comments CT Colonography 1960 Colonoscopy 1960 Colorectal Cancer Screening 1960 FIT-DNA (Cologuard) 1960 FIT 1960 FOBT 1960 Flex Sigmoidoscopy - 5y 1960 HIV Screening 1960 DTaP,Tdap,and Td Vaccines (1 - Tdap) 10/21/1979 Pneumococcal Vaccine, 50+ Ye ars (1 of 1 - PCV) 10/21/2011 Zoster Vaccines (1 of 2) 10/21/2011 COVID-19 Vaccine ( - 2023-2 5 season) 2023 Influenza Vaccine (Season Ended) 2024 HPV Vaccines Aged Out No longer eligi ble based on patient's age to complete this topic Hepatitis A Vaccines Aged Out No long er eligible based on patient's age to complete this topic MMR Vaccines Aged Out No longer eligi ble based on patient's age to complete this topic Meningococcal Vaccine Aged Out No vanesa ernie eligible based on patient's age to complete this topic Insurance ANTHEM - OUT OF STATE Care Teams Degree Clerk Relationship Specialty Start Date End Date Ash Smith MD [address] [place] [phone] PCP - General 08/27/17
--- OUTSIDE RECORDS SUMMARY | 2024-08-01 14:25 | XMS_ITS ---
Author Organization [facility] Address [address] [place] [address] Care Team Providers Care Barrel Header Name Role Phone [facility] Unavailable [phone] Allergies No Known Allergies REASON FOR VISIT Prescription Refill, Patient requesting service from promotional campaign pmax_rx_ftrx_top_meds Medications Medication SIG (Take, Route, Frequency, Duration) Notes Start Date End Date Status Cephalexin 500 MG 1 capsule Orally francisco ry 6 hrs for 7 days 08/14/2023 Active Clindamycin HCl 300 MG Oral for 5 Days Active Ibuprofen 800 MG Oral for 5 Days Active Amoxicillin-Pot Clavulanate 875-125 MG Oral for 7 Days Active Chlorhexidine Gluconate 0.12 % Mouth/Throat for 15 Days Act carter Medrol 4 MG as directed Orally O nce a day for 6 days 05/10/2023 Active Cefpodoxime Proxetil 200 MG Oral for 10 Days Active Fluticasone Propionate 50 MCG/ACT SPRAY 1 SPRAY INTO EACH NOSTRIL TWO TIMES A DAY IF NEEDED Nasal for 30 Days Active Social History Tobacco Use: [...] Temperature Encounters Encounter Location Date Provider Diagnosis [facility] [address] [place] [address] 11/28/2023 [facility] Assessments Encounter Date [...] with your medicine. You participated in a [facility] Rx request, considered an asynchronous visit where [...] PCP, Reason: Progress Notes * Hermilo RUGGIERO:1960 (63 yo M)Acc No.[id number]:11/28/2023 Patient:?Román RUGGIERO Provider:?[facility] :1960???Age:63 Y???Sex:Male Los e:11/28/2023 Phone: Address:[address], [place]-[address] Subjective: * Chief Complaints: * ???1. Prescription Refill. 2 . Patient requesting service from promotional campaign pmax_rx_ftrx_top_meds. * HPI: ???TeleHealth Complaint History:?Reason for visit: Medication RequestRequested: ? Keflex, 500mg, 10 days Reason: ? Skin infection How Long: ? 6 minths Side Effects: ? Prescriber: ? Dr Gonzalez. Windows Server Support Technician Per pt:??I cant loacte my Keeflex presribed by my dermotologist. Leaving for vacation tommorow. * ROS:?All Other Systems:?Review of Systems (ROS)?See HPI for details.? * Medical History:?Denies. * Surgical History:?Denies Pas t Surgical History. * Hospitalization/Major Diagno stic Procedure:?Denies Past Hospitalization. * Family History:? denies. * Social History:?Tobacco Use:?Tobacco Use/Smoking?Are you a?current smoker ?Tobacco Control (Standard)?Tobacco use:?Current smoker ???Drugs/Alcohol:?Do you drink alcohol?: No. * Medications:?Taking Amoxicil kristie-Pot Clavulanate 875-125 MG Tablet Oral , Taking [...] Taking Ibuprofen 800 MG Tablet Oral * Allergies:?N.K.D.A. Objective: * Vitals:?Ht: 72 in, Wt:225lbs , BMI:30.51Index. Patient Reported Normal Blood Presure Patient Reported Normal Temperature. * Physical Examination:?Asynchronous visit, unable to assess. Assessment: Plan: * Treatment: * Follow Up:?PCP * Billing Information: * Visit Code:? * Procedure Codes:? * Electronic signature of [facility] on 08/01/2024 at 02:24 PM EDT Sign off status: Pending * Provider:?[facility] Date:?0 11/28/2023 Generated for eRgla enamorado/Carmel/Aylinitting on:?08/01/2024 02:24 PM EDT History and Physical Notes * Physical Examination Category Sub-Category Detail Notes Section Note s Asynchronous vi sit, unable to assess
== END 2024-08-01 14:48 | disposition home or self-care (01) ==
LOC: HO.HMCHD 14:10
PROVIDERS: PCP Internal Medicine; Visit Provider Internal Medicine
DX: E78.5 Hyperlipidemia, unspecified (principal); R00.2 Palpitations; K11.20 Sialoadenitis, unspecified; M75.00 Adhesive capsulitis of unspecified shoulder

== ENCOUNTER → 2024-08-01 14:10 | Outpatient (BNVA) | payer BC, SELFPAY | PROVIDERS: PCP Internal Medicine; Visit Provider Internal Medicine | DX: Z13.89 Encounter for screening for other disorder (principal) ==

== ENCOUNTER 2024-10-12 14:32 | Outpatient (AMB) | payer BC, SELFPAY ==
--- OUTSIDE RECORDS SUMMARY | 2015-08-13 | XMS_ITS | Encounter Summary ---
Author Organization [facility] Address [address] [facility] [address] [place] [address] Phone Care Team Providers Care Bed Setter Name Role Phone Robert Smith MD Primary Care Provider Reason for Visit * MRI/CAT Scan - Closed Specialty Diagnoses / Procedures Referred By George t Referred To Contact Radiology Procedures CT Head Outside With Interpretation or Consult Luis A Muhammad DMD, MD [address] [place] [address] Phone: tel: fax: mailto:[email or web address] Referral ID Status Reason Start Date Expiration Date Visits Re quested Visits Authorized [id number] Closed 10/09/2015 10/08/2016 1 1 Encounter Details Date Type Department Care Team ([facility] st Contact Info) Description 08/13/2015 Hospital Encounter [facility] [address] [place] [address] Luis A Muhammad DMD, MD [address] [place] [address] [email or web address] Social History Tobacco Use Types Packs/Day Years Used Date Smoking Tobacco: Every Day Cigarettes 0.3 33.5 Started: 04/08/1991 Smokeless Tobacco: Never Alcohol Use [...] EDT) 11/02/2015 11:0 8 AM EDT Narrative [facility] [place] - 11/02/2015 11:16 AM EDT TECHNIQUE: Outside images of the CT HEAD This outside examination can not be read because: The imaging is absent or inadequate. Procedure Note Drum Saw Operator, Dictation - 11/02/2015 TECHNIQUE: Outside images of the CT HEAD This outside examination can not be read because: The imaging is absent or inadequate. us Luis A Muhammad DMD, MD IMG OUTSIDE IMAGING W/ INTERPRETATION Final Result [facility] [address] [facility] [place] [address] documented in this encounter Visit Diagnoses Not on filedocumented in this encounter Care Teams Bed Setter Relationship Specialty Start Date End Date Robert Smith MD [address] [place] [address] [place] [address] PCP - General Internal Medicine 2/8/16 documented as of this encounter Additional Source Comments The information contained in this document represents components of the legal health record. It is not the complete legal health record.[facility]
--- OUTSIDE RECORDS SUMMARY | 2023-08-21 08:30 | XMS_ITS ---
Author Organization [facility] Address [address] [place] [address] Care Team Providers Care Cleaning Associate Name Role Phone [facility], [facility] [phone] REASON FOR VISIT f/up skin infection Encounters Encounter Location Date Provider Diagnosis [facility] [address] [place] [address] 08/21/2023 [facility] Plan Of Treatment No Information Progress Notes * Román RUGGIERODOB:1960 (63 yo M)Acc No.[id number]:08/21/2023 Progress Notes Patient: Román RASHID Provider: Sharmila AGUAYO [place] :1960 A ge:62 Y S ex:Male Date:08/21/2023 Phone: Address:[address], [place] Subjective: * Chief Complaints: * 1 . F/up skin infection. * Medical History: Objective: * Vitals: Assessment: Plan: * Treatment: * Billing Information: * Visit Code: * Procedure Codes: * Electronic signature of [facility] on 10/12/2024 at 03:05 PM EDT Sign off status: Pending * Provider: Sharmila AGUAYO [place] Date: 08/21/2023 Generated for Regla enamorado/Carmel/eTkostasmitting on: 10/12/2024 03:05 PM EDT
--- OUTSIDE RECORDS SUMMARY | 2024-01-12 06:00 | XMS_ITS ---
Author Organization [facility] Address [address] [place] [address] Care Team Providers Care Optical Goods Drill Operator Name Role Phone Luis (RETIRED) Robert CARROLL Primary Care Provide r Paul Doe Jr REASON FOR VISIT screening Encounters Encounter Location Date Provider Diagnosis [facility] Out[facility] [address] [place], [place] [phone] 01/12/2024 Paul Jones Jr Plan Of Treatment No Information Progress Notes * NATHALIE PHILLIPSDOB:1960 (63 yo M)Acc No.[id number]:01/12/2024 COLON WITH MAC Patient: NATHALIE RASHID Provider: Teo Jones MD :1960 A ge:63 Y S ex:Male Date:01/12/2024 Address:[address] [place], [place] [phone] Pcp:Robert Smith (RETIRED )MD Subjective: * Chief [...] 1 Generated for Printi ng/Faxing/eTransmitting on: 0 10/12/2024 03:06 PM EDT
[2024-10-12 13:46] VITALS: BP 130/76; PULSE 64; TEMP 36.6; O2SAT 98; BMI 30.4
--- NOTE | 2024-10-12 13:46 | MHC.PC.OV ---
Vital Signs 10/12/24 13:46 Height 6 ft Weight 224 lb BMI 30.4 BP 130/76 Blood Pressure Location Lt brachial Position Sitting Pulse 64 Pulse Source Pulse Oximeter Temp 98 F Temp Source Axillary Pulse Oximetry (%) 98 Oxygen Delivery Method Room Air Intake Visit Reasons: rx follow up Dispensing Optician Apprentice Required: No Accompanied by: Self / Same As Patient Allergies shellfish derived Allergy (Severe, Verified 10/12/24 13:46) ANAPHYLAXIS ciprofloxacin (CIPROFLOXACIN) Allergy (Intermediate, Verified 10/12/24 13:46) FLU LIKE SYMPTOMS Tobacco use date assessed: 10/12/24 Dental Screening Dental Screen Date: 10/12/24 Did you have a dental visit in the last 12 months?: Yes Did you have a dental problem in the last 6 months where you did not have access to dental care?: No PFSH Medical History Frozen shoulder syndrome Chronic infection GERD (gastroesophageal reflux disease) Hyperlipidemia Surgical History History of dental surgery History of esophagogastroduodenoscopy (EGD) H/O colonoscopy (~01/27/24) History of mandibular surgery Family History Mother Cancer of unknown origin Father Cancer of unknown origin Social History Household Members: Spouse Housing: House Alcohol intake: current Alcohol intake frequency: does not drink Patient Tobacco Use Status: Current everyday Tobacco user Tobacco use type: Cigarette Cigarette Packs Per Day: 1 Cigarettes Per Day: 20.0 e-Cigarette/Vaping Use: Currently Using service: No Current occupational status: employed Cognitive needs: No Hearing needs: No Vision needs: Yes (rx glasses) Questionnaire PHQ-9 Over the last 2 weeks, how often have you been bothered by any of the following problems? 1. Little interest or pleasure in doing things: not at all 2. Feeling down, depressed, or hopeless: not at all 3. Trouble falling or staying asleep, or sleeping too much: not at all 4. Feeling tired or having little energy: not at all 5. Poor appetite or overeating: not at all 6. Feeling bad about yourself - or that you are a failure or have let yourself or your family down: not at all 7. Trouble concentrating on things, such as reading the newspaper or watching television: not at all 8. Moving or speaking so slowly that other people could have noticed. Or the opposite - being so fidgety or restless that you have been moving around a lot more than usual: not at all 9. Thoughts that you would be better off or of hurting yourself in some way: not at all Total score: 0 Source: Developed by Drs. Luis A Bronson, Caryn Rogers, Kevin Do and colleagues, with an educational edison from [employer] Thrive Questionnaire Date Thrive assessed: 10/12/24 I am a: Patient Within the past 12 months, did the food you bought not last and you didn't have the money to get more?: Never true Within the past 12 months, did you worry whether your food would run out before you got money to buy more?: Never true Do you have trouble paying for medicines?: No Do you have trouble getting transportation to medical appointments?: No Do you have trouble paying your heating and electricity bill?: No Do you have trouble taking care of your child, family member or friend?: No Do you have trouble with day-to-day activities such as bathing, preparing meals, shopping, managing finances, etc.?: No Are you currently unemployed and looking for a job?: No Are you interested in more education?: No THRIVE Score: 0 AUDIT C Alcohol Use Questionnaire (AUDIT-C) 1. How often do you have a drink containing alcohol?: Never 3. How often do you have six or more drinks on one occasion?: Never Total Score: 0 PARISH-7 AMB Questionnaire PARISH-7 Date PARISH - 7 assessed: 10/12/24 Feeling nervous, anxious, or on edge: 0 = Not at all Not being able to stop or control worryin = Not at all Worrying too much about different things: 0 = Not at all Trouble relaxin = Not at all Being so restless that it is hard to sit still: 0 = Not at all Becoming easily annoyed or irritable: 0 = Not at all Feeling afraid as if something awful might happen: 0 = Not at all Total PARISH-7 score (0-4 normal; 5-9 mild; 10-14 moderate; 15-21 severe): 0 Source: Developed by Drs. Luis A Bronson, Caryn Rogers, Kevin Do and colleagues, with an educational edison from [employer] Physical exam (Primary Care) Vital Signs: Last Vital Signs Temp 98 F 10/12/24 13:46 Pulse 64 10/12/24 13:46 BP 130/76 10/12/24 13:46 Pulse Ox 98 10/12/24 13:46 Oxygen Delivery Method Room Air 10/12/24 13:46 BMI result Body Mass Index 30.4 Tobacco/Smoking Status: Tobacco use Status Tobacco use date assessed 10/12/24 10/12/24 13:47 Patient Tobacco Use Status Current everyday Tobacco 10/12/24 13:47 Tobacco use type Cigarette 10/12/24 13:47 e-Cigarette/Vaping Use Currently Using 10/12/24 13:47 PHQ-9: PHQ-9 Score PHQ-9: Total score 0 10/12/24 14:41 Thrive Assessment: Date of Thrive Assessment Date Thrive assessed 10/12/24 10/12/24 13:47 Coding Level of Care Code Est Pt Level 4 (99781) Complex EM visit Add On G2211 Diagnoses Frozen shoulder syndrome M75.00 Assessment & Plan Assessment & Plan (1) Frozen shoulder syndrome: Code(s): M75.00 - Adhesive capsulitis of unspecified shoulder Category: Medical Plan: History of Present Illness - The patient is a 63-year-old male presenting with chronic sialadenitis. - Reports chronic inflammation of the salivary gland under the tongue on the left side, treated intermittently with antibiotics. - Imaging studies previously performed did not reveal any concerning findings. - Referred to an ENT specialist, but the appointment was canceled and needs rescheduling. - Reports shoulder pain, occasionally taking Meloxicam, but has not pursued further imaging or treatment. - Experiences chest congestion for the past two weeks, unrelieved by Augmentin. - Reports sleep disturbances characterized by vivid dreams, possibly related to stress. Social History - Employment: The patient travels frequently for work, which impacts his ability to attend medical appointments. Review of Systems - Oral: Reports chronic inflammation and discharge from the salivary gland. - Musculoskeletal: Reports shoulder pain, denies recent imaging. - Respiratory: Reports chest congestion for two weeks, denies relief with antibiotics. - Neurological: Reports sleep disturbances with vivid dreams, denies depression. Physical Exam General: Cooperative and healthy appearing Nutritional Appearance: Well nourished Orientation/consciousness: Patient oriented x3 Limitations: No limitations Head: Normal to inspection General: Appearance normal, both eyes and all related structures Neck: Normal visual inspection Chest: Normal palpation of entire chest wall Respiratory: Chest congestion noted for the last two weeks. ormal respiratory effort Neurology: Patient oriented x3, reports vivid dreams and waking up in the middle of the night. Results - Imaging: Previous imaging of the neck showed no concerning findings. Plan 1. Chronic Sialadenitis - Continue monitoring symptoms and avoid unnecessary antibiotic use. - Await ENT consultation for further evaluation and management. 2. Shoulder Pain - Consider imaging if symptoms persist or worsen. - Continue Meloxicam as needed for pain management. 3. Chest Congestion - Recommend chest X-ray to evaluate persistent symptoms. 4. Sleep Disturbances With Vivid Dreams - Monitor symptoms and consider stress management strategies. Discussion Notes During the visit, we discussed the ongoing management of chronic sialadenitis, emphasizing the importance of avoiding unnecessary antibiotic use and awaiting the ENT consultation for further evaluation. We also addressed the patient's shoulder pain, recommending continued use of Meloxicam and considering imaging if symptoms persist. For the chest congestion, a chest X-ray was advised to assess persistent symptoms. We talked about the sleep disturbances, suggesting monitoring and stress management strategies. Follow-up was recommended based on the outcomes of the ENT consultation and chest X-ray. Patient Instructions - Avoid unnecessary use of antibiotics and await ENT consultation. - Use Meloxicam as needed for shoulder pain. - Schedule and complete a chest X-ray to evaluate chest congestion. - Monitor sleep patterns and consider stress management techniques. Orders: Orders XR chest 2V Today R05.9 - Cough, unspecified
--- OUTSIDE RECORDS SUMMARY | 2024-10-12 15:06 | XMS_ITS | Clinical Summary ---
Author Organization [facility] Address [address] [place] [address] Care Team Providers Care Environmental Advisor Name Role Phone Ash Smith MD Primary Care Provider [phone] Social History Tobacco Use Types Packs/Day Years [...] - 2023-2 5 season) 2023 Influenza Vaccine (#1) 2024 HPV Vaccines Aged Out No longer [...] ANTHEM - OUT OF STATE Care Teams Environmental Advisor Relationship Specialty Start Date End Date Ash Smith MD [address] [place] [address] PCP - General 08/27/17
--- OUTSIDE RECORDS SUMMARY | 2024-10-12 15:06 | XMS_ITS | Data Portability ---
Author Organization [place] - [facility], [facility] Address [address] [address] Assessment Encounter Date Assessment Date Assessment LastModified by Organization Details LastModified Time 07/14/2024 07/14/2024 Assessment - Recurrent left-sided salivary gland infection with current flare-up. Plan - Prescribe Bactrim DS twice daily for 10 days to manage the recurrent salivary gland infection. - Provide a referral to a singe winder and MD ENT for further evaluation and management of the recurrent salivary gland infection. - Give discharge instructions for managing salivary gland infections and cellulitis. Prescription - Bactrim DS, twice a day for 10 days Appointments - Referral to a singe winder - Referral to an ENT specialist at [facility] Type of service Chat Originating Location Home Distant Location Offsite Platform used Hobby 15 minutes total time spent by me on the date of service doing chart review, history, exam, documentation and further activities per the note. Thepatient'spres entation was of low complexity an acute uncomplicated illness or injury Thepatient'seval uation involved review of prior external notes from outpatient clinical notes Thepatient'smana gement necessitated low risk of morbidity from additional diagnostic testing or treatment. Thepatient'seval uation did not include a consultation Not available 07/14/2024 19:52:25 08/17/2024 08/17/2024 Refill of bactrim for salivary infection. Counseled on need to follow up with ENT. If unable to get appointment, patient directed to the emergency department. [email or web address] Not available 08/17/2024 10:36:01 Plan of Treatment Reminders Order Date Submit Date Provider Last Modified By Organization Details Last Modified Time Details Appointments None recorde d. Lab None recorde d. Referral ENT surgery referra l 2024 025 [email or web address], [address], [address], [place], [address], 20:31:53 Procedures None recorde d. Surgeries None recorde d. Imaging None recorde d. Medication Orders Bactrim DS 800 mg-160 mg tablet 2024 025 [facility], [address] [place], [address], 10:36:58 Bactrim DS 800 mg-160 mg tablet 2024 025 [email or web address], [address] [place], [address], 20:52:09 Patient TargetsNo targets recorded. Patient Instructions Encounter Date Encounter Id Patient Instructions Last Modified By Organization Details Last Modified Time 07/14/2024 [id number] Based on our discussion, I have outlined the following instructions for you: - Take Bactrim DS two times a day for 10 days to help with your salivary gland infection. - Follow the instructions provided to you for taking care of salivary gland infections and cellulitis. Next appointment(s): - Referral to a singe winder - Referral to an ENT specialist at [facility] ENT Thank you again for your [...] for immediate assistance. Not available 07/14/2024 19:54:11 08/17/2024 [id number] Take the medication as prescribed. If you are unable to get prompt ENT follow up, or you symptoms are getting worse, you should go the emergency department immediately. for evaluation. [email or web address] Not available 08/17/2024 10:36:42 Reason for Referral ENT Surgery Referral for [...] TAKE ONE TABLET BY MOUTH EVERY DAY AT BEDTIME active Not Available Not Available No t Available cefpodoxime 200 mg tablet TAKE 1 TABLET BY MOUTH EVERY 12 HOURS WITH FOOD active Not Available Not Available No t Available ibuprofen 800 mg tablet TAKE 1 TABLET (800MG) BY MOUTH EVERY 12 HOURS WITH FOOD OR MILK NEEDED FOR 5 DAYS. active Not Available Not Available No t Available meloxicam 15 mg tablet TAKE ONE TABLET BY MOUTH EVERY DAY active Not Available Not Available No t Available metronidazole 500 mg tablet TAKE 1 TABLET BY MOUTH EVERY 8 HOURS active Not Available Not Available No t Available amlodipine 5 mg tablet TAKE ONE TABLET BY MOUTH EVERY DAY active Not Available Not Available No t Available sulfamethoxazol e 800 mg-trimethoprim 160 mg tablet TAKE ONE TABLET BY MOUTH EVERY 12 HOURS FOR 10 DAYS active Not Available Not Available No t Available cephalexin 500 mg capsule TAKE ONE CAPSULE BY MOUTH TWICE A DAY active Not Available Not Available No t Available diclofenac potassium 50 mg tablet TAKE 1 TABLET BY MOUTH EVERY 8 HOURS NEEDED active Not Available Not Available No [...] SNOMED-CT Code Diagnosis ICD10 Code Diagnosis Note [id number] PHIL KU DO [address] [place] [address] 07/14/2024 19:32:28 07/19/2024 12:30:14 Neck pain [id number] M54.2 Hypertroph y of salivary gland [id number] K11.1 [id number] LALO HEREDIA MD [place] [address] [place] [address] 08/17/2024 10:35:03 08/17/2024 10:37:02 Repeated prescription [id number] Z76.0 Health Concerns Section Related Observation LastModified by Organization Detai ls LastModified Time None Recorded Concern Status LastModified by Organization Details LastModified Time None Recorded Advance Directives Directive None Recorded Payers Insurance Date Sequence Insurance Name Policy Number Policy Polanco Covered Member ID Polanco Member ID Guarantor Name 08/17/2024 1 [place] [facility] [place] [id number] Román Ruggiero [id number] Román Ruggiero Notes Date Note Type [...] past without success. PHIL KU DO [address] [facility],[address], [place], [address], [facility] 07/14/2024 19:54:41
--- OUTSIDE RECORDS SUMMARY | 2024-10-12 15:06 | XMS_ITS | Clinical Summary ---
Author Organization [facility] Address [address] [place] [address] Care Team Providers Care Group Exercise Manager Name Role Phone Robert Smith MD Primary Care Provider [phone] Social History Tobacco Use Types Packs/Day Years [...] Panel) 04/22/2023 Colorectal Cancer Screening: Colonoscopy 04/22/2023 HIV Screening 04/22/2023 Hepatitis C Screening 04/22/2023 Social Influencers of Health Screening 04/22/2023 COVID-19 Vaccine ( - 2023-2 5 season) 2023 Depression Screening 03/23/2024 Influenza Vaccine (#1) 2024 RSV Immunization Adult Patie nts (1 [...] age to complete this topic Care Teams Group Exercise Manager Relationship Specialty Start Date End Date Robert Smith MD [address] [place] [address] Dr Laverne [place] PCP - General 05/07/22
== END 2024-10-12 15:19 | disposition home or self-care (01) ==
LOC: HO.HMCHD 14:33
PROVIDERS: PCP Internal Medicine; Visit Provider Internal Medicine
DX: M75.00 Adhesive capsulitis of unspecified shoulder (principal)

== ENCOUNTER 2024-10-12 14:32 | Outpatient (REF) | payer BC, SELFPAY ==
--- NOTE | ~2024-10-12 | XR_ITS ---
EXAMINATION: XR CHEST CLINICAL INFORMATION: R05.9 - Cough, unspecified COMPARISON: 12/07/2015 TECHNIQUE: 2 views of the chest were obtained. FINDINGS: No significant abnormality is noted involving the heart, lungs, mediastinum, bony thorax or soft tissues. XR/XR chest 2V IMPRESSION: No acute disease Electronically signed by: Milton Henderson MD 10/12/2024 03:25 PM EDT RP
== END 2024-10-12 14:33 | disposition home or self-care (01) ==
LOC: HO.XRAY 14:32
PROVIDERS: PCP Internal Medicine; Visit Provider Internal Medicine
DX: R05.9 Cough, unspecified (principal); M75.00 Adhesive capsulitis of unspecified shoulder; F17.200 Nicotine dependence, unspecified, uncomplicated; Z71.6 Tobacco abuse counseling; Z79.899 Other long term (current) drug therapy
CPT/HCPCS: 71046

== ENCOUNTER → 2024-10-12 15:05 | Outpatient (BNV) | payer BC, SELFPAY | PROVIDERS: PCP Internal Medicine; Visit Provider Radiology Diagnostic Radiology | DX: R05.9 Cough, unspecified (principal) | CPT/HCPCS: 71046 ==

== ENCOUNTER 2024-11-15 15:46 | Outpatient (AMB) | payer BC, SELFPAY ==
--- OUTSIDE RECORDS SUMMARY | 2015-08-13 | XMS_ITS | Encounter Summary ---
Author Organization [facility] Address [address] [place] [address] Phone Care Team Providers Care Cms Expert Name Role Phone Robert Smith MD Primary Care Provider Reason for Visit * MRI/CAT Scan - Closed Specialty Diagnoses / Procedures Referred By George t Referred To Contact Radiology Procedures CT Head Outside With Interpretation or Consult Luis A Muhammad DMD, MD [address] [place] [address] Phone: tel: fax: mailto:[email or web address] Referral ID Status Reason Start Date Expiration Date Visits Re quested Visits Authorized [id number] Closed 10/09/2015 10/08/2016 1 1 Encounter Details Date Type Department Care Team ([facility] st Contact Info) Description 08/13/2015 Hospital Encounter [facility] [address] [place] [address] Luis A Muhammad DMD, MD [address] [place] [address] [email or web address] Social History Tobacco Use Types Packs/Day Years Used Date Smoking Tobacco: Every Day Cigarettes 0.3 33.6 Started: 04/08/1991 Smokeless Tobacco: Never Alcohol Use [...] EDT) 11/02/2015 11:0 8 AM EDT Narrative [facility] [place] - 11/02/2015 11:16 AM EDT TECHNIQUE: Outside images of the CT HEAD This outside examination can not be read because: The imaging is absent or inadequate. Procedure Note Business Office Representative, Dictation - 11/02/2015 TECHNIQUE: Outside images of the CT HEAD This outside examination can not be read because: The imaging is absent or inadequate. us Luis A Muhammad DMD, MD IMG OUTSIDE IMAGING W/ INTERPRETATION Final Result [facility] [address] [facility] [address] documented in this encounter Visit Diagnoses Not on filedocumented in this encounter Care Teams Cms Expert Relationship Specialty Start Date End Date Robert Smith MD [address] [place] [address] [place] [address] PCP - General Internal Medicine 2/8/16 documented as of this encounter Additional Source Comments The information contained in this document represents components of the legal health record. It is not the complete legal health record.[facility]
--- OUTSIDE RECORDS SUMMARY | 2015-08-13 00:15 | XMS_ITS | Encounter Summary ---
Author Organization [facility] Address [address] [facility] [address] [place] [address] Phone Care Team Providers Care Manager Customer Service Name Role Phone Robert Smith MD Primary Care Provider Reason for Visit * MRI/CAT Scan - Closed Specialty Diagnoses / Procedures Referred By George t Referred To Contact Radiology Procedures CT Head Outside With Interpretation or Consult Luis A Muhammad DMD, MD [address] [place] [address] Phone: tel: fax: mailto:[email or web address] Referral ID Status Reason Start Date Expiration Date Visits Re quested Visits Authorized [id number] Closed 10/09/2015 10/08/2016 1 1 Encounter Details Date Type Department Care Team ([facility] st Contact Info) Description 08/13/2015 12:15 AM EDT Hospital Encounter [facility] [address] [place] [address] Luis A Muhammad DMD, MD [address] [place] [address] [email or web address] Social History Tobacco Use Types Packs/Day Years [...] AM EDT) 11/01/2015 3:55 PM EDT Narrative [facility] [place] [facility] - 11/02/2015 11:16 AM EDT TECHNIQUE: Outside images of the CT HEAD This outside examination can not be read because: The imaging is absent or inadequate. Procedure Note Central Office Supervisor, Dictation - 11/02/2015 TECHNIQUE: Outside images of the CT HEAD This outside examination can not be read because: The imaging is absent or inadequate. us Luis A Muhammad DMD, MD IMG OUTSIDE IMAGING W/ INTERPRETATION Final Result [facility] [place] [address] [facility] [place] [address] documented in this encounter Visit Diagnoses Not on filedocumented in this encounter Care Teams Manager Customer Service Relationship Specialty Start Date End Date Robert Smith MD [address] [place] [address] [place] [address] PCP - General Internal Medicine 04/30/15 documented as of this encounter Additional Source Comments The information contained in this document represents components of the legal health record. It is not the complete legal health record.[facility]
--- OUTSIDE RECORDS SUMMARY | 2015-08-13 00:30 | XMS_ITS | Encounter Summary ---
Author Organization [facility] Address [address] [place] [address] Phone Care Team Providers Care Field Mechanical Meter Tester Name Role Phone Robert Smith MD Primary Care Provider Reason for Visit * MRI/CAT Scan - Closed Specialty Diagnoses / Procedures Referred By George t Referred To Contact Radiology Procedures CT Head Outside With Interpretation or Consult Hazel Maravilla DDS [address] [place] [address] Phone: tel: fax: mailto:[email or web address] Referral ID Status Reason Start Date Expiration Date Visits Re quested Visits Authorized [id number] Closed 10/09/2015 10/08/2016 1 1 Encounter Details Date Type Department Care Team (Late st Contact Info) Description 08/13/2015 12:30 AM EDT Hospital Encounter [facility] General Imaging [address] [place] [address] Hazel Maravilla DDS [address] [place] [address] [email or web address] Social History Tobacco Use Types Packs/Day Years [...] AM EDT) 11/01/2015 3:56 PM EDT Narrative [facility] [place] [facility] - 11/02/2015 11:07 AM EDT TECHNIQUE: Outside images of the CT HEAD This outside examination can not be read because: The imaging is absent or inadequate. Procedure Note Mirror Maker, Dictation - 11/02/2015 TECHNIQUE: Outside images of the CT HEAD This outside examination can not be read because: The imaging is absent or inadequate. us Hazel Maravilla DDS IMG OUTSIDE IMAGING W/ INTER PRETATION Final Result [facility] [place] [facility] [address] [facility] [place] [address] documented in this encounter Visit Diagnoses Not on filedocumented in this encounter Care Teams Field Mechanical Meter Tester Relationship Specialty Start Date End Date Robert Smith MD [address] [place] [address] Dr Yañez, LADY [address] PCP - General Internal Medicine 04/30/15 documented as of this encounter Additional Source Comments The information contained in this document represents components of the legal health record. It is not the complete legal health record.[facility]
--- OUTSIDE RECORDS SUMMARY | 2015-08-13 00:45 | XMS_ITS | Encounter Summary ---
Author Organization [facility] Address [address] [facility] [address] [place] [address] Phone Care Team Providers Care Concrete Worker Name Role Phone Robert Smith MD Primary Care Provider Reason for Visit * MRI/CAT Scan - Closed Specialty Diagnoses / Procedures Referred By George t Referred To Contact Radiology Procedures CT Face Outside With Interpretation Or Consult Hazel Maravilla DDS [address] [place] [address] Phone: tel: fax: mailto:[email or web address] Referral ID Status Reason Start Date Expiration Date Visits Re quested Visits Authorized [id number] Closed 10/09/2015 10/08/2016 1 1 Encounter Details Date Type Department Care Team (Late st Contact Info) Description 08/13/2015 12:45 AM EDT Hospital Encounter [facility] General Imaging [address] [place] [address] Hazel Maravilla DDS [address] [place] [phone] [email or web address] Social History Tobacco Use Types Packs/Day Years [...] AM EDT) 10/09/2015 4:18 PM EDT Impressions [facility] - 10/10/2015 10:58 AM EDT IMPRESSION: 1. Postsurgical changes of the left mandible as noted above without evidence of abscess/active infection or sialolithiasis. 2. Otherwise normal enhanced CT of the neck. No mass lesion, lymphadenopathy, fluid collection, or abnormal enhancement identified. Narrative [facility] [facility] - 10/10/2015 10:58 AM EDT Reviewed by [...] abnormal dilation of the bilateral parotid or Rosana's ducts. No subcutaneous fat stranding or other secondary signs to suggest underlying inflammatory or infectious process. The major vessels of the neck enhance normally. Radiator Specialist, parapharyngeal, and retropharyngeal spaces appear normal. The [...] no abnormal dilation of thebilateral parotid or Cherokee's ducts. No subcutaneous fat stranding or othersecondary signs to suggest underlying inflammatory or infectious process. The major vessels of the neck enhance normally. Radiator Specialist, parapharyngeal, and retropharyngeal spaces appear normal.The thyroid [...] OUTSIDE IMAGING W/ INTER PRETATION Final Result [facility] [address] [facility] [place] [address] documented in this encounter Visit Diagnoses Not on filedocumented in this encounter Care Teams Concrete Worker Relationship Specialty Start Date End Date Robert Smith MD [address] [place] [address] [place] [address] PCP - General Internal Medicine 04/30/15 documented as of this encounter Additional Source Comments The information contained in this document represents components of the legal health record. It is not the complete legal health record.[facility]
--- OUTSIDE RECORDS SUMMARY | 2023-08-21 08:30 | XMS_ITS ---
Author Organization [facility] Address [address] [place] [address] Care Team Providers Care Fall Internship Name Role Phone [facility], [facility] [phone] REASON FOR VISIT f/up skin infection Encounters Encounter Location Date Provider Diagnosis [facility] [address] [place] [address] 08/21/2023 [facility] Plan Of Treatment No Information Progress Notes * Román RUGGIERODOB:1960 (64 yo M)Acc No.[id number]:08/21/2023 Progress Notes Patient: Román RASHID Provider: Sharmila AGUAYO [facility] :1960 A ge:62 Y S ex:Male Date:08/21/2023 Phone: Address:[address], [place] Subjective: * Chief Complaints: * 1 . F/up skin infection. * Medical History: Objective: * Vitals: Assessment: Plan: * Treatment: * Billing Information: * Visit Code: * Procedure Codes: * Electronic signature of [facility] on 11/15/2024 at 04:34 PM EDT Sign off status: Pending * Provider: Sharmila AGUAYO [facility] Date: 08/21/2023 Generated for Regla enamorado/Carmel/eTransmitting on: 11/15/2024 04:34 PM EDT
--- OUTSIDE RECORDS SUMMARY | 2023-11-28 06:45 | XMS_ITS ---
Author Organization [facility] Address [address] [place] [address] Care Team Providers Care Soldering Machine Setter Name Role Phone [facility] Unavailable [phone] Allergies No Known Allergies REASON FOR VISIT [...] Temperature Encounters Encounter Location Date Provider Diagnosis [facility] [address] [place] [address] 11/28/2023 [facility] Assessments Encounter Date Diagnosis (ICD [...] Notes * Hermilo RUGGIERO:1960 (64 yo M)Acc No.[id number]:11/28/2023 Patient: Román RASHID Provider: Sharmila AGUAYO HELIX :1960 A ge:63 Y S ex:Male Date:11/28/2023 Phone: Address:[address], [phone] Subjective: * Chief Complaints: * 1 . Prescription Refill. 2. Patient requesting service from promotional campaign pmax_rx_ftrx_top_meds. * HPI: T [facility] Complaint History: Reason for visit: Medication RequestRequested: Keflex, 500mg, 10 days Reason: Skin infection How Lon minths Side Effects: Prescriber: Dr Gonzalez. Staff Air Tactical Officer Per pt: I cant loacte my Keeflex [...] * Procedure Codes: * Electronic signature of [facility] on 11/15/2024 at 04:35 PM EDT Sign off status: Pending * Provider: Sharmila LAWRENCE Date: 0 11/28/2023 Generated for Regla enamorado/Carmel/Debbie on: 0 11/15/2024 04:35 PM EDT History and Physical Notes * Physical Examination Category Sub-Category Detail Notes Section Note s Asynchronous vi sit, unable to assess
--- OUTSIDE RECORDS SUMMARY | 2024-01-12 06:00 | XMS_ITS ---
Author Organization [facility] Address [address] [place] [address] Care Team Providers Care Oil Recovery Unit Operator Name Role Phone Luis (RETIRED) Robert CARROLL Primary Care Provide r Paul Doe Jr [phone] REASON FOR VISIT screening Encounters Encounter Location Date Provider Diagnosis [facility] [address] [place], [place] [phone] 01/12/2024 Paul Jones Jr Plan Of Treatment No Information Progress Notes * NATHALIE PHILLIPSDOB:1960 (64 yo M)Acc No.[id number]:01/12/2024 COLON WITH MAC Patient: NATHALIE RASHID Provider: Teo Jones MD :1960 A ge:63 Y S ex:Male Date:01/12/2024 Address:[address] [place], [place] [phone] Pcp:Robert Smith (RETIRED )MD Subjective: * Chief Complaints: * 1 . Screening. * Medical History: Objective: * Vitals: Assessment: Plan: * Treatment: * * The named appointment provid er may or may not be the originator of this progress note, and it is not deemed complete until electronically signed by the appointment provider. Sign off status: Pending * Provider: Teo Jones MD Date: 1 Generated for Printi ng/Faxing/eTransmitting on: 0 11/15/2024 04:34 PM EDT
--- OUTSIDE RECORDS SUMMARY | 2024-01-27 09:50 | XMS_ITS ---
Author Organization [facility] Address [address] [place] [address] Care Team Providers Care Switching Clerk Name Role Phone Luis (RETIRED) Robert CARROLL Primary Care Provide r Paul Doe Jr REASON FOR VISIT screening Encounters Encounter Location Date Provider Diagnosis [facility] [address] [place] [phone] 01/27/2024 Paul Jones Jr Colon cancer screening Z12.11 and Colon polyps K63.5 Assessments Encounter Date Diagnosis (ICD Code) Assessment Notes Treatment Notes Treatment Clinical Notes Section Notes 01/27/2024 Colon cancer screening (ICD-10 - Z12.11) 01/27/2024 Colon polyps (ICD-10 - K63.5) Plan Of Treatment No Information Progress Notes * NATHALIE PHILLIPSDOB:1960 (64 yo M)Acc No.[id number]:01/27/2024 COLON WITH MAC Patient: NATHALIE RASHID Provider: Teo Jones MD :1960 A ge:63 Y S ex:Male Date:01/27/2024 Address:[address] [place] [address] [facility] Pcp:Robert Smith (RETIRED )MD Subjective: * Chief Complaints: * 1 . Screening. * Medical History: Objective: * Vitals: Assessment: * Assessment: 1. C olon cancer screening - Z12.11 (Primary) 2 . C olon polyps - K63.5? Plan: * Treatment: * Procedure Codes: 4 5385 LESION REMOVAL COLONOSCOPY, 64230 COLONOSCOPY AND BIOPSY, Modifiers: 59 , 0529F INTRVL 3+YRS PTS CLNSCP DOCD * * The named appointment provid er may or may not be the originator of this progress note, and it is not deemed complete until electronically signed by the appointment provider. Sign off status: Pending * Provider: Teo Jones MD Date: 1 03/28/2023 Generated for Regla enamorado/Carmel/Aylinitting on: 0 11/15/2024 04:35 PM EDT
--- NOTE | 2024-11-15 15:48 | A.OFFPC_ITS ---
Vital Signs 11/15/24 15:53 Height 6 ft Weight 228 lb BMI 30.9 BP 146/84 H Blood Pressure Location Rt brachial Position Sitting Respiration 16 Pulse 70 Pulse Source Pulse Oximeter Temp 98.2 F Temp Source Temporal Artery Scan Pulse Oximetry (%) 97 Oxygen Delivery Method Room Air Intake Visit Reasons: routine Guide Excursion Required: No Accompanied by: Self / Same As Patient Allergies shellfish derived Allergy (Severe, Verified 11/15/24 15:48) ANAPHYLAXIS ciprofloxacin (CIPROFLOXACIN) Allergy (Intermediate, Verified 11/15/24 15:48) FLU LIKE SYMPTOMS Tobacco use date assessed: 10/12/24 Dental Screening Dental Screen Date: 10/12/24 HPI HPI Comments History of Present Illness Details History of Present Illness The patient is a 64-year-old male presenting with chest congestion. The congestion had an onset a few weeks ago, and it was evaluated with a chest X-ray that was performed approximately a month ago, showing clean results. The patient reports a persistent congestion, particularly when lying down, accompanied by white mucus. There is no associated fever or chills, suggesting a non-infective etiology. The patient also reports occasional heartburn and has been sleeping with head elevation, which seems to provide some relief. These symptoms are recurrent and have been troublesome primarily during nighttime. Additionally, the patient has been experiencing jaw pain for over a year, which the patient associates with chronic issues with the jaw bone or salivary gland region. There is a history of a root canal done five years ago, which seems to have initiated these symptoms. Multiple imaging studies performed by various specialists, including oral surgeons and ENTs, have not provided a definitive diagnosis. The patient has been on and off antibiotics, which provide temporary relief but the problems reoccur approximately once a month. The patient uses antibiotics obtained online inappropriately, despite knowing potential risks of resistance. This behavior is a significant part of the problem management, complicating the clinical picture. 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 - Tobacco use disorder (smoking for appr oximately 42 years) - Previously elevated cholesterol levels Surgical History: - Tooth extraction post-root canal - Bone debridement procedure in the jaw region Medications: - Keflex (small dose as prescribed by a superintendent compressor stations for a past cyst) Health Maintenance - Discussed the importance of lung cance r screening due to the patient's 35-hquq-yvcl smoking history - Discussed the management of elevated c holesterol including medication adjustments COVID: Tetanus (Every 10 years): Shingrix (50+): Colonoscopy (45-75): HIV (15-65), Syphillis, Hep C: Pap Smear: LDCT: Social History - Smokes about a pack of cigarettes humaira y, with a 42-year smoking history - Reports increased shortness of breath and fatigue with minimal activity - No alcohol consumption - Reports gaining weight during the past month despite active lifestyle in summer Review of Systems - Respiratory: Reports chest congestion with white mucus, especially at night, relief with head elevation. Denies cough with blood, fever, or chills. - Gastrointestinal: Reports occasional h eartburn. - Cardiovascular: Denies palpitations, c hest fluttering. - Neurological: Denies weakness. - Psychiatric: Denies anxiety, depressio n. - General: Reports fatigue and weight ga in. - Musculoskeletal: Reports occasional wayne int pain, but no baseline history of arthritis. Constitutional: No fever, chills, sweats, weakness, or fatigue. Appetite is normal. Eye: No blurring of vision or double vision. No icterus. Ear/Nose/Mouth/Throat: No sore throat or nasal congestion. Respiratory: No shortness of breath, cough, wheezing. Cardiovascular: No chest pain, palpitations or peripheral edema. Gastrointestinal: No nausea, vomiting, diarrhea, constipation, or abdominal pain Genitourinary: no dysuria, hematuria, urgency or incontinence of urine. Endocrine: denies excessive thirst or polyuria, cold or heat intolerance Musculoskeletal: No back pain, joint pain or stiffness, joint swelling Integumentary: No rash or pruritis. Neurologic: No confusion, numbness, tingling, or headache. Psychiatric: No anxiety. No depression. Physical Exam General: +Alert and oriented, Well nourished, No acute distress. Eye: Pupils are equal, round and reactive to light, Intact accommodation, Extraocular movements are intact, Normal conjunctiva, Vision unchanged. HENT: Normocephalic, Atraumatic, Tympanic membranes are clear, Normal hearing, Oral mucosa is moist, No pharyngeal erythema, Ear canals patent. Respiratory: Lungs CTA bilaterally, No wheeze, Respirations are non-labored, Chest congestion noted, White mucus present, No cough up blood. Cardiovascular: Regular rate, Regular rhythm, S1 auscultated, S2 auscultated, No murmur, Good pulses equal in all extremities, Normal peripheral perfusion, No edema. Gastrointestinal: Soft, Non-tender, Non-distended, Normal bowel sounds, No organomegaly, Occasional diarrhea noted. Musculoskeletal: Normal range of motion, Normal strength, No tenderness, No swelling, No deformity, Normal gait, Varicosity on legs noted. Integumentary: Warm, Dry, [place], Intact, No skin lesions, Nails look good. Neurologic: Alert, Oriented, Normal sensory, Normal motor function, No focal defects, Cranial Nerves II-XII are grossly intact, Normal deep tendon reflexes. Psychiatric: Cooperative, Appropriate mood & affect, Normal judgment. Results - Labs: WHITE count ordered but not yet available for review. - Tests and Diagnostics: Previous chest X-ray was clear. Assessment and Plan 1. Chest Congestion - Consider potential causes including al lergies and reflux as discussed. - A trial of proton pump inhibitors (pro opameprazole) recommended to rule out acid reflux contribution. 2. Jaw Pain / Salivary Gland Disorder - Encouraged avoidance of unnecessary an tibiotics. - Referral to ENT is in place. Use lemon drops to stimulate salivary gland function temporarily. 3. Tobacco Use Disorder - Strongly advised smoking cessation due to significant health risks, including potential contribution to current symptoms. 4. Elevated Blood Pressure and Hyperlipi demia - Continue with current antihypertensive as prescribed. - Increase atorvastatin dosage as previo usly ordered by Dr. Farrell. Plan Patient was informed and verbally consented to the use of an ambient scribe for clinic note documentation during this visit. 1. Chest Congestion - Trial of proton pump inhibitors (proop ameprazole) suggested to alleviate symptoms. - Advised positional changes and monitor ing of symptoms. 2. Jaw Pain / Salivary Gland Disorder - Avoidance of antibiotics unless prescr ibed by ENT. - Use lemon candies to enhance salivary gland function. - Follow-up with ENT as scheduled. 3. Tobacco Use Disorder - Emphasized benefit of smoking cessatio n for vascular health and reduction of symptoms. 4. Elevated Bp And Hyperlipidemia - Continue prescribed antihypertensive m edication. - Modify atorvastatin to 20 mg daily for elevated cholesterol management. Discussion Notes I explained to the patient the potential contributing factors to his chest congestion, including allergies, reflux disease, and possible heart failure, along with the risks related to long-term smoking. The need for further evaluation with an echocardiogram was discussed to assess cardiac function. I emphasized the importance of discontinuing non-prescribed antibiotic use, noting the critical risk of drug resistance. The benefits and necessity of stopping smoking were highlighted, and a plan was agreed upon to initiate lung cancer screening due to the history of significant tobacco use. Management of his elevated cholesterol and blood pressure will continue with alterations in his medication regimen. Patient Instructions - Avoid unnecessary antibiotics; consult ENT as advised. - Take prescribed proton pump inhibitors , adjust sleeping position for chest congestion. - Quit smoking and seek cessation aid if necessary. - Attend scheduled diagnostic evaluation s, including an echocardiogram and lung cancer screening. - Monitor symptoms and seek care if sign ificant changes or worsening occurs. - Schedule follow-up appointments as nee ded based on test results and evaluations. [facility] Medical History (Updated 11/15/24 @ 16:21 by Sanjay Dobbs MD) Shortness of breath Screening for lung cancer Frozen shoulder syndrome Chronic infection GERD (gastroesophageal reflux disease) Hyperlipidemia Surgical History History of dental surgery History of esophagogastroduodenoscopy (EGD) H/O colonoscopy (~01/27/24) History of mandibular surgery Family History Mother Cancer of unknown origin Father Cancer of unknown origin Social History Household Members: Spouse Housing: House Alcohol intake: current Alcohol intake frequency: does not drink Patient Tobacco Use Status: Current everyday Tobacco user Tobacco use type: Cigarette Cigarette Packs Per Day: 1 Cigarettes Per Day: 20.0 e-Cigarette/Vaping Use: Never Used service: No Current occupational status: employed Cognitive needs: No Hearing needs: No Vision needs: Yes (rx glasses) Questionnaire PHQ-9 Over the last 2 weeks, how often have you been bothered by any of the following problems? 1. Little interest or pleasure in doing things: not at all 2. Feeling down, depressed, or hopeless: not at all 3. Trouble falling or staying asleep, or sleeping too much: not at all 4. Feeling tired or having little energy: not at all 5. Poor appetite or overeating: not at all 6. Feeling bad about yourself - or that you are a failure or have let yourself or your family down: not at all 7. Trouble concentrating on things, such as reading the newspaper or watching television: not at all 8. Moving or speaking so slowly that other people could have noticed. Or the opposite - being so fidgety or restless that you have been moving around a lot more than usual: not at all 9. Thoughts that you would be better off or of hurting yourself in some way: not at all Total score: 0 Depression Screening Interpretation: Negative Depression Screening Done: Yes 99401 - PHQ-9 Billing: Yes Source: Developed by Drs. Luis A Bronson, Caryn Rogers, Kevin Do and colleagues, with an educational edison from [employer]. Thrive Questionnaire Date Thrive assessed: 10/12/24 AUDIT C Alcohol Use Questionnaire (AUDIT-C) 1. How often do you have a drink containing alcohol?: Never Total Score: 0 PARISH-7 AMB Questionnaire PARISH-7 Date PARISH - 7 assessed: 11/15/24 Feeling nervous, anxious, or on edge: 0 = Not at all Not being able to stop or control worryin = Not at all Worrying too much about different things: 0 = Not at all Trouble relaxin = Not at all Being so restless that it is hard to sit still: 0 = Not at all Becoming easily annoyed or irritable: 0 = Not at all Feeling afraid as if something awful might happen: 0 = Not at all Total PARISH-7 score (0-4 normal; 5-9 mild; 10-14 moderate; 15-21 severe): 0 Source: Developed by Drs. Luis A Bronson, Caryn Rogers, Kevin Do and colleagues, with an educational edison from [employer]. PARISH-7 Assessment Billing PARISH-7 Assessment Tool: PARISH-7 Assessment 93209 Physical exam (Primary Care) Vital Signs: Last Vital Signs Temp 98.2 F 11/15/24 15:53 Pulse 70 11/15/24 15:53 Resp 16 11/15/24 15:53 BP 146/84 H 11/15/24 15:53 Pulse Ox 97 11/15/24 15:53 Oxygen Delivery Method Room Air 11/15/24 15:53 BMI result Body Mass Index 30.9 Tobacco/Smoking Status: Tobacco use Status Tobacco use date assessed 10/12/24 11/15/24 15:57 Patient Tobacco Use Status Current everyday Tobacco 11/15/24 15:57 Tobacco use type Cigarette 11/15/24 15:57 e-Cigarette/Vaping Use Never Used 11/15/24 15:57 Depression Screening Interpretation: Negative Thrive Assessment: Date of Thrive Assessment Date Thrive assessed 10/12/24 11/15/24 15:57 Coding Level of Care Code Est Pt Level 4 (55431) Complex EM visit Add On G2211 Diagnoses Screening for lung cancer Z12.2 Hyperlipidemia, unspecified hyperlipidemia type E78.5 Hyperlipidemia type: unspecified 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 Shortness of breath R06.02 Additional Codes PHQ-9 - 54555 - PHQ-9 Billing: Yes ([id number]) PARISH-7 Assessment Billing - PARISH-7 Assessment Tool: PARISH-7 Assessment 66770 ([id number]) Time Spent (min) 80 Assessment & Plan Assessment & Plan (1) Screening for lung cancer: Comment: Over 40 pack year smoking history Code(s): Z12.2 - Encounter for screening for malignant neoplasm of respiratory organs Category: Medical Plan: Order LDCT (2) Hyperlipidemia: Comment: - Elevated lipid panel at last visit will increase statin to 20mg QHS Code(s): E78.5 - Hyperlipidemia, unspecified Category: Medical Qualifiers: Hyperlipidemia type: unspecified Qualified Code(s): E78.5 - Hyperlipidemia, unspecified Plan: Start atorvastatin 20mg QHS (3) Chronic sialoadenitis: Code(s): K11.23 - Chronic sialoadenitis Plan: - Advised against repeated antibiotic use to prevent resistance and follow up with ENT (4) Shortness of breath: Comment: - WOrsening shortness of breath and fatigue, requires multiple pillows to sleep at night, wakes up gasping for air Code(s): R06.02 - Shortness of breath Category: Medical Plan: Order ECHO - Order BNP Plan I explained to the patient the potential contributing factors to his chest congestion, including allergies, reflux disease, and possible heart failure, along with the risks related to long-term smoking. The need for further evaluation with an echocardiogram was discussed to assess cardiac function. I emphasized the importance of discontinuing non-prescribed antibiotic use, noting the critical risk of drug resistance. The benefits and necessity of stopping smoking were highlighted, and a plan was agreed upon to initiate lung cancer screening due to the history of significant tobacco use. Management of his elevated cholesterol and blood pressure will continue with alterations in his medication regimen. Orders: Orders CT lung screening Today E78.5 - Hyperlipidemia, unspecified, K11.23 - Chronic sialoadenitis, Z12.2 - Encounter for screening for malignant neoplasm of respiratory organs CA echo transthoracic complete Today R06.02 - Shortness of breath Hemoglobin A1c Today E78.5 - Hyperlipidemia, unspecified Lipid Panel Today E78.5 - Hyperlipidemia, unspecified NT-proBNP Today R06.02 - Shortness of breath TSH reflex Free T4 Today E78.5 - Hyperlipidemia, unspecified Medications: New atorvastatin (Lipitor) 20 mg PO BEDTIME 90 tabs 0RF 90 days omeprazole 20 mg PO DAILY 30 caps 0RF Discontinued atorvastatin Discontinued Reason: None 10 mg PO BEDTIME 90 tabs 1RF Patient Instructions: - Avoid unnecessary antibiotics; consult ENT as advised. - Take prescribed proton pump inhibitors, adjust sleeping position for chest congestion. - Quit smoking and seek cessation aid if necessary. - Attend scheduled diagnostic evaluations, including an echocardiogram and lung cancer screening. - Monitor symptoms and seek care if significant changes or worsening occurs. - Schedule follow-up appointments as needed based on test results and evaluations.
[2024-11-15 15:53] VITALS: BP 146/84; PULSE 70; RESP 16; TEMP 36.8; O2SAT 97; BMI 30.9
--- OUTSIDE RECORDS SUMMARY | 2024-11-15 16:35 | XMS_ITS | Patient Health Record ---
Author Organization [facility] Address [address] [place] [address] Care Team Providers Care Ferryboat Deckhand Name Role Phone [facility] Unavailable [phone] Allergies No Known Allergies Reason For Referral No Information Medications Medication SIG (Take, Route, Frequency, Duration) Notes Start Date End Date Status Medrol 4 MG as directed Orally O nce a day; Duration: 6 days 05/10/2023 Active Cephalexin 500 MG 1 capsule Orally francisco ry 6 hrs; Duration: 7 days 08/14/2023 Active Cephalexin 500 MG Oral; Duration: 30 Days Active Cefpodoxime Proxetil 200 MG Oral; Duration: 10 Days Active Fluticasone Propionate 50 MCG/ACT SPRAY 1 SPRAY INTO EACH NOSTRIL TWO TIMES A DAY IF NEEDED Nasal; Duration: 30 Days Active Clindamycin HCl 300 MG Oral; Duration: 5 Days Active Ibuprofen 800 MG Oral; Duration: 5 Days Active Amoxicillin-Pot Clavulanate 875-125 MG Oral; Duration: 7 Days Activ e Chlorhexidine Gluconate 0.12 % Mouth/Throat; Duration: 15 Days Active Social History Tobacco Use: Social History Observation Description Date Details (start date - stop date) Current Smoker NA - NA Tobacco Use/Smoking Question Answer Notes Are you a current smoker Tobacco Control (Standard) Question Answer Notes Tobacco use: Current smoker Assessments Encounter Date Diagnosis (ICD Code) Assessment [...] Insured Coverage Start Date Coverage End Date [facility] Self Pay [address] [place] [id number] Román Ruggiero Self - patient is the insured Medical (General) History Medical History History ICD Code denies
--- OUTSIDE RECORDS SUMMARY | 2024-11-15 16:35 | XMS_ITS | Clinical Summary ---
Author Organization [facility] Address [address] [place] [address] Care Team Providers Care Lease Out Worker Name Role Phone Ash Smith MD Primary Care Provider [phone] Social History Tobacco Use Types Packs/Day Years [...] ANTHEM - OUT OF STATE Care Teams Lease Out Worker Relationship Specialty Start Date End Date Ash Smith MD [address] [place] [address] PCP - General 08/27/17
--- OUTSIDE RECORDS SUMMARY | 2024-11-15 16:35 | XMS_ITS | Clinical Summary ---
Author Organization [facility] Address [address] [place] [address] Care Team Providers Care Full Charge Bookkeeper Name Role Phone Robert Smith MD Primary Care Provider [phone] Social History Tobacco Use Types Packs/Day Years [...] age to complete this topic Care Teams Full Charge Bookkeeper Relationship Specialty Start Date End Date Robert Smith MD [address] [place] [address] Dr Laverne [place] PCP - General 05/07/22
--- OUTSIDE RECORDS SUMMARY | 2024-11-15 16:35 | XMS_ITS | Patient Health Record ---
Author Organization [facility] Address [address] [place] [address] Care Team Providers Care Special Education Aide Name Role Phone Luis (RETIRED) Robert CARROLL Primary Care Provide Paul Doty Jr Unavailable Allergies Allergen (clinical drug ingredient) Drug/Non Drug Allergy documented on EMR Reaction Allergy Type Onset Date Status ciprofloxacin Cipro Unknown Drug Allergy Act carter red shelll fish (uncoded) Unknown Allergy Active Results Component Value Reference Range Notes Pathology Reviewed date:02/04/2024 09:12:40 AM Interpretation: Performing Lab:[facility], [address] [place] [id number] Notes/Report: Reason For Referral No Information Medications Medication [...] Problem Status W/U Status Risk Notes Problem [id number] Colon cancer screening (Z12.11) Active confirmed Problem [id number] Abdominal bloating (R14.0) Active confirmed Problem [id number] Hemorrhoids, unspecified hemorrhoid type (K64.9) Active confirmed Vital Signs Blood pressure diastolic 00 mm Hg 12/10/2023 Height 6 ft in 12/10/2023 Blood pressure systolic 00 mm Hg 12/10/2023 Weight 223 lbs 12/10/2023 BMI 30.24 kg/m2 12/10/2023 Encounters Encounter Location Date Provider Diagnosis [facility] Outpatient [address] [place] [id number] 01/27/2024 Paul Jones Jr Colon cancer screening Z12.11 and Colon polyps K63.5 [facility] [address] [place] [phone] 12/10/2023 Paul Jones Jr Colon cancer screening Z12.11 ; Abdominal bloating R14.0 and Hemorrhoids, unspecified hemorrhoid type K64.9 [facility] [address] [place] [phone] 01/11/2024 Paul Jones Jr [facility] [address] [place] [phone] 02/04/2024 Paul Jones Jr Assessments Encounter Date Diagnosis (ICD Code) Assessment Notes Treatment Notes Treatment Clinical Notes Section Notes 01/27/2024 Colon cancer screening (ICD-10 - Z12.11) 01/27/2024 Colon polyps (ICD-10 - K63.5) 12/10/2023 Colon cancer screening (ICD-10 - Z12.11) Colonoscopy material was printed We discussed abdominal bloating today. We discussed diet, lifestyle modifications, and weight management. We recommended use rxrs-gce-abrdpfy anti-gas medications. We discussed the care treatment of hemorrhoids today. He can use hlcb-icp-extwyyp hydrocortisone cream as needed for this. He is due for colon cancer screening. This will be arranged. He understands risks and benefits and agrees to proceed. 12/10/2023 Abdominal bloating (ICD-10 - R14.0) We discussed abdominal bloating today. We discussed diet, lifestyle modifications, and weight management. We recommended use adjz-etl-iepvnxz anti-gas medications. We discussed the care treatment of hemorrhoids today. He can use pioj-swy-cczster hydrocortisone cream as needed for this. He is due for colon cancer screening. This will be arranged. He understands risks and benefits and agrees to proceed. 12/10/2023 Hemorrhoids, unspecified hemorrhoid type (ICD-10 - K64.9) We discussed abdominal bloating today. We discussed diet, lifestyle modifications, and weight management. We recommended use ybkt-kji-pbdmimj anti-gas medications. We discussed the care treatment of hemorrhoids today. He can use ljuz-siu-pocnvvm hydrocortisone cream as needed for this. He is due for colon cancer screening. This will be arranged. He understands risks and benefits and agrees to proceed. Plan Of Treatment Future Test Test Name Order Date COLONOSCOPY 12/10/2023 Insurance Providers Payer Name Payer Address Payer Phone Subscriber Number Group Number Insured Name Patient Relationship to Insured Coverage Start Date Coverage End Date [facility] [address] [place] [address] [id number] NATHALIE PHILLIPS Self - patient is the insured Medical (General) History Medical History History ICD Code Hyperlipidemia Gastroesophageal reflux disease, EGD 10/21 2, negative for H. pylori. Colonoscopy 11/01. Hyperplastic polyps x2 . Surgical History Surgery Date(Month/Year) dental implant surgery 2018
--- OUTSIDE RECORDS SUMMARY | 2024-11-15 16:35 | XMS_ITS | Clinical Summary ---
Author Organization [facility] Address [address] [facility] [address] [place] [address] Phone Care Team Providers Care Chipper Feeder Name Role Phone Robert Smith MD Primary Care Provider Hazel Maravilla DDS Unavailable Mason Lester MD Unavailable [phone] Allergies Active Allergy Reactions Criticality Noted Date Comments Cipro (Ciprofloxacin) Musculoskeletal Pain High 09/20 Medications penicillin V potassium (VEETID) 500 MG tablet Take 500 mg by mouth 4 (four) times a day. Reported on 06/19/2016 Active ibuprofen (ADVIL,MOTRIN) 200 MG tablet Take 200 mg by mouth every 6 (six) hours as needed for pain (specific location in comments). Active amoxicillin-cla vulanate (AUGMENTIN XR) 1,000-62.5 mg per tablet Take 2 tablets by mouth 2 (two) times a day. Active mometasone (NASONEX) 50 mcg/actuation nasal spray 2 sprays by Nasal route daily. Active acetaminophen (TYLENOL) 650 MG CR tablet Take 650 mg by mouth every 8 (eight) hours as needed for pain (specific location in comments). Active Active Problems No known active problems Family History Medical History Relation Comments Diabetes mellitus Father Lung cancer Mother Relation Status Comments Father Mother Social History Tobacco Use Types Packs/Day Years [...] PM EST Sexual Orientation Not on file Last Filed Vital Signs Vital Sign Reading Time Taken Comments Blood Pressure 146/89 09/12/2020 4:28 PM EDT Pulse 51 09/12/2020 4:28 PM EDT Temperature 36.6 C (97.8 F) 05/15/2019 10:57 AM EST Respiratory Rate - - Oxygen Saturation 97% 05/15/2019 10:57 AM EST Inhaled Oxygen Concentration - - Weight 104.3 kg (230 lb) 09/12/2020 4:28 PM EDT Height 181.6 cm (5' 11.5 ) 09/12/2020 4:28 PM ED T Body Mass Index 31.63 09/12/2020 4:28 PM EDT Plan of Treatment Health Maintenance Due Date Last Done Comments LIPID PANEL 1961 DEPRESSION SCREENING 1973 SMOKING Hx and SMOKELESS TOB ACCO SCREENING 1974 HEPATITIS C SCREENING 10/21/1979 HIV ONE-TIME SCREENING (18-6 5 YEARS) 10/21/1979 PNEUMOCOCCAL VACCINES (50+ y ears) (1 of 2 - PCV) 1980 COLOGUARD 2006 COLONOSCOPY 2006 COLORECTAL CANCER SCREENING 2006 FIT TEST 2006 FOBT 2006 SIGMOIDOSCOPY 2006 VIRTUAL COLONOSCOPY 2006 ZOSTER VACCINES (1 of 2) 10/21/2011 COVID-19 VACCINE (2 2023-2 5 season) 2023 07/14/2020 Adult Td,Tdap Booster 10/19/2024 10/19/2014 RSV VACCINE (1 - 1-dose 75+ series) 2036 HEPATITIS A VACCINES Aged Out No long er eligible based on patient's age to complete this topic HIB VACCINES Aged Out No longer eligi ble based on patient's age to complete this topic MENINGOCOCCAL VACCINES (ACWY) Aged Out No longer eligible based on patient's age to complete this topic MENINGOCOCCAL VACCINES (B) Aged Out N o longer eligible based on patient's age to complete this topic Medical Devices Not on file Insurance [address] [place], [place] [address]O POS [facility] H[facility] POS [facility] HMO POS Member Subscriber Plan / Payer (Ef fective 2017-Present) Name:Román Ruggiero Relation to Subscriber:Spouse Name:ДМИТРИЙ RUGGIERO Date of :1963 (Home) Address: [address] [place], [place] Payer ID:[id number] (NAIC) Type:HMO Address: [address] [place], [place] [facility] [place] [address] [place] [address] HMO POS [facility] [place] [address] [place] [address] [address] [place] [address]O POS Care Teams Chipper Feeder Relationship Specialty Start Date End Date Robert Smith MD [address] [place] [address] Dr LOVETT [place], [place] PCP - General Internal Medicine 04/30/15 Hazel Maravilla DDS [address] [place] [address] [email or web address] ward clerk 10/09/15 Mason Lester MD [address] [place] [address] [email or web address] Otolaryngology 05/06/18 Additional Source Comments The information contained in this document represents components of the legal health record. It is not the complete legal health record.[facility]
--- OUTSIDE RECORDS SUMMARY | 2024-11-15 16:35 | XMS_ITS | Encounter Summary ---
Author Organization [facility] Address [address] [place] [address] Phone Care Team Providers Care Wire Steward Name Role Phone Robert Smith MD Primary Care Provider Hazel Maravilla DDS Unavailable [phone] Mason Lester MD Unavailable [phone] Reason for Referral * MRI/CAT Scan - Closed Specialty Diagnoses / Procedures Referred By George killian Referred To Contact Radiology Diagnoses Sialoadenitis Inflammatory disorder of jaw Procedures CT Neck CT Face Hazel Maravilla DDS Phone: tel: fax: [email or web address] Referral ID Status Reason Start Date Expiration Date Visits Re quested Visits Authorized [id number] Closed 05/06/2018 07/05/2018 1 1 Encounter Details Date Type Department Care Team (Latest Contact Info) Description 05/09/2018 Ancillary Orders [facility] makeup artist [address] [place] [address], [address] Floor, [address] [place] [address] Hazel Maravilla DDS [address] [place] [address] [email or web address] Sialoadenitis; Inflammatory disorder of jaw Social History Tobacco Use Types Packs/Day Years Used Date Smoking Tobacco: Every Day Cigarettes 0.3 33.6 Started: 04/08/1991 Smokeless Tobacco: Never Alcohol Use Standard Drinks/Week Comments No 0 (1 standard drink = 0.6 oz pur e alcohol) one to in a months time Sex and Gender Information Value Date Recorded Sex Assigned at Male 03/30/2017 9:36 AM EST Legal Sex Male 12:08 PM EST Gender Identity Male 05/18/2017 4:37 PM EST Sexual Orientation Not on file documented as of this encounter Plan of Treatment Not on file documented as of this encounter Results * CT NECK SOFT TISSUE WITH CONTRAST (05/09/2018 1:40 PM EST) Anatomical Region Laterality Modality Neck Computed Tomogra phy 05/12/2018 1:19 PM EST Impressions 05/13/2018 4:22 AM EST No cervical mass lesion, collection, lymphadenopathy, or other acute abnormality identified. The left submandibular gland is slightly asymmetrically larger than the right though otherwise unremarkable in appearance. ATTESTATION: I, Dr. Jossue Castellano as teaching physician, have reviewed the images for this case and if necessary edited the report originally created by Dr. Clarence Dorman. Narrative 05/13/2018 4:22 AM EST Reviewed by Dr. Clarence Dorman with Dr. Jossue Castellano (Attending Radiologist) CT NECK SOFT TISSUE WITH CONTRAST Diagnostic CT scan of the NECK WITH intravenous contrast. HISTORY: As in header. 57-year-old male status post exploratory surgical procedure and therapy of the left mandibular first molar several years ago, complaining of subsequent pain and swelling within the left floor of mouth/submandibular region. COMPARISON: MRI FACE (PAROTID GLAND) WITH AND WITHOUT CONTRAST 11/14/2015. FINDINGS: There have been multiple dental restorations, with metallic streak artifact that partially obscures the oral cavity and adjacent structures. No definite periapical lucency is seen. There is no mass lesion or collection within the neck. There are no cervical lymph nodes meeting pathologic CT criteria. The parotid, submandibular, and sublingual glands and spaces are normal in appearance bilaterally. The left submandibular gland is slightly asymmetrically larger than the right, and otherwise unremarkable in appearance. The nasopharynx and the structures of the hypopharynx and larynx are unremarkable in appearance. The pharyngeal mucosa appears intact. The thyroid gland is unremarkable. The major cervical vessels enhance normally with contrast. Limited images of the lung apices demonstrate no consolidation, pleural effusion, or pneumothorax. Opacities along the anterior and lateral aspects of the trachea may reflect retained secretions. There is reversal of the normal cervical lordosis. There are multilevel degenerative changes of the cervical spine, with posterior disc osteophyte complexes and uncovertebral hypertrophy most pronounced at C4-5 and C5-6, resulting in mild to moderate neural foraminal stenosis bilaterally at these levels. The orbits and globes are unremarkable. The paranasal sinuses are clear. The mastoid air cells are clear. Limited images of the brain parenchyma demonstrate no intracranial hemorrhage, mass effect, or hydrocephalus. Procedure Note Jossue Castellano MD - 05/13/[address] Clarence Dorman with Dr. Jossue Castellano (Attending Radiologist) CT NECK SOFT TISSUE WITH CONTRAST Diagnostic CT scan of the NECK WITH intravenous contrast. HISTORY: As in header. 57-year-old male status post exploratory surgical procedure and therapy of the left mandibular first molar several yearsago, complaining of subsequent pain and swelling within the left floor of mouth/submandibular region. COMPARISON: MRI FACE (PAROTID GLAND) WITH AND WITHOUT CONTRAST11/14/2015. FINDINGS: There have been multiple dental restorations, with metallic streakartifact that partially obscures the oral cavity and adjacent structures. No definite periapical lucency is seen. There is no mass lesion or collection within the neck. There are no cervical lymph nodes meeting pathologic CT criteria. The parotid, submandibular, and sublingual glands and spaces are normalin appearance bilaterally. The left submandibular gland is slightlyasymmetrically larger than the right, and otherwise unremarkable in appearance. The nasopharynx and the structures of the hypopharynx and larynx are unremarkable in appearance. The pharyngeal mucosa appears intact. The thyroid gland is unremarkable. The major cervical vessels enhance normally with contrast. Limited images of the lung apices demonstrate no consolidation, pleural effusion, or pneumothorax. Opacities along the anterior and lateralaspects of the trachea may reflect retained secretions. There is reversal of the normal cervical lordosis. There are multilevel degenerative changes of the cervical spine, with posterior discosteophyte complexes and uncovertebral hypertrophy most pronounced at C4-5 andC5-6, resulting in mild to moderate neural foraminal stenosis bilaterally atthese levels. The orbits and globes are unremarkable. The paranasal sinuses are clear.The mastoid air cells are clear. Limited images of the brain parenchymademonstrate no intracranial hemorrhage, mass effect, or hydrocephalus. IMPRESSION: No cervical mass lesion, collection, lymphadenopathy, or other acuteabnormality identified. The left submandibular gland is slightly asymmetricallylarger than the right though otherwise unremarkable in appearance. ATTESTATION: I, Dr. Jossue Castellano as teaching physician, havereviewed the images for this case and if necessary edited the report originally createdby Dr. Clarence Dorman. us Hazel Maravilla DDS IMG CT XSPECIALTY ORDERABLES Final Result documented in this encounter Visit Diagnoses Diagnosis Sialoadenitis Inflammatory disorder of jaw Inflammatory conditions of jaw Sialoadenitis Inflammatory disorder of jaw Inflammatory conditions of jaw documented in this encounter Care Teams Wire Steward Relationship Specialty Start Date End Date Robert Smith MD [address] [place] [address] [address] PCP - General Internal Medicine 04/30/15 Hazel Maravilla DDS [address] [place] [address] [email or web address] artist 10/09/15 Mason Lester MD [address] [place] [address] Otolaryngology 05/06/18 documented as of this encounter Additional Source Comments The information contained in this document represents components of the legal health record. It is not the complete legal health record.[facility]
--- OUTSIDE RECORDS SUMMARY | 2024-11-15 16:35 | XMS_ITS | Encounter Summary ---
Author Organization [facility] Address [address] [facility] [address] [place] [address] Phone Care Team Providers Care Metal Sander Name Role Phone Robert Smith MD Primary Care Provider Hazel Maravilla DDS Unavailable [phone] Mason Lester MD Unavailable [phone] Encounter Details Date Type Department Care Team (Late st Contact Info) Description 06/24/2018 Prep for Surgery [facility] [address] [place] [address] [address] [place] [address] Hazel Maravilla, DDS [address] [place] [address] [email or web address] Lesion of oral mucosa (Primary Dx) Social History Tobacco Use Types Packs/Day Years [...] on file documented as of this encounter Visit Diagnoses Diagnosis Lesion of oral mucosa- Primary documented in this encounter Care Teams Metal Sander Relationship Specialty Start Date End Date Robert Smith MD [address] [place] [address] [place] [address] PCP - General Internal Medicine 04/30/15 Hazel Maravilla DDS [address] [place] [address] [email or web address] chief of harbor patrol 10/09/15 Mason Lester MD [address] [place] [address] [email or web address] Otolaryngology 05/06/18 documented as of this encounter Additional Source Comments The information contained in this document represents components of the legal health record. It is not the complete legal health record.[facility]
== END 2024-11-15 17:36 | disposition home or self-care (01) ==
LOC: HO.HMCHD 15:47
PROVIDERS: PCP Student in an Organized Health Care Education/Training Program; Visit Provider Student in an Organized Health Care Education/Training Program
DX: E78.5 Hyperlipidemia, unspecified (principal); K11.23 Chronic sialoadenitis; R06.02 Shortness of breath; Z12.2 Encounter for screening for malignant neoplasm of respiratory organs

== ENCOUNTER → 2024-11-15 15:46 | Outpatient (BNVA) | payer BC, SELFPAY | PROVIDERS: PCP Student in an Organized Health Care Education/Training Program; Visit Provider Student in an Organized Health Care Education/Training Program | DX: E78.5 Hyperlipidemia, unspecified (principal); K11.23 Chronic sialoadenitis; R06.02 Shortness of breath; Z87.891 Personal history of nicotine dependence; Z13.31 Encounter for screening for depression; Z13.39 Encounter for screening examination for other mental health and behavioral disorders | CPT/HCPCS: 96127 ==

== ENCOUNTER 2024-11-22 11:07 | Outpatient (REF) | payer BC, SELFPAY ==
--- OUTSIDE RECORDS SUMMARY | 2015-08-13 | XMS_ITS | Encounter Summary ---
Author Organization [facility] Address [address] [facility] [address] [place] [address] Phone Care Team Providers Care Slinger Sequins Name Role Phone Robert Smith MD Primary Care Provider Reason for Visit * MRI/CAT Scan - Closed Specialty Diagnoses / Procedures Referred By George t Referred To Contact Radiology Procedures CT Head Outside With Interpretation or Consult Luis A Muhammad DMD, MD [address] [place] [address] Phone: tel: fax: mailto:[email or web address] Referral ID Status Reason Start Date Expiration Date Visits Re quested Visits Authorized [id number] Closed 10/09/2015 10/08/2016 1 1 Encounter Details Date Type Department Care Team ([facility] st Contact Info) Description 08/13/2015 Hospital Encounter [facility] [address] [place] [address] Luis A Muhammad DMD, MD [address] [place] [phone] [email or web address] Social History Tobacco Use Types Packs/Day [...] EDT) 11/02/2015 11:0 8 AM EDT Narrative [facility] - 11/02/2015 11:16 AM EDT TECHNIQUE: Outside images of the CT HEAD This outside examination can not be read because: The imaging is absent or inadequate. Procedure Note Virtual Assistant For Advertisers, Dictation - 11/02/2015 TECHNIQUE: Outside images of the CT HEAD This outside examination can not be read because: The imaging is absent or inadequate. us Luis A Muhammad DMD, MD IMG OUTSIDE IMAGING W/ INTERPRETATION Final Result [facility] [address] [facility] [address] documented in this encounter Visit Diagnoses Not on filedocumented in this encounter Care Teams Slinger Sequins Relationship Specialty Start Date End Date Robert Smith MD [address] [place] [address] [place] [address] PCP - General Internal Medicine 2/8/16 documented as of this encounter Additional Source Comments The information contained in this document represents components of the legal health record. It is not the complete legal health record.[facility]
--- OUTSIDE RECORDS SUMMARY | 2015-08-13 00:15 | XMS_ITS | Encounter Summary ---
Author Organization [facility] Address [address] [address] [facility] [address] [place] [address] Phone Care Team Providers Care Lithographed Plate Inspector Name Role Phone Robert Smith MD Primary Care Provider Reason for Visit * MRI/CAT Scan - Closed Specialty Diagnoses / Procedures Referred By George t Referred To Contact Radiology Procedures CT Head Outside With Interpretation or Consult Luis A Muhammad DMD, MD [address] [place] [address] Phone: tel: fax: mailto:[email or web address] Referral ID Status Reason Start Date Expiration Date Visits Re quested Visits Authorized [id number] Closed 10/09/2015 10/08/2016 1 1 Encounter Details Date Type Department Care Team ([facility] st Contact Info) Description 08/13/2015 12:15 AM EDT Hospital Encounter [facility] [address] [place] [address] Luis A Muhammad DMD, MD [address] [place] [address] [email or web address] Social History Tobacco Use Types Packs/Day [...] imaging is absent or inadequate. Procedure Note Yard Foreman, Dictation - 11/02/2015 TECHNIQUE: Outside images of the CT HEAD This outside examination can not be read because: The imaging is absent or inadequate. us Luis A Muhammad DMD, MD IMG OUTSIDE IMAGING W/ INTERPRETATION Final Result [facility] [place] [facility] [address] [facility] [place] [address] documented in this encounter Visit Diagnoses Not on filedocumented in this encounter Care Teams Lithographed Plate Inspector Relationship Specialty Start Date End Date Robert Smith MD [address] [place] [address] [place] [address] PCP - General Internal Medicine 04/30/15 documented as of this encounter Additional Source Comments The information contained in this document represents components of the legal health record. It is not the complete legal health record.[facility]
--- OUTSIDE RECORDS SUMMARY | 2015-08-13 00:30 | XMS_ITS | Encounter Summary ---
Author Organization [facility] Address [address] [place] [address] Phone Care Team Providers Care Air Support Operations Operator Name Role Phone Robert Smith MD Primary Care Provider Reason for Visit * MRI/CAT Scan - Closed Specialty Diagnoses / Procedures Referred By George t Referred To Contact Radiology Procedures CT Head Outside With Interpretation or Consult Hazel Maravilla DDS [address] [place] [address] Phone: tel: fax: mailto:[email or web address] Referral ID Status Reason Start Date Expiration Date Visits Re quested Visits Authorized [id number] Closed 10/09/2015 10/08/2016 1 1 Encounter Details Date Type Department Care Team (Late st Contact Info) Description 08/13/2015 12:30 AM EDT Hospital Encounter [facility] General Imaging [address] [place] [address] Hazel Maravilla DDS [address] [place] [address] [email or web address] Social History Tobacco Use Types Packs/Day Years [...] AM EDT) 11/01/2015 3:56 PM EDT Narrative [facility] [place] [facility] - 11/02/2015 11:07 AM EDT TECHNIQUE: Outside images of the CT HEAD This outside examination can not be read because: The imaging is absent or inadequate. Procedure Note Mechanic Helper, Dictation - 11/02/2015 TECHNIQUE: Outside images of the CT HEAD This outside examination can not be read because: The imaging is absent or inadequate. us Hazel Maravilla DDS IMG OUTSIDE IMAGING W/ INTER PRETATION Final Result [facility] [address] [place] [address] documented in this encounter Visit Diagnoses Not on filedocumented in this encounter Care Teams Air Support Operations Operator Relationship Specialty Start Date End Date Robert Smith MD [address] [place] [address] Dr Yañez, LADY [address] PCP - General Internal Medicine 04/30/15 documented as of this encounter Additional Source Comments The information contained in this document represents components of the legal health record. It is not the complete legal health record.[facility]
--- OUTSIDE RECORDS SUMMARY | 2015-08-13 00:45 | XMS_ITS | Encounter Summary ---
Author Organization [facility] Address [address] [facility] [address] [place] [address] Phone Care Team Providers Care Ocean Lifeguard Specialist Name Role Phone Robert Smith MD Primary Care Provider Reason for Visit * MRI/CAT Scan - Closed Specialty Diagnoses / Procedures Referred By George t Referred To Contact Radiology Procedures CT Face Outside With Interpretation Or Consult Hazel Maravilla DDS [address] [place] [address] Phone: tel: fax: mailto:[email or web address] Referral ID Status Reason Start Date Expiration Date Visits Re quested Visits Authorized [id number] Closed 10/09/2015 10/08/2016 1 1 Encounter Details Date Type Department Care Team (Late st Contact Info) Description 08/13/2015 12:45 AM EDT Hospital Encounter [facility] General Imaging [address] [place] [address] Hazel Maravilla DDS [address] [place] [address] [email or web address] Social History Tobacco Use Types Packs/Day Years [...] AM EDT) 10/09/2015 4:18 PM EDT Impressions [facility] - 10/10/2015 10:58 AM EDT IMPRESSION: 1. Postsurgical changes of the left mandible as noted above without evidence of abscess/active infection or sialolithiasis. 2. Otherwise normal enhanced CT of the neck. No mass lesion, lymphadenopathy, fluid collection, or abnormal enhancement identified. Narrative [facility] [place] [facility] - 10/10/2015 10:58 AM EDT Reviewed [...] major vessels of the neck enhance normally. Legal Researcher, parapharyngeal, and retropharyngeal spaces appear normal. The [...] lung apices are clear. Procedure Note Jossue Casetllano MD - 10/10/[address] Iram [...] no abnormal dilation of thebilateral parotid or [place]'s ducts. No subcutaneous fat stranding or othersecondary signs to suggest underlying inflammatory or infectious process. The major vessels of the neck enhance normally. Legal Researcher, parapharyngeal, and retropharyngeal spaces appear normal.The thyroid [...] OUTSIDE IMAGING W/ INTER PRETATION Final Result [facility] [address] [facility] [place] [place] [address] documented in this encounter Visit Diagnoses Not on filedocumented in this encounter Care Teams Ocean Lifeguard Specialist Relationship Specialty Start Date End Date Robert Smith MD [address] [place] [address] [place] [address] PCP - General Internal Medicine 04/30/15 documented as of this encounter Additional Source Comments The information contained in this document represents components of the legal health record. It is not the complete legal health record.[facility]
--- OUTSIDE RECORDS SUMMARY | 2024-11-22 12:42 | XMS_ITS | Encounter Summary ---
Author Organization [facility] Address [address] [place] [address] Phone Care Team Providers Care Machine Burrer Name Role Phone Robert Smith MD Primary Care Provider Hazel Maravilla DDS Unavailable [phone] Mason Lester MD Unavailable [phone] Reason for Referral * MRI/CAT Scan - Closed Specialty Diagnoses / Procedures Referred By George killian Referred To Contact Radiology Diagnoses Sialoadenitis Inflammatory disorder of jaw Procedures CT Neck CT Face Hazel Maravilla DDS Phone: tel: fax: [email or web address] Referral ID Status Reason Start Date Expiration Date Visits Re quested Visits Authorized [id number] Closed 05/06/2018 07/05/2018 1 1 Encounter Details Date Type Department Care Team (Latest Contact Info) Description 05/09/2018 Ancillary Orders [facility] production line solderer [address] [place] [address], [address] Floor, [address] [place] [address] Hazel Maravilla DDS [address] [place] [address] [email or web address] Sialoadenitis; Inflammatory disorder of jaw Social History [...] jaw documented in this encounter Care Teams Machine Burrer Relationship Specialty Start Date End Date Robert Smith MD [address] [place] [address] [address] PCP - General Internal Medicine 04/30/15 Hazel Maravilla DDS [address] [place] [address] [email or web address] production line solderer 10/09/15 Mason Lester MD [address] [place] [address] Otolaryngology 05/06/18 documented as of this encounter Additional Source Comments The information contained in this document represents components of the legal health record. It is not the complete legal health record.[facility]
--- OUTSIDE RECORDS SUMMARY | 2024-11-22 12:42 | XMS_ITS | Clinical Summary ---
Author Organization [facility] Address [address] [facility] [address] [place] [address] Phone Care Team Providers Care Viscosity Tester Name Role Phone Robert Smith MD Primary Care Provider Hazel Maravilla DDS Unavailable [phone] Mason Lester MD Unavailable [phone] Allergies Active Allergy Reactions Criticality Noted Date [...] 2023 07/14/2020 Adult Td,Tdap Booster 10/19/2024 10/19/2014 INFLUENZA VACCINE (#1) 2024 RSV VACCINE (1 - 1-dose 75+ series) [...] topic Medical Devices Not on file Insurance [address] [place], [place] [id number] POS [employer] POS [facility] HMO POS [facility] HMO [address] [place] [address] [address] [place] [address] HMO POS Care Teams Viscosity Tester Relationship Specialty Start Date End Date Robert Smith MD [address] [place] [address] Dr [place] PCP - General Internal Medicine 04/30/15 Hazel Maravilla DDS [address] [place] [address] [email or web address] hand [email or web address] 10/09/15 Mason Lester MD [address] [place], [place] [id number] [email or web address] Otolaryngology 05/06/18 Additional Source Comments The information contained in this document represents components of the legal health record. It is not the complete legal health record.[facility]
--- OUTSIDE RECORDS SUMMARY | 2024-11-22 12:42 | XMS_ITS | Encounter Summary ---
Author Organization [facility] Address [address] [facility] [address] [place] [address] Phone Care Team Providers Care General Foundry Worker Name Role Phone Robert Smith MD Primary Care Provider Hazel Maravilla DDS Unavailable [phone] Mason Lester MD Unavailable [phone] Encounter Details Date Type Department Care Team (Late st Contact Info) Description 06/24/2018 Prep for Surgery [facility] [address] [place] [address] [address] [place] [address] Hazel Maravilla, DDS [address] [place] [address] [email or web address] Lesion of oral mucosa (Primary Dx) Social [...] Primary documented in this encounter Care Teams General Foundry Worker Relationship Specialty Start Date End Date Robert Smith MD [address] [place] [address] [place] [address] PCP - General Internal Medicine 04/30/15 Hazel Maravilla DDS [address] [place] [address] [email or web address] civil engineering teacher 10/09/15 Mason Lester MD [address] [place] [address] [email or web address] Otolaryngology 05/06/18 documented as of this encounter Additional Source Comments The information contained in this document represents components of the legal health record. It is not the complete legal health record.[facility]
--- OUTSIDE RECORDS SUMMARY | 2024-11-22 12:42 | XMS_ITS | Clinical Summary ---
Author Organization [facility] Address [address] [place] [address] Care Team Providers Care Derrick Follower Name Role Phone Ash Smith MD Primary Care Provider [phone] Social History Tobacco Use Types Packs/Day Years [...] COVID-19 Vaccine ( - 2023-2 5 season) 2024 Influenza Vaccine (#1) 2024 HPV Vaccines Aged [...] ANTHEM - OUT OF STATE Care Teams Derrick Follower Relationship Specialty Start Date End Date Ash Smith MD [address] [place] [address] PCP - General 08/27/17
--- OUTSIDE RECORDS SUMMARY | 2024-11-22 12:42 | XMS_ITS | Patient Health Record ---
Author Organization [facility] Address [address] [place] [address] Care Team Providers Care Intravenous Therapy Nurse Name Role Phone Luis (RETIRED) Robert CARROLL Primary Care Provide Paul Doty Jr Unavailable Allergies Allergen (clinical drug ingredient) Drug/Non Drug Allergy documented on EMR Reaction Allergy Type Onset Date Status ciprofloxacin Cipro Unknown Drug Allergy Act carter red shelll fish (uncoded) Unknown Allergy Active Results Component Value Reference Range Notes Pathology Reviewed date:02/04/2024 09:12:40 AM Interpretation: Performing Lab:[facility], [address] [place] [phone] Notes/Report: Reason For Referral No Information Medications [...] Problem Status W/U Status Risk Notes Problem 734536861 Colon cancer screening (Z12.11) Active confirmed Problem 935942789 Abdominal bloating (R14.0) Active confirmed Problem 64281539 Hemorrhoids, unspecified hemorrhoid type (K64.9) Active confirmed Vital Signs Blood pressure diastolic 00 mm Hg 12/10/2023 Height 6 ft in 12/10/2023 Blood pressure systolic 00 mm Hg 12/10/2023 Weight 223 lbs 12/10/2023 BMI 30.24 kg/m2 12/10/2023 Encounters Encounter Location Date Provider Diagnosis [facility] [address] [place] [phone] 01/27/2024 Paul Jones Jr Colon cancer screening Z12.11 and Colon polyps K63.5 [facility] [address] [place] [phone] 12/10/2023 Paul Jones Jr Colon cancer screening Z12.11 ; Abdominal bloating R14.0 and Hemorrhoids, unspecified hemorrhoid type K64.9 [facility] [address] [place] [phone] 01/11/2024 Paul Jones Jr [facility] [address] [place] [phone] 02/04/2024 Paul Jones Jr Assessments Encounter Date Diagnosis (ICD Code) Assessment Notes Treatment Notes Treatment Clinical Notes Section Notes 01/27/2024 Colon cancer screening (ICD-10 - Z12.11) 01/27/2024 Colon polyps (ICD-10 - K63.5) 12/10/2023 Colon cancer screening (ICD-10 - Z12.11) Colonoscopy material was printed We discussed abdominal bloating today. We discussed diet, lifestyle modifications, and weight management. We recommended use bnzn-hyj-uzswyya anti-gas medications. We discussed the care treatment of hemorrhoids today. He can use vlva-fhp-etcqvbd hydrocortisone cream as needed for this. He is due for colon cancer screening. This will be arranged. He understands risks and benefits and agrees to proceed. 12/10/2023 Abdominal bloating (ICD-10 - R14.0) We discussed abdominal bloating today. We discussed diet, lifestyle modifications, and weight management. We recommended use bdnk-xsv-vnycmms anti-gas medications. We discussed the care treatment of hemorrhoids today. He can use gtfr-xeb-pqxlvoo hydrocortisone cream as needed for this. He is due for colon cancer screening. This will be arranged. He understands risks and benefits and agrees to proceed. 12/10/2023 Hemorrhoids, unspecified hemorrhoid type (ICD-10 - K64.9) We discussed abdominal bloating today. We discussed diet, lifestyle modifications, and weight management. We recommended use czpt-khr-otfawki anti-gas medications. We discussed the care treatment of hemorrhoids today. He can use nazs-fnc-qgwtjky hydrocortisone cream as needed for this. He is due for colon cancer screening. This will be arranged. He understands risks and benefits and agrees to proceed. Plan Of Treatment Future Test Test Name Order Date COLONOSCOPY 12/10/2023 Insurance Providers Payer Name Payer Address Payer Phone Subscriber Number Group Number Insured Name Patient Relationship to Insured Coverage Start Date Coverage End Date [facility] [employer] [address] [place] [address] [id number] NATHALIE PHILLIPS Self - patient is the insured Medical (General) History Medical History History ICD Code Hyperlipidemia Gastroesophageal reflux disease, EGD 10/21 2, negative for H. pylori. Colonoscopy 11/01. Hyperplastic polyps x2 . Surgical History Surgery Date(Month/Year) dental implant surgery 2018
--- OUTSIDE RECORDS SUMMARY | 2024-11-22 12:42 | XMS_ITS | Clinical Summary ---
Author Organization [facility] Address [address] [place] [address] Care Team Providers Care Instructor Business Education Name Role Phone Robert Smith MD Primary Care Provider [phone] Social History Tobacco Use Types Packs/Day Years [...] 04/22/2023 Social Influencers of Health Screening 04/22/2023 Depression Screening 03/23/2024 COVID-19 Vaccine ( - 2023-2 5 season) 2024 Influenza Vaccine (#1) 2024 RSV Immunization Adult [...] age to complete this topic Care Teams Instructor Business Education Relationship Specialty Start Date End Date Robert Smith MD [address] [place] [address] Dr Laverne [place] PCP - General 05/07/22
[2024-11-22 13:06] LABS: Hemoglobin A1C 131.0364 umol/L; Total Hemoglobin (HGBA1C) 3968.0223 umol/L
[2024-11-22 13:35] LABS: Cholesterol 171 mg/dL (<200); HDL Cholesterol 39 mg/dL (>40); Triglycerides 92 mg/dL (<150)
== END 2024-11-22 11:08 | disposition home or self-care (01) ==
LOC: HO.LAB 11:07
PROVIDERS: PCP Internal Medicine; Visit Provider Student in an Organized Health Care Education/Training Program
DX: R06.02 Shortness of breath (principal); E78.5 Hyperlipidemia, unspecified; Z13.1 Encounter for screening for diabetes mellitus
CPT/HCPCS: 36415; 80061; 83036; 83880; 84443

== ENCOUNTER → 2025-01-04 08:42 | Outpatient (REF) | payer BC, SELFPAY ==
--- OUTSIDE RECORDS SUMMARY | 2015-08-13 | XMS_ITS | Encounter Summary ---
Author Organization [facility] Address [address] [place] [address] Phone Care Team Providers Care Electrical Tech Name Role Phone Robert Smith MD Primary Care Provider Reason for Visit * MRI/CAT Scan - Closed Specialty Diagnoses / Procedures Referred By George t Referred To Contact Radiology Procedures CT Head Outside With Interpretation or Consult Luis A Muhammad DMD, MD [address] [place] [address] [place] [address] Phone: tel: fax: mailto:[email or web address] Referral ID Status Reason Start Date Expiration Date Visits Re quested Visits Authorized [id number] Closed 10/09/2015 10/08/2016 1 1 Encounter Details Date Type Department Care Team ([facility] st Contact Info) Description 08/13/2015 Hospital Encounter [facility] [address] [place] [address] Luis A Muhammad DMD, MD [address] [place] [address] [place] [address] [email or web address] Social History Tobacco Use Types Packs/Day Years Used Date Smoking Tobacco: Every Day Cigarettes 0.3 33.7 Started: 04/08/1991 Smokeless Tobacco: Never Alcohol Use [...] EDT) 11/02/2015 11:0 8 AM EDT Narrative [facility] - 11/02/2015 11:16 AM EDT TECHNIQUE: Outside images of the CT HEAD This outside examination can not be read because: The imaging is absent or inadequate. Procedure Note Mobile Sales Assistant, Dictation - 11/02/2015 TECHNIQUE: Outside images of the CT HEAD This outside examination can not be read because: The imaging is absent or inadequate. us Luis A Muhammad DMD, MD IMG OUTSIDE IMAGING W/ INTERPRETATION Final Result [facility] [address] [facility] [place] [address] documented in this encounter Visit Diagnoses Not on filedocumented in this encounter Care Teams Electrical Tech Relationship Specialty Start Date End Date Robert Smith MD [address] [place] [address] [place] [address] PCP - General Internal Medicine 04/30/15 documented as of this encounter Additional Source Comments The information contained in this document represents components of the legal health record. It is not the complete legal health record.[facility]
--- OUTSIDE RECORDS SUMMARY | 2015-08-13 00:15 | XMS_ITS | Encounter Summary ---
Author Organization [facility] Address [address] [facility] [address] [place] [address] Phone Care Team Providers Care Manager Software Name Role Phone Robert Smith MD Primary Care Provider Reason for Visit * MRI/CAT Scan - Closed Specialty Diagnoses / Procedures Referred By George t Referred To Contact Radiology Procedures CT Head Outside With Interpretation or Consult Luis A Muhammad DMD, MD [address] [place] [address] Phone: tel: fax: mailto:[email or web address] Referral ID Status Reason Start Date Expiration Date Visits Re quested Visits Authorized [id number] Closed 10/09/2015 10/08/2016 1 1 Encounter Details Date Type Department Care Team ([facility] st Contact Info) Description 08/13/2015 12:15 AM EDT Hospital Encounter [facility] [address] [place] [address] Luis A Muhammad DMD, MD [address] [place] [address] [email or web address] Social History Tobacco Use Types [...] AM EDT) 11/01/2015 3:55 PM EDT Narrative [facility] [place] [place] [facility] - 11/02/2015 11:16 AM EDT TECHNIQUE: Outside images of the CT HEAD This outside examination can not be read because: The imaging is absent or inadequate. Procedure Note Energy Management Specialist, Dictation - 11/02/2015 TECHNIQUE: Outside images of the CT HEAD This outside examination can not be read because: The imaging is absent or inadequate. us Luis A Muhammad DMD, MD IMG OUTSIDE IMAGING W/ INTERPRETATION Final Result [facility] [place] [place] [facility] [address] [facility] [place] [address] documented in this encounter Visit Diagnoses Not on filedocumented in this encounter Care Teams Manager Software Relationship Specialty Start Date End Date Robert Smith MD [address] [place] [address] [place] [address] PCP - General Internal Medicine 04/30/15 documented as of this encounter Additional Source Comments The information contained in this document represents components of the legal health record. It is not the complete legal health record.[facility]
--- OUTSIDE RECORDS SUMMARY | 2015-08-13 00:30 | XMS_ITS | Encounter Summary ---
Author Organization [facility] Address [address] [place] [address] Phone Care Team Providers Care Net C Developer Name Role Phone Robert Smith MD Primary Care Provider Reason for Visit * MRI/CAT Scan - Closed Specialty Diagnoses / Procedures Referred By George t Referred To Contact Radiology Procedures CT Head Outside With Interpretation or Consult Hazel Maravilla DDS [address] [place] [address] Phone: tel: fax: mailto:[email or web address] Referral ID Status Reason Start Date Expiration Date Visits Re quested Visits Authorized [id number] Closed 10/09/2015 10/08/2016 1 1 Encounter Details Date Type Department Care Team ([facility] Contact Info) Description 08/13/2015 12:30 AM EDT Hospital Encounter [facility] [address] [place] [address] Hazel Maravilla DDS [address] [place] [address] [email or web address] Social History Tobacco Use Types Packs/Day Years [...] AM EDT) 11/01/2015 3:56 PM EDT Narrative [facility] [place] [facility] - 11/02/2015 11:07 AM EDT TECHNIQUE: Outside images of the CT HEAD This outside examination can not be read because: The imaging is absent or inadequate. Procedure Note Homogenizer Operator, Dictation - 11/02/2015 TECHNIQUE: Outside images of the CT HEAD This outside examination can not be read because: The imaging is absent or inadequate. us Hazel Maravilla DDS IMG OUTSIDE IMAGING W/ INTER PRETATION Final Result [facility] [place] [address] [facility] [place] [address] documented in this encounter Visit Diagnoses Not on filedocumented in this encounter Care Teams Net C Developer Relationship Specialty Start Date End Date Robert Smith MD [address] [place] [address] [place] [address] PCP - General Internal Medicine 04/30/15 documented as of this encounter Additional Source Comments The information contained in this document represents components of the legal health record. It is not the complete legal health record.[facility]
--- OUTSIDE RECORDS SUMMARY | 2015-08-13 00:45 | XMS_ITS | Encounter Summary ---
Author Organization [facility] Address [address] [place] [address] Phone Care Team Providers Care Service Developer Name Role Phone Robert Smith MD Primary Care Provider Reason for Visit * MRI/CAT Scan - Closed Specialty Diagnoses / Procedures Referred By George t Referred To Contact Radiology Procedures CT Face Outside With Interpretation Or Consult Hazel Maravilla DDS [address] [place] [address] Phone: tel: fax: mailto:[email or web address] Referral ID Status Reason Start Date Expiration Date Visits Re quested Visits Authorized [id number] Closed 10/09/2015 10/08/2016 1 1 Encounter Details Date Type Department Care Team ([facility] Contact Info) Description 08/13/2015 12:45 AM EDT [facility] En[facility] [address] [place] [address] Hazel Maravilla DDS [address] [place] [address] [email or web address] Social History Tobacco Use Types Packs/Day Years [...] AM EDT) 10/09/2015 4:18 PM EDT Impressions [facility] - 10/10/2015 10:58 AM EDT IMPRESSION: 1. Postsurgical changes of the left mandible as noted above without evidence of abscess/active infection or sialolithiasis. 2. Otherwise normal enhanced CT of the neck. No mass lesion, lymphadenopathy, fluid collection, or abnormal enhancement identified. Narrative [facility] - 10/10/2015 10:58 AM EDT Reviewed [...] abnormal dilation of the bilateral parotid or Sheridan's ducts. No subcutaneous fat stranding or other secondary signs to suggest underlying inflammatory or infectious process. The major vessels of the neck enhance normally. Spa Coordinator, parapharyngeal, and retropharyngeal spaces appear normal. The [...] no abnormal dilation of thebilateral parotid or Sheridan's ducts. No subcutaneous fat stranding or othersecondary signs to suggest underlying inflammatory or infectious process. The major vessels of the neck enhance normally. Spa Coordinator, parapharyngeal, and retropharyngeal spaces appear normal.The thyroid [...] OUTSIDE IMAGING W/ INTER PRETATION Final Result [facility] [place] [facility] [address] [place] [address] documented in this encounter Visit Diagnoses Not on filedocumented in this encounter Care Teams Service Developer Relationship Specialty Start Date End Date Robert Smith MD [address] [place] [address] [place] [address] PCP - General Internal Medicine 04/30/15 documented as of this encounter Additional Source Comments The information contained in this document represents components of the legal health record. It is not the complete legal health record.[facility]
--- OUTSIDE RECORDS SUMMARY | 2023-08-21 08:30 | XMS_ITS ---
Author Organization [facility] Address [address] [place] [address] Care Team Providers Care Digital Content Manager Name Role Phone [facility], [facility] [phone] REASON FOR VISIT f/up skin infection Encounters Encounter Location Date Provider Diagnosis [facility] [address] [place] [address] 08/21/2023 [facility] Plan Of Treatment No Information Progress Notes * Román RUGGIERODOB:1960 (64 yo M)Acc No.[id number]:08/21/2023 Progress Notes Patient: Román RASHID Provider: Sharmila AGUAYO [facility] :1960 A ge:62 Y S ex:Male Date:08/21/2023 Phone: Address:[address], [place] Subjective: * Chief Complaints: * 1 . F/up skin infection. * Medical History: Objective: * Vitals: Assessment: Plan: * Treatment: * Billing Information: * Visit Code: * Procedure Codes: * Electronic signature of [facility] on 01/04/2025 at 09:15 AM EDT Sign off status: Pending * Provider: Sharmila AGUAYO [facility] Date: 0 08/21/2023 Generated for Regla enamorado/Carmel/eTkostasmitting on: 1 09:15 AM EDT
--- OUTSIDE RECORDS SUMMARY | 2023-11-28 06:45 | XMS_ITS ---
Author Organization [facility] Address [address] [place] [address] Care Team Providers Care Jar Filler Name Role Phone [facility] Unavailable [phone] Allergies No Known Allergies REASON FOR VISIT [...] Temperature Encounters Encounter Location Date Provider Diagnosis [facility] [address] [place] [address] 11/28/2023 [facility] Assessments Encounter Date Diagnosis (ICD [...] Notes * Hermilo RUGGIERO:1960 (64 yo M)Acc No.[id number]:11/28/2023 Patient: Román RASHID Provider: Sharmila AGUAYO HELIX :1960 A ge:63 Y S ex:Male Date:11/28/2023 Phone: Address:[address], [phone] Subjective: * Chief Complaints: * 1 . Prescription Refill. 2. Patient requesting service from promotional campaign pmax_rx_ftrx_top_meds. * HPI: T [facility] Complaint History: Reason for visit: Medication RequestRequested: Keflex, 500mg, 10 days Reason: Skin infection How Lon minths Side Effects: Prescriber: Dr Gonzalez. Tucking Machine Operator Per pt: I cant loacte my Keeflex [...] Procedure Codes: * Electronic signature of [facility] on 01/04/2025 at 09:16 AM EDT Sign off status: Pending * Provider: Sharmila LAWRENCE Date: 0 11/28/2023 Generated for Regla enamorado/Carmel/Debbie on: 1 09:16 AM EDT History and Physical Notes * Physical Examination Category Sub-Category Detail Notes Section Note s Asynchronous vi sit, unable to assess
--- OUTSIDE RECORDS SUMMARY | 2024-01-12 06:00 | XMS_ITS ---
Author Organization [facility] Address [address] [place] [address] Care Team Providers Care Purchasing Internship Name Role Phone Luis (RETIRED) Robert CARROLL Primary Care Provide r Paul Doe Jr REASON FOR VISIT screening Encounters Encounter Location Date Provider Diagnosis [facility] Out[facility] [address] [place], [place] [phone] 01/12/2024 Paul Jones Jr Plan Of Treatment No Information Progress Notes * NATHALIE PHILLIPSDOB:1960 (64 yo M)Acc No.[id number]:01/12/2024 COLON WITH MAC Patient: NATHALIE RASHID Provider: Teo Jones MD :1960 A ge:63 Y S ex:Male Date:01/12/2024 Address:[address] [place], [place] [id number] Pcp:Robert Smith (RETIRED )MD Subjective: * Chief Complaints: * 1 . Screening. * Medical History: Objective: * Vitals: Assessment: Plan: * Treatment: * * The named appointment provid er may or may not be the originator of this progress note, and it is not deemed complete until electronically signed by the appointment provider. Sign off status: Pending * Provider: Teo Jones MD Date: Generated for Printi ng/Faxing/eTransmitting on: 09:15 AM EDT
--- OUTSIDE RECORDS SUMMARY | 2024-01-27 09:50 | XMS_ITS ---
Author Organization [facility] Address [address] [place] [address] Care Team Providers Care National Basketball [employer] Scout Name Role Phone Luis (RETIRED) Robert CARROLL Primary Care Provide r Paul Doe Jr [phone] REASON FOR VISIT screening Encounters Encounter Location Date Provider Diagnosis [facility] [address] [place] [phone] 01/27/2024 Paul Jones Jr Colon cancer screening Z12.11 and Colon polyps K63.5 Assessments Encounter Date Diagnosis (ICD Code) Assessment Notes Treatment Notes Treatment Clinical Notes Section Notes 01/27/2024 Colon cancer screening (ICD-10 - Z12.11) 01/27/2024 Colon polyps (ICD-10 - K63.5) Plan Of Treatment No Information Progress Notes * NATHALIE PHILLIPSDOB:1960 (64 yo M)Acc No.[id number]:01/27/2024 COLON WITH MAC Patient: NATHALIE RASHID Provider: Teo Jones MD :1960 A ge:63 Y S ex:Male Date:01/27/2024 Address:[address] [place] [address] [facility] Pcp:Robert Smith (RETIRED )MD Subjective: * Chief Complaints: * 1 . Screening. * Medical History: Objective: * Vitals: Assessment: * Assessment: 1. C olon cancer screening - Z12.11 (Primary) 2 . C olon polyps - K63.5? Plan: * Treatment: * Procedure Codes: 4 5385 LESION REMOVAL COLONOSCOPY, 48851 COLONOSCOPY AND BIOPSY, Modifiers: 59 , 0529F INTRVL 3+YRS PTS CLNSCP DOCD * * The named appointment provid er may or may not be the originator of this progress note, and it is not deemed complete until electronically signed by the appointment provider. Sign off status: Pending * Provider: Teo Jones MD Date: 1 03/28/2023 Generated for Regla enamorado/Carmel/Aylinitting on: 09:17 AM EDT
--- NOTE | 2025-01-04 08:47 | CA_ITS ---
Transthoracic Echocardiogram Patient (Last, First, Middle): Román Ruggiero, Gender: M Date of : 1960 Age: 64 Procedure Date: 01/04/2025 Procedure Type: Transthoracic Echocardiogram Location: OP Height: 182.88 cm Weight: 102.97 kg BSA: 2.25 m2 Heart Rate: bpm BP: 124 / 80 mmHg Tick Inspector: Referring MD: Sanjay Dobbs MD Metal Plater: Marlo Pleitez MD Symptoms: R06.02 - Shortness of breath Study Quality: Adequate ECG Rhythm: Sinus Conclusions: - 1. Normal LV ejection fraction of 60 65% with grade 1 diastolic dysfunction 2. Normal cardiac valvular Dopplers 3. Mildly dilated ascending aorta 3.9 cm 4. Normal RV systolic pressure 5. No gross pericardial effusion Findings Left Ventricle Normal left ventricular size, thickness, and systolic function. The visually estimated ejection fraction is between 60-65%. Spectral Doppler is indicative of an impaired relaxation filling pattern. E/E prime ratio is <8, consistent with normal filling pressures. Right Ventricle Normal right ventricular cavity size and systolic function. Atria The left atrium is likely dilated. There is no evidence of interatrial shunt. The right atrium is normal in size. Aortic Valve Normal aortic valve structure and function. There is no aortic valve stenosis. There is no aortic valve regurgitation. Mitral Valve Normal mitral valve structure and function. There is trace mitral valve regurgitation. There is no mitral valve stenosis. Pulmonic Valve The pulmonic valve is likely normal. Tricuspid Valve Normal tricuspid valve structure. There is trace tricuspid valve regurgitation. The right ventricular systolic pressure is normal. The right ventricular systolic pressure is 23 mmHg. Normal right atrial pressure. There is no evidence of pulmonary hypertension. Great Vessels The pulmonary artery was not well visualized. There is mild dilatation of the ascending aorta measuring 3.90 cm. Venous The inferior vena cava is normal in size and collapses greater than 50% with inspiration. Pericardium/Pleural There is no evidence of pericardial effusion. Prior Study Comparison No prior study available for comparison. Measurements 2D Linear Measurements IVSd: 1.07 0.6-0.9/0.6-1.0 cm LVIDd: 4.97 3.9-5.3/4.2-5.9 cm LVIDd Index: 2.21 2.4-3.2/2.2-3.1 cm/m2 LVIDs: 2.96 2.0-3.6 cm LVPWd: 1.04 0.7-1.1 cm Ao Root: 4.20 2.1-3.5 cm LA Diam: 4.50 2.7-3.8/3.0-4.0 cm LAIDs Index: 2.00 1.5-2.3 cm/m2 LV Mass: 254.07 67-162/88-224 g LV Mass Index: 112.92 43-95/49-115 g/m2 LVOT Diam: 2.60 3.0+(-)1.3 cm 2D Systolic Function EF 4C: 57.90 >55% EF 2C: 67.10 >55% EF BiP: 61.10 >55% Mitral Valve MV Pk E: 0.54 MV PK A: 0.70 MV Decel Time: 279.00 E/A: 0.80 E'Lateral: 6.20 E'Medial: 8.16 E/E' Med: 6.60 E/E' Lat: 8.60 PHT: 82.00 MVA PHT: 2.68 Decel Lamb: 1.92 Aortic Valve AoV Pk Edy: 1.29 AoV Mn Edy: 0.77 AoV VTI: 0.29 AoV Pk Grad: 7.00 Aov Mn Grad: 3.00 TOAN Cont.VTI: 3.50 LVOT LVOT Pk Edy: 0.93 LVOT Mn Edy: 0.54 LVOT VTI: 0.19 LVOT Pk Grad: 3.00 LVOT Mn Grad: 1.00 LVOT Diam: 2.60 LVOT Area: 5.31 Diastolic Function MV Pk E: 0.54 MV Pk A: 0.70 E/A: 0.80 E'Medial: 8.16 E/E' Med: 6.60 E' Laterial: 6.20 E/E' Lat: 8.60 Right Ventricle TAPSE (mm): 23.00 TVS' Edy: 13.00 Tricuspid Valve TR Pk Edy: 2.22 TR Pk Grad: 20.00 RA Press: 3.00 RVSP: 23.00 Great Vessels Aorta Ao Root-2D: 4.20 2.0-3.7 cm Ao Asc: 3.90 2.1-3.4 cm Pulmonary Veins Pulm Vein S/D 1.60 Pulmonary Valve PV Pk Edy: 0.84 Peak PV Grad: 3.00 Updated in Other Vendor System with Status of Final Marlo Pleitez MD electronically signed on 01/04/2025 2:07:55 PM with status of Final
--- OUTSIDE RECORDS SUMMARY | 2025-01-04 09:15 | XMS_ITS | Encounter Summary ---
Author Organization [facility] Address [address] [place] [address] Phone Care Team Providers Care Staff Appraiser Name Role Phone Robert Smith MD Primary Care Provider Hazel Maravilla DDS Unavailable [phone] Mason Lester MD Unavailable [phone] Encounter Details Date Type Department Care Team (Late st Contact Info) Description 06/24/2018 Prep for Surgery [facility] [address] [place] [address] Hazel Maravilla, DDS [address] [place] [address] [email or web address] Lesion of oral mucosa (Primary Dx) Social [...] Primary documented in this encounter Care Teams Staff Appraiser Relationship Specialty Start Date End Date Robert Smith MD [address] [place] [address] [address] [place] [address] PCP - General Internal Medicine 04/30/15 aHzel Maravilla DDS [address] [place] [address] [email or web address] 10/09/15 Mason Lester MD [address] [place] [address] [email or web address] Otolaryngology 05/06/18 documented as of this encounter Additional Source Comments The information contained in this document represents components of the legal health record. It is not the complete legal health record.[facility]
--- OUTSIDE RECORDS SUMMARY | 2025-01-04 09:15 | XMS_ITS | Clinical Summary ---
Author Organization [facility] Address [address] [place] [address] Care Team Providers Care Transportation Sales Consultant Name Role Phone Ash Smith MD Primary Care Provider [phone] Social History Tobacco Use Types Packs/Day Years [...] ANTHEM - OUT OF STATE Care Teams Transportation Sales Consultant Relationship Specialty Start Date End Date Ash Smith MD [address] [place] [address] PCP - General 08/27/17
--- OUTSIDE RECORDS SUMMARY | 2025-01-04 09:15 | XMS_ITS | Clinical Summary ---
Author Organization [facility] Address [address] [place] [address] Phone Care Team Providers Care Bulk Plant Operator Name Role Phone Robert Smith MD Primary Care Provider Hazel Maravilla DDS Unavailable [phone] Mason Lester MD Unavailable [phone] Allergies Active Allergy Reactions Criticality Noted Date [...] 2006 ZOSTER VACCINES (1 of 2) 10/21/2011 Adult Td,Tdap Booster 10/19/2024 10/19/2014 INFLUENZA VACCINE (#1) 2024 COVID-19 VACCINE (2 - 2024-2 6 season) 2024 07/14/2020 RSV VACCINE (1 - 1-dose 75+ series) [...] topic Medical Devices Not on file Insurance [address] [place], [place] [id number] [facility] POS [facility] [place] [address] [place], [place] [id number] [place] [address] HMO POS Care Teams Bulk Plant Operator Relationship Specialty Start Date End Date Robert Smith MD [address] [place] [address] Dr LOVETT [place], [place] PCP - General Internal Medicine 04/30/15 Hazel Maravilla DDS [address] [place] [address] [email or web address] cable installation technician 10/09/15 Mason Lester MD [address] [place] [address] [email or web address] Otolaryngology 05/06/18 Additional Source Comments The information contained in this document represents components of the legal health record. It is not the complete legal health record.[facility]
--- OUTSIDE RECORDS SUMMARY | 2025-01-04 09:16 | XMS_ITS | Encounter Summary ---
Author Organization [facility] Address [address] [place] [address] Phone Care Team Providers Care Manager Technical Name Role Phone Robert Smith MD Primary Care Provider Hazel Maravilla DDS Unavailable [phone] Mason Lester MD Unavailable [phone] Reason for Referral * MRI/CAT Scan - Closed Specialty Diagnoses / Procedures Referred By George killian Referred To Contact Radiology Diagnoses Sialoadenitis Inflammatory disorder of jaw Procedures CT Neck CT Face Hazel Maravilla DDS Phone: tel: fax: [email or web address] Referral ID Status Reason Start Date Expiration Date Visits Re quested Visits Authorized [id number] Closed 05/06/2018 07/05/2018 1 1 Encounter Details Date Type Department Care Team (Latest Contact Info) Description 05/09/2018 Ancillary Orders [facility] [place] [facility] [place] [address] [place] [address], [address] Floor, [address] [place] [address] Hazel Maravilla DDS [address] [place], [place] [address] [place] [address] [email or web address] Sialoadenitis; Inflammatory disorder of jaw Social History [...] the report originally createdby Dr. Clarence Dorman. Hazel Maravilla DDS IMG CT XSPECIALTY ORDERABLES Final Result documented in this encounter Visit Diagnoses Diagnosis Sialoadenitis Inflammatory disorder of jaw Inflammatory conditions of jaw Sialoadenitis Inflammatory disorder of jaw Inflammatory conditions of jaw documented in this encounter Care Teams Manager Technical Relationship Specialty Start Date End Date Robert Smith MD [address] [place] [address] [place] [address] PCP - General Internal Medicine 04/30/15 Hazel Maravilla DDS [address] [place] [address] [email or web address] 10/09/15 Mason Lester MD [address] [place] [address] [email or web address] Otolaryngology 05/06/18 documented as of this encounter Additional Source Comments The information contained in this document represents components of the legal health record. It is not the complete legal health record.[facility]
--- OUTSIDE RECORDS SUMMARY | 2025-01-04 09:16 | XMS_ITS | Patient Health Record ---
Author Organization [facility] Address [address] [place] [address] Care Team Providers Care Ball Worker Name Role Phone FLORENTIN PORTER Unavailable Allergies No Known Allergies Reason For Referral No Information Medications Medication SIG (Take, Route, Frequency, Duration) Notes Start Date End Date Status Ibuprofen 800 MG Oral; Duration: 5 Days Active Clindamycin HCl 300 MG Oral; Duration: 5 Days Active Cephalexin 500 MG 1 capsule Orally francisco ry 6 hrs; Duration: 7 days 08/14/2023 Active Medrol 4 MG as directed Orally O nce a day; Duration: 6 days 05/10/2023 Active Fluticasone Propionate 50 MCG/ACT SPRAY 1 SPRAY INTO EACH NOSTRIL TWO TIMES A DAY IF NEEDED Nasal; Duration: 30 Days Active Cefpodoxime Proxetil 200 MG Oral; Duration: 10 Days Active Chlorhexidine Gluconate 0.12 % Mouth/Throat; Duration: 15 Days Active Amoxicillin-Pot Clavulanate 875-125 MG Oral; Duration: 7 Days Activ e Cephalexin 500 MG Oral; Duration: 30 Days Active Clarithromycin 500 MG 1 tablet Orally ev aubrey 12 hrs. Take with meals.; Duration: 7 days 12/25/2024 Active Social History Tobacco Use: Social History Observation Description Date Details (start date - stop date) Current Smoker NA - NA Tobacco Control (Standard) Question Answer Notes Tobacco use: Current smoker Problems Problem Type SNOMED Code ICD Code Onset Dates Problem Status W/U Status Risk Notes Problem Recurrent sinusitis (801449735) Recurrent sinusitis (J32.9) Active confirmed Vital Signs Height 72 in 12/25/2024 Weight 225 lbs 12/25/2024 BMI 30.52 kg/m2 12/25/2024 Encounters Encounter Location Date Provider Diagnosis [facility] [address] [place] [address] 12/25/2024 FLORENTIN PORTER Recurrent sinusitis J32.9 Assessments Encounter Date Diagnosis (ICD Code) Assessment Notes Treatment Notes Treatment Clinical Notes Section Notes 12/25/2024 Recurrent sinusitis (ICD-10 - J32.9) TREATMENT PLAN Patient appears to have symptoms most consistent with rhinosinusitis or nasopharyngitis. The most likely etiology for initial trigger is viral or allergic. The duration of symptoms and progression of symptoms are what may trigger us to treat with antibiotics instead of anti-allergy and nasal steroids. First, if symptoms present for < 5 days, make sure covid and flu are negative by obtaining those tests ordered today. If positive, we can discuss paxlovid or tamiflu if indicated. CAUTIONTaking antibiotics for a viral infection or allergies is not recommended. Antibiotics are medications that fight infections caused by bacteria; but Flu, COVID, and other common infections are caused by viruses. Taking antibiotics when you actually have a viral infection does more harm than good. If you take an antibiotic when you have a viral infection, the antibiotic attacks bacteria in your body- bacteria that are either beneficial or at least not causing disease. This misdirected treatment can then promote antibiotic-resistan t properties in harmless bacteria that can be shared with other bacteria or create an opportunity for potentially harmful bacteria to replace harmless ones. This can result in untoward effects of gastrointestinal issues (diarrhea, bloating, discomfort), or worsening of symptoms due to overgrowth of harmful bacteria (pneumonia). We understand your symptoms may transform and change. Therefor, if there is no improvement in current symptoms at all in 3-5 days, you can consider antibiotic therapy but we will leave this decision to you. Consider this if you continue to have fevers >100.4F or have no improvement in symptoms at all. Flonase 2 puffs per nostril once daily (this will relieve postnasal drip, runny nose, and a cough associated with that) (if not allergic). We can also offer ipratroprium nasal solution to help with these symptoms if flonase does not help. Taking antibiotics for a viral infection or allergies is not recommended. Antibiotics are medications that fight infections caused by bacteria; but Flu, COVID, and other common infections are caused by viruses. Taking antibiotics when you actually have a viral infection does more harm than good. If you take an antibiotic when you have a viral infection, the antibiotic attacks bacteria in your body- bacteria that are either beneficial or at least not causing disease. This misdirected treatment can then promote antibiotic-resistan t properties in harmless bacteria that can be shared with other bacteria or create an opportunity for potentially harmful bacteria to replace harmless ones. This can result in untoward effects of gastrointestinal issues (diarrhea, bloating, discomfort), or worsening of symptoms due to overgrowth of harmful bacteria (pneumonia). We understand your symptoms may transform and change. Therefor, if there is no improvement in current symptoms at all in 7-10 days, you can consider antibiotic therapy but we will leave this decision to you. Consider this if you continue to have fevers >100.4F or have no improvement in symptoms at all. Over the counter cepachol or chloraseptic for sore throat (if not allergic). Ibuprofen 400-800mg every 8 hours for pain, inflammation, aches (if not allergic). Benzonatate every 8 hours as needed if cough present. We can send this if requested although over the counter cough medications will also help similarly. Will can offer a short course of steroids to help relieve congestion, drainage, and inflammatory symptoms if we feel you meet the indication and do not have an overt bacterial infection. Remember that if you are having sneezing, runny nose, watery eyes, headache, nasal congestion, you may have an allergic component and zyrtec, xyzal, claritin, or milan may greatly benefit you. Recommend follow up in 1 week. Female patients only note: Some antibiotics and other medications can reduce control effectiveness. Check with your pharmacist and consider using extra protection to prevent . If there's any chance of , take a test first, as some medications may cause harm. All medications can affect .PATIENT EDUCATION: ACUTE SINUSITIS Acute sinusitis is inflammation of the nose and sinuses, often after a cold. It causes thick mucus, facial pain or pressure, and a stuffy nose. Most cases improve in 1-2 weeks, but some mild symptoms may last longer. Antibiotics may be needed for bacterial infections. At Home Care: Use saline nasal washes to clear mucus. You can buy these or make your own (1 tsp salt + 1 tsp baking soda in 2 cups boiled/cooled water). Try a decongestant spray like oxymetazoline (Afrin) but use for no more than 3 days. Take OTC pain meds (acetaminophen, ibuprofen, naproxen) as needed. If prescribed antibiotics, take the full course. Avoid taking multiple meds with acetaminophen at once. Use steroid nasal sprays if advised. Breathe warm, moist air; use humidifiers or steam but avoid cold, dry air. When to Call Your Doctor: New or worsening swelling, redness, or pain in face or eyes. Changes in vision or double vision. High fever, severe headache with stiff neck. Mental changes like confusion or drowsiness. If symptoms do not improve as expected. 12/25/2024 Other Follow the treatment plan as indicated by the provider. Take any medications as prescribed. If you have any questions about your prescription, ask the pharmacist. This treatment plan is based on the information you have provided to us today. Incomplete disclosure of your medical history, past treatments, or current medications may affect the effectiveness of this treatment. Call 911 anytime you think you may [...] education were provided based on your submission. Noncompliance with labs or recommendations may result in adverse outcomes. If symptoms persist or worsen, you should seek in-person care or call 911 immediately for further evaluation. Plan Of Treatment No Information Insurance Providers Payer Name Payer Address Payer Phone Subscriber Number Group Number Insured Name Patient Relationship to Insured Coverage Start Date Coverage End Date [facility] Self Pay [address] [place] [address] [phone] Román Ruggiero Self - patient is the insured
--- OUTSIDE RECORDS SUMMARY | 2025-01-04 09:16 | XMS_ITS | Patient Health Record ---
Author Organization [facility] Address [address] [place] [address] Care Team Providers Care Pad Assembler Name Role Phone Luis (RETIRED) Robert CARROLL Primary Care Provide Paul Doty Jr Unavailable Allergies Allergen (clinical drug ingredient) Drug/Non Drug Allergy documented on EMR Reaction Allergy Type Onset Date Status ciprofloxacin Cipro Unknown Drug Allergy Act carter red shelll fish (uncoded) Unknown Allergy Active Results Component Value Reference Range Notes Pathology Reviewed date:02/04/2024 09:12:40 AM Interpretation: Performing Lab:[facility], [address] [place] [id number] Notes/Report: Reason For Referral No Information Medications Medication SIG (Take, Route, Frequency, Duration) Notes Start Date End Date Status Amoxicillin-Pot Clavulanate 875-125 MG Oral; Duration: 7 Active Social History Tobacco Use: Social [...] Problem Status W/U Status Risk Notes Problem Colon cancer screening (029950267) Colon cancer screening (Z12.11) Active confirmed Problem Abdominal bloating (724057462) Abdominal bloating (R14.0) Active confirmed Problem Hemorrhoids without complication (95793524) Hemorrhoids, unspecified hemorrhoid type (K64.9) Active confirmed Encounters Encounter Location Date Provider Diagnosis [facility] Outpatient [address] [place] [phone] 01/27/2024 Paul Jones Jr Colon cancer screening Z12.11 and Colon polyps K63.5 [facility] [address] [place] [phone] 01/11/2024 Paul Jones Jr [facility] [address] [address] 02/04/2024 Paul Jones Jr Assessments Encounter Date Diagnosis (ICD Code) Assessment Notes Treatment Notes Treatment Clinical Notes Section Notes 01/27/2024 Colon cancer screening (ICD-10 - Z12.11) 01/27/2024 Colon polyps (ICD-10 - K63.5) Plan Of Treatment Future Test Test Name Order Date COLONOSCOPY 12/10/2023 Insurance Providers Payer Name Payer Address Payer Phone Subscriber Number Group Number Insured Name Patient Relationship to Insured Coverage Start Date Coverage End Date [facility] [employer] [address] [place] [address] [id number] NATHALIE PHILLIPS Self - patient is the insured Medical (General) History Medical History History ICD Code Hyperlipidemia Gastroesophageal reflux disease, EGD 10/21 2, negative for H. pylori. Colonoscopy 11/01. Hyperplastic polyps x2 . Surgical History Surgery Date(Month/Year) dental implant surgery 2018
--- OUTSIDE RECORDS SUMMARY | 2025-01-04 09:16 | XMS_ITS | Clinical Summary ---
Author Organization [facility] Address [address] [place] [address] Care Team Providers Care C D Reactor Operator Name Role Phone Robert Smith MD Primary Care Provider [phone] Social History Tobacco Use Types Packs/Day Years Used Date Smoking Tobacco: Never Assessed Sex and Gender Information Value Date Recorded Sex Assigned at Not on file Legal Sex Male 2:56 AM EST Gender Identity Not on file Sexual Orientation Not on file Plan of Treatment Health Maintenance Due Date Last Done Comments Colorectal Cancer Screening: Colonoscopy 1960 DTaP,Tdap,and Td Vaccines (1 - Tdap) 1980 Pneumococcal Vaccine: 50+ Ye ars (1 of 1 - PCV) 10/21/2011 Zoster Vaccines (1 of 2) 10/21/2011 Cholesterol Screening (Lipid Panel) 04/22/2023 HIV Screening 04/22/2023 Hepatitis C Screening [...] age to complete this topic Care Teams C D Reactor Operator Relationship Specialty Start Date End Date Robert Smith MD [address] [place] [address] Dr Laverne [place] PCP - General 05/07/22
== END ==
LOC: HO.CARD 08:42
PROVIDERS: PCP Internal Medicine; Visit Provider Student in an Organized Health Care Education/Training Program
DX: R06.02 Shortness of breath (principal)
CPT/HCPCS: 93306

== ENCOUNTER → 2025-01-04 08:47 | Outpatient (BNV) | payer BC, SELFPAY | PROVIDERS: PCP Internal Medicine; Visit Provider Internal Medicine Cardiovascular Disease | DX: I51.89 Other ill-defined heart diseases (principal); I77.810 Thoracic aortic ectasia | CPT/HCPCS: 93306 ==

== ENCOUNTER 2025-02-10 11:00 | Outpatient (AMB) | payer BC, SELFPAY ==
--- OUTSIDE RECORDS SUMMARY | 2015-08-12 23:00 | XMS_ITS | Encounter Summary ---
Author Organization [facility] Address [address] [place] [address] Phone Care Team Providers Care Manufacturing Group Leader Name Role Phone Robert Smith MD Primary Care Provider Reason for Visit * MRI/CAT Scan - Closed Specialty Diagnoses / Procedures Referred By George t Referred To Contact Radiology Procedures CT Head Outside With Interpretation or Consult Luis A Muhammad DMD, MD [address] [place] [address] [place] [address] Phone: tel: fax: mailto:[email or web address] Referral ID Status Reason Start Date Expiration Date Visits Re quested Visits Authorized [id number] Closed 10/09/2015 10/08/2016 1 1 Encounter Details Date Type Department Care Team ([facility] st Contact Info) Description 08/13/2015 Hospital Encounter [facility] [address] [place] [address] Luis A Muhammad DMD, MD [address] [place] [address] [place] [address] [email or web address] Social History Tobacco Use Types Packs/Day Years Used Date Smoking Tobacco: Every Day Cigarettes 0.3 33.8 Started: 04/08/1991 Smokeless Tobacco: Never Alcohol Use Standard Drinks/Week Comments No 0 (1 standard drink = 0.6 oz pur e alcohol) one to in a months time Education Answer Date Recorded Are you interested in more education? Not on kiara e 07/18/2022 Are you concerned about learning? Not on file 07/18/2022 No 07/18/2022 No 07/18/2022 Digital Access Answer Date Recorded No 08/18/2022 No 08/18/2022 No 08/18/2022 Reliable internet access at home? Not on file 08/18/2022 Device with a working camera? Not on file Sex and Gender Information Value Date Recorded Sex Assigned at Male 03/30/2017 9:36 AM EST Legal Sex Male 12:08 PM EST Gender Identity Male 05/18/2017 4:37 PM EST Sexual Orientation Not on file documented as of this encounter Plan of Treatment Not on file documented as of this encounter Procedures Procedure Name Priority Date/Time Associated Diagnosis Comments CT HEAD OUTSIDE WITH INTERPRETATION OR CONSULT Routine 08/13/2015 12:00 AM EDT documented in this encounter Results * CT Head Outside With Interpretation or Consult (08/13/2015 12:00 AM EDT) 11/02/2015 11:0 8 AM EDT Narrative [facility] - 11/02/2015 11:16 AM EDT TECHNIQUE: Outside images of the CT HEAD This outside examination can not be read because: The imaging is absent or inadequate. Procedure Note Java Developer Architect, Dictation - 11/02/2015 TECHNIQUE: Outside images of the CT HEAD This outside examination can not be read because: The imaging is absent or inadequate. us Luis A Muhammad DMD, MD IMG OUTSIDE IMAGING W/ INTERPRETATION Final Result [facility] [address] [place] [address] documented in this encounter Visit Diagnoses Not on filedocumented in this encounter Care Teams Manufacturing Group Leader Relationship Specialty Start Date End Date Robert Smith MD [address] [place] [address] [place] [address] PCP - General Internal Medicine 04/30/15 documented as of this encounter Additional Source Comments The information contained in this document represents components of the legal health record. It is not the complete legal health record.[facility]
--- OUTSIDE RECORDS SUMMARY | 2015-08-12 23:15 | XMS_ITS | Encounter Summary ---
Author Organization [facility] Address [address] [place] [address] Phone Care Team Providers Care Surgical Device Sales Representative Name Role Phone Robert Smith MD Primary Care Provider Reason for Visit * MRI/CAT Scan - Closed Specialty Diagnoses / Procedures Referred By George t Referred To Contact Radiology Procedures CT Head Outside With Interpretation or Consult Luis A Muhammad DMD, MD [address] [place] [address] Phone: tel: fax: mailto:[email or web address] Referral ID Status Reason Start Date Expiration Date Visits Re quested Visits Authorized [id number] Closed 10/09/2015 10/08/2016 1 1 Encounter Details Date Type Department Care Team ([facility] st Contact Info) Description 08/13/2015 12:15 AM EDT Hospital Encounter [facility] [address] [place] [address] Luis A Muhammad DMD, MD [address] [place] [phone] [email or web address] Social History Tobacco Use Types Packs/Day Years [...] OUTSIDE WITH INTERPRETATION OR CONSULT Routine 08/13/2015 12:15 AM EDT documented in this encounter Results * CT Head Outside With Interpretation or Consult (08/13/2015 12:15 AM EDT) 11/01/2015 3:55 PM EDT Narrative [facility] - 11/02/2015 11:16 AM EDT TECHNIQUE: Outside images of the CT HEAD This outside examination can not be read because: The imaging is absent or inadequate. Procedure Note Paper Machine Back Tender, Dictation - 11/02/2015 TECHNIQUE: Outside images of the CT HEAD This outside examination can not be read because: The imaging is absent or inadequate. us Luis A Muhammad DMD, MD IMG OUTSIDE IMAGING W/ INTERPRETATION Final Result [facility] [address] [facility] [place] [address] documented in this encounter Visit Diagnoses Not on filedocumented in this encounter Care Teams Surgical Device Sales Representative Relationship Specialty Start Date End Date Robert Smith MD [address] [place] [address] [place] [address] PCP - General Internal Medicine 04/30/15 documented as of this encounter Additional Source Comments The information contained in this document represents components of the legal health record. It is not the complete legal health record.[facility]
--- OUTSIDE RECORDS SUMMARY | 2015-08-12 23:30 | XMS_ITS | Encounter Summary ---
Author Organization [facility] Address [address] [place] [address] Phone Care Team Providers Care Wholesale Manager Name Role Phone Robert Smith MD Primary Care Provider Reason for Visit * MRI/CAT Scan - Closed Specialty Diagnoses / Procedures Referred By George t Referred To Contact Radiology Procedures CT Head Outside With Interpretation or Consult Hazel Maravilla DDS [address] [place] [address] Phone: tel: fax: mailto:[email or web address] Referral ID Status Reason Start Date Expiration Date Visits Re quested Visits Authorized [id number] Closed 10/09/2015 10/08/2016 1 1 Encounter Details Date Type Department Care Team ([facility] Contact Info) Description 08/13/2015 12:30 AM EDT Hospital Encounter [facility] [address] [place] [address] Hazel Maravilla DDS [address] [place] [phone] [email or web address] Social History Tobacco Use Types Packs/Day Years [...] OUTSIDE WITH INTERPRETATION OR CONSULT Routine 08/13/2015 12:30 AM EDT documented in this encounter Results * CT Head Outside With Interpretation or Consult (08/13/2015 12:30 AM EDT) 11/01/2015 3:56 PM EDT Narrative [facility] - 11/02/2015 11:07 AM EDT TECHNIQUE: Outside images of the CT HEAD This outside examination can not be read because: The imaging is absent or inadequate. Procedure Note Scaler Packer, Dictation - 11/02/2015 TECHNIQUE: Outside images of the CT HEAD This outside examination can not be read because: The imaging is absent or inadequate. us Hazel Maravilla DDS IMG OUTSIDE IMAGING W/ INTER PRETATION Final Result [facility] [address] [facility] [place] [address] documented in this encounter Visit Diagnoses Not on filedocumented in this encounter Care Teams Wholesale Manager Relationship Specialty Start Date End Date Robert Smith MD [address] [place] [address] [place] [address] PCP - General Internal Medicine 04/30/15 documented as of this encounter Additional Source Comments The information contained in this document represents components of the legal health record. It is not the complete legal health record.[facility]
--- OUTSIDE RECORDS SUMMARY | 2015-08-12 23:45 | XMS_ITS | Encounter Summary ---
Author Organization [facility] Address [address] [place] [address] Phone Care Team Providers Care Jewel Sorter Name Role Phone Robert Smith MD Primary Care Provider Reason for Visit * MRI/CAT Scan - Closed Specialty Diagnoses / Procedures Referred By George t Referred To Contact Radiology Procedures CT Face Outside With Interpretation Or Consult Hazel Maravilla DDS [address] [place] [address] Phone: tel: fax: mailto:[email or web address] Referral ID Status Reason Start Date Expiration Date Visits Re quested Visits Authorized [id number] Closed 10/09/2015 10/08/2016 1 1 Encounter Details Date Type Department Care Team ([facility] Contact Info) Description 08/13/2015 12:45 AM EDT Hospital Encounter [facility] [address] [place] [address] Hazel Maravilla DDS [address] [place] [address] [email or web address] Social History Tobacco Use Types Packs/Day Years [...] Name Priority Date/Time Associated Diagnosis Comments CT FACE OUTSIDE WITH INTERPRETATION OR CONSULT Routine 08/13/2015 12:45 AM EDT documented in this encounter Results * CT Face Outside With Interpretation Or Consult (08/13/2015 12:45 AM EDT) 10/09/2015 4:18 PM EDT Impressions [facility] - 10/10/2015 10:58 AM EDT IMPRESSION: 1. Postsurgical changes of the left mandible as noted above without evidence of abscess/active infection or sialolithiasis. 2. Otherwise normal enhanced CT of the neck. No mass lesion, lymphadenopathy, fluid collection, or abnormal enhancement identified. Narrative [facility] - 10/10/2015 10:58 AM EDT Reviewed by Dr. Iram Whitman with Dr. Jossue Castellano (Attending Radiologist) Interpretation of outside CT scan HISTORY: 54yo male with intermittent and recurrent pain and swelling under the tongue and below the mandible on the left side, s/p exploratory surgical procedure as well as endodontic therapy on the mandibular left first molar tooth and subsequent extraction of this tooth COMPARISON: None. TECHNIQUE: Neck CT WITH intravenous contrast. FINDINGS: No discrete mass lesion or abnormal fluid collection is identified. No abnormal enhancement is present. The pharyngeal mucosal space has a normal appearance. Structures of the hypopharynx and larynx are symmetric and appear normal. The parotid, submandibular, and sublingual glands and spaces have a normal appearance. No sialolith identified and no abnormal dilation of the bilateral parotid or Cascade's ducts. No subcutaneous fat stranding or other secondary signs to suggest underlying inflammatory or infectious process. The major vessels of the neck enhance normally. Inside Account Executive, parapharyngeal, and retropharyngeal spaces appear normal. The thyroid gland has a normal appearance. Postsurgical changes noted from prior exploratory surgery of left mandible with extraction of multiple teeth. Evidence of extensive prior endodontic therapy. Absence of teeth #1, #2, #15, #17, #19, #20, and #32 noted. No cervical lymphadenopathy is identified. The paranasal sinuses, mastoid air cells and airways are clear. The visualized segments of the orbits, globes, and intracranial compartment are unremarkable. The vertebrae and paraspinal soft tissues are unremarkable. The visualized lung apices are clear. Procedure Note Jossue Castellano MD - 10/10/[address] Iram Whitman with Dr. Jossue Castellano (AttendingRadiologist) Interpretation of outside CT scan HISTORY: 54yo male with intermittent and recurrent pain and swelling underthe tongue and below the mandible on the left side, s/p exploratory surgical procedure as well as endodontic therapy on the mandibular left first molartooth and subsequent extraction of this tooth COMPARISON: None. TECHNIQUE: Neck CT WITH intravenous contrast. FINDINGS: No discrete mass lesion or abnormal fluid collection is identified. Noabnormal enhancement is present. The pharyngeal mucosal space has a normal appearance. Structures of the hypopharynx and larynx are symmetric and appear normal.The parotid, submandibular, and sublingual glands and spaces have a normal appearance. No sialolith identified and no abnormal dilation of thebilateral parotid or Rosana's ducts. No subcutaneous fat stranding or othersecondary signs to suggest underlying inflammatory or infectious process. The major vessels of the neck enhance normally. Inside Account Executive, parapharyngeal, and retropharyngeal spaces appear normal.The thyroid gland has a normal appearance. Postsurgical changes noted from prior exploratory surgery of left mandiblewith extraction of multiple teeth. Evidence of extensive prior endodontictherapy. Absence of teeth #1, #2, #15, #17, #19, #20, and #32 noted. No cervical lymphadenopathy is identified. The paranasal sinuses, mastoid air cells and airways are clear. Thevisualized segments of the orbits, globes, and intracranial compartment areunremarkable. The vertebrae and paraspinal soft tissues are unremarkable. The visualized lung apices are clear. IMPRESSION: IMPRESSION: 1. Postsurgical changes of the left mandible as noted above withoutevidence of abscess/active infection or sialolithiasis. 2. Otherwise normal enhanced CT of the neck. No mass lesion,lymphadenopathy, fluid collection, or abnormal enhancement identified. us Hazel Maravilla DDS IMG OUTSIDE IMAGING W/ INTER PRETATION Final Result [facility] [address] [place] [address] documented in this encounter Visit Diagnoses Not on filedocumented in this encounter Care Teams Jewel Sorter Relationship Specialty Start Date End Date Robert Smith MD [address] [place] [address] [place] [address] PCP - General Internal Medicine 04/30/15 documented as of this encounter Additional Source Comments The information contained in this document represents components of the legal health record. It is not the complete legal health record.[facility]
--- OUTSIDE RECORDS SUMMARY | 2023-08-21 07:30 | XMS_ITS ---
Author Organization [facility] Address [address] [place] [address] Care Team Providers Care Automotive Painter Helper Name Role Phone [facility], [facility] Unavailable [phone] REASON FOR VISIT f/up skin infection Encounters Encounter Location Date Provider Diagnosis [facility] [address] [place] [address] 08/21/2023 [facility] Plan Of Treatment No Information Progress Notes * Román RUGGIERODOB:1960 (64 yo M)Acc No.[id number]:08/21/2023 Progress Notes Patient: Román RASHID Provider: Sharmila AGUAYO [place] :1960 A ge:62 Y S ex:Male Date:08/21/2023 Phone: Address:[address], [place] Subjective: * Chief Complaints: * 1 . F/up skin infection. * Medical History: Objective: * Vitals: Assessment: Plan: * Treatment: * Billing Information: * Visit Code: * Procedure Codes: * Electronic signature of [facility] on 02/10/2025 at 11:49 AM EST Sign off status: Pending * Provider: Sharmila AGUAYO [place] Date: 0 08/21/2023 Generated for Regla enamorado/Carmel/eTkostasmitting on: 04/12/2024 11:49 AM EST
--- OUTSIDE RECORDS SUMMARY | 2023-11-28 05:45 | XMS_ITS ---
Author Organization [facility] Address [address] [place] [address] Care Team Providers Care Escrow Processor Name Role Phone [facility] Unavailable [phone] Allergies No Known Allergies REASON FOR VISIT Prescription Refill, Patient requesting service from promotional campaign pmax_rx_[email or web address]_meds Medications Medication SIG (Take, Route, Frequency, Duration) Notes Start Date End Date Status Cephalexin 500 MG 1 capsule Orally francisco ry 6 hrs; Duration: 7 days 08/14/2023 Active Clindamycin HCl 300 MG Oral; Duration: 5 Days Active Ibuprofen 800 MG Oral; Duration: 5 Days Active Amoxicillin-Pot Clavulanate 875-125 MG Oral; Duration: 7 Days Activ e Chlorhexidine Gluconate 0.12 % Mouth/Throat; Duration: 15 Days Active Medrol 4 MG as directed Orally O nce a day; Duration: 6 days 05/10/2023 Active Cefpodoxime Proxetil 200 MG Oral; Duration: 10 Days Active Fluticasone Propionate 50 MCG/ACT SPRAY 1 SPRAY INTO EACH NOSTRIL TWO TIMES A DAY IF NEEDED Nasal; Duration: 30 Days Active Social History Tobacco Use: Social History Observation Description Date Details (start date - stop date) Current Smoker NA - NA Tobacco Use/Smoking Question Answer Notes Are you a current smoker Tobacco Control (Standard) Question Answer Notes Tobacco use: Current smoker Vital Signs Height 72 in 11/28/2023 Weight 225 lbs 11/28/2023 BMI 30.51 kg/m2 11/28/2023 Patient Reported Normal Bloo d PresurePatient Reported Normal Temperature Encounters Encounter Location Date Provider Diagnosis [facility] [address] [place] [address] 11/28/2023 [facility] Assessments Encounter Date Diagnosis (ICD Code) Assessment Notes Treatment Notes Treatment Clinical Notes Section Notes 11/28/2023 Other Follow the treatment plan as indicated by the provider. Take any medications as prescribed. If you have any questions about your prescription, ask the pharmacist. Call 911 anytime you think you may need emergency care. For example, call if:You have severe trouble breathing.You have a seizure.Call your doctor now or seek immediate medical care if:You have trouble breathing.You have a fever with a stiff neck or a severe headache.You have pain or pressure in your chest or belly.You have a fever or cough that returns after getting better.You feel very sleepy, dizzy, or confused.You are not urinating.You have severe muscle pain.You have severe weakness, or you are unsteady.You have medical conditions that are getting worse.Watch closely for changes in your health, and be sure to contact your doctor if:You do not get better as expected.You are having a problem with your medicine. You participated in a [employer] Rx request, considered an asynchronous visit where you provide your symptoms and medical history, and a treatment plan is formulated based on your submission. A treatment plan and patient education were provided based on your submission. If symptoms persist or worsen, you should seek in-person care or call 911 immediately for further evaluation. Plan Of Treatment Treatment Notes Assessment Notes Other Follow the treatment plan as indicated by the provider. Take any medications as prescribed. If you have any questions about your prescription, ask the pharmacist. Call 911 anytime you think you may need emergency care. For example, call if:You have severe trouble breathing.You have a seizure.Call your doctor now or seek immediate medical care if:You have trouble breathing.You have a fever with a stiff neck or a severe headache.You have pain or pressure in your chest or belly.You have a fever or cough that returns after getting better.You feel very sleepy, dizzy, or confused.You are not urinating.You have severe muscle pain.You have severe weakness, or you are unsteady.You have medical conditions that are getting worse.Watch closely for changes in your health, and be sure to contact your doctor if:You do not get better as expected.You are having a problem with your medicine. Next Appt Details Follow Up: PCP, Reason: Progress Notes * Hermilo RUGGIERO:1960 (64 yo M)Acc No.[id number]:11/28/2023 Patient: Román RASHID Provider: Sharmila AGUAYO HELIX :1960 A ge:63 Y S ex:Male Date:11/28/2023 Phone: Address:[address], [id number] Subjective: * Chief Complaints: * 1 . Prescription Refill. 2. Patient requesting service from promotional campaign pmax_rx_ftrx_top_meds. * HPI: T [facility] Complaint History: Reason for visit: Medication RequestRequested: Keflex, 500mg, 10 days Reason: Skin infection How Lon minths Side Effects: Prescriber: Dr Gonzalez. Captain/Check Airman Per pt: I cant loacte my Keeflex presribed by my dermotologist. Leaving for vacation tommorow. * ROS: A ll Other Systems: Review of Systems (ROS) S ee HPI for details. * Medical History: D enies. * Surgical History: D enies Past Surgical History. * Hospitalization/Major Diagno stic Procedure: D enies Past Hospitalization. * Family History: denies. * Social History: T obacco Use: T obacco Use/Smoking A re you a c urrent smoker Tobacco Control (Standard) T obacco use: C urrent smoker D rugs/Alcohol: D o you drink alcohol?: No. * Medications: T aking Amoxicillin-Pot Clavulanate 875-125 MG Tablet Oral , Taking Chlorhexidine Gluconate 0.12 % Solution Mouth/Throat , Taking Cefpodoxime Proxetil 200 MG Tablet Oral , Taking Fluticasone Propionate 50 MCG/ACT Suspension SPRAY 1 SPRAY INTO EACH NOSTRIL TWO TIMES A DAY IF NEEDED Nasal , Taking Medrol 4 MG Tablet Therapy Pack as directed Orally Once a day , Taking Cephalexin 500 MG Capsule 1 capsule Orally every 6 hrs , Taking Clindamycin HCl 300 MG Capsule Oral , Taking Ibuprofen 800 MG Tablet Oral * Allergies: N .K.D.A. Objective: * Vitals: H t: 72 in, Wt:225lbs, BMI:30.51Index. Patient Reported Normal Blood Presure Patient Reported Normal Temperature. * Physical Examination: A synchronous visit, unable to assess. Assessment: Plan: * Treatment: * Follow Up: P CP * Billing Information: * Visit Code: * Procedure Codes: * Electronic signature of [facility] on 02/10/2025 at 11:51 AM EST Sign off status: Pending * Provider: Sharmila LAWRENCE Date: 0 11/28/2023 Generated for Regla enamorado/Carmel/Debbie on: 1 04/12/2024 11:51 AM EST History and Physical Notes * Physical Examination Category Sub-Category Detail Notes Section Note s Asynchronous vi sit, unable to assess
--- OUTSIDE RECORDS SUMMARY | 2024-01-12 05:00 | XMS_ITS ---
Author Organization [facility] Address [address] [place] [address] Care Team Providers Care Post Hole Digging Machine Operator Name Role Phone Luis (RETIRED) Robert CARROLL Primary Care Provide r Paul Doe Jr REASON FOR VISIT screening Encounters Encounter Location Date Provider Diagnosis [facility] [address] [place], [place] [phone] 01/12/2024 Paul Jones Jr Plan Of Treatment No Information Progress Notes * NATHALIE PHILLIPSDOB:1960 (64 yo M)Acc No.[id number]:01/12/2024 COLON WITH MAC Patient: NATHALIE RASHID Provider: Teo Jones MD :1960 A ge:63 Y S ex:Male Date:01/12/2024 Address:[address] [place], [place] [phone] Pcp:Robert Smith (RETIRED )MD Subjective: * Chief Complaints: * S creening * The named appointment provid er may or may not be the originator of this progress note, and it is not deemed complete until electronically signed by the appointment provider. Sign off status: Pending * Provider: Teo Jones MD Date: Generated for Regla enamorado/Carmel/eTransmitting on: 04/12/2024 11:51 AM EST
--- OUTSIDE RECORDS SUMMARY | 2024-01-27 08:50 | XMS_ITS ---
Author Organization [facility] Address [address] [place] [address] Care Team Providers Care Electric Sign Wirer Name Role Phone Luis (RETIRED) Robert CARROLL Primary Care Provide r Paul Doe Jr REASON FOR VISIT screening Encounters Encounter Location Date Provider Diagnosis [facility] [address] [place] [phone] 01/27/2024 Paul Jones Jr Colon cancer screening Z12.11 and Colon polyps K63.5 Assessments Encounter Date Diagnosis (ICD Code) Assessment Notes Treatment Notes Treatment Clinical Notes Section Notes 01/27/2024 Colon cancer screening (ICD-10 - Z12.11) 01/27/2024 Colon polyps (ICD-10 - K63.5) Plan Of Treatment No Information Progress Notes * NATHALIE PHILLIPSDOB:1960 (64 yo M)Acc No.[id number]:01/27/2024 COLON WITH MAC Patient: NATHALIE RASHID Provider: Teo Jones MD :1960 A ge:63 Y S ex:Male Date:01/27/2024 Address:[address] [place] [address] [facility] Pcp:Robert Smith (RETIRED )MD Subjective: * Chief Complaints: * S creening Assessment: * Assessment: 1. C olon cancer screening - Z12.11 (Primary) 2 . C olon polyps - K63.5? Plan: * Procedure Codes: 4 5385 LESION REMOVAL [id number] COLONOSCOPY AND BIOPSY, Modifiers: 59 0529F INTRVL 3+YRS PTS CLNSCP DOCD Billing Information: * Procedure Codes: 84110 LESION REMOVAL COLONOSCOPY. 45283 COLONOSCOPY AND BIOPSY. Modifiers: 59 0529F INTRVL 3+YRS PTS CLNSCP DOCD. * The named appointment provid er may or may not be the originator of this progress note, and it is not deemed complete until electronically signed by the appointment provider. Sign off status: Pending * Provider: Teo Jones MD Date: 03/28/2023 Generated for Regla enamorado/Carmel/Delilahsmitting on: 04/12/2024 11:51 AM EST
--- NOTE | 2025-02-10 08:08 | MHC.OFFVIS ---
Intake Visit Reasons: Current Smoker Allergies shellfish derived Allergy (Severe, Verified 11/15/24 15:48) ANAPHYLAXIS ciprofloxacin (CIPROFLOXACIN) Allergy (Intermediate, Verified 11/15/24 15:48) FLU LIKE SYMPTOMS HPI HPI Current Smoker: Details: Initial visit for this 64yo smoker with a 40PYH. Patient started smoking at age 21 for 43 years at 1ppd. . Denies marijuana use. Denies second hand smoke exposure. Denies exposure to chemicals or substances like asbestos. . Denies known family history of lung cancer. Denies personal history of cancers. Denies chest CT in last year. . Denies recent travel outside the [place]. Denies recent respiratory illness or recent hospitalization for respiratory issues. Admits testing positive for COVID. Admits receiving COVID Vaccine. . Denies fever, chills, new/worsening cough, hemoptysis, hoarseness or dysphagia. Denies significant chest pain, significant dyspnea or unintentional weight loss. Patient Lung Cancer Screening Questionnaire reviewed with patient by provider. . Shared Decision Making Completed. Patient meets criteria. Discussed in detail with patient, the risk vs benefit of LDCT screening. Patient consents to proceed with scan. Discussed smoking cessation. He is considering hypnosis. [facility] Medical History (Updated 02/10/25 @ 11:10 by Annamarie Sood PA-C) Tubular adenoma of colon Nicotine dependence, cigarettes, uncomplicated Shortness of breath Frozen shoulder syndrome Chronic infection GERD (gastroesophageal reflux disease) Hyperlipidemia Surgical History (Updated 02/10/25 @ 11:15 by Annamarie Sood PA-C) History of colonoscopy History of dental surgery History of esophagogastroduodenoscopy (EGD) History of mandibular surgery Family History Mother Cancer of unknown origin Father Cancer of unknown origin Social History Household Members: Spouse Housing: House Alcohol intake: current Alcohol intake frequency: does not drink Patient Tobacco Use Status: Current everyday Tobacco user Tobacco use type: Cigarette Cigarette Packs Per Day: 1 Cigarettes Per Day: 20.0 e-Cigarette/Vaping Use: Never Used service: No Current occupational status: employed Cognitive needs: No Hearing needs: No Vision needs: Yes (rx glasses) Assessment & Plan Assessment & Plan (1) Nicotine dependence, cigarettes, uncomplicated: Comment: (onset 21yo, 1ppd x 43yrs, 40pyh) Code(s): F17.210 - Nicotine dependence, cigarettes, uncomplicated Category: Medical Plan: - SDM visit completed today in office. - Patient meets criteria for LDCT for lung cancer screening purposes and is asymptomatic. - Smoking cessation counseling offered. Patients can always call [phone]. - Will arrange for a LDCT scan of the chest for screening purposes at [facility]. - Risks, benefits, and alternatives were discussed in detail and the patient agrees to proceed. - Risks discussed include but are not limited to: radiation exposure, anxiety during testing and while awaiting results, false negatives, false positives and possibility of additional intervention such as further imaging or surgical procedures for benign disease. - Benefits are obviously detection of lung cancer at an early stage which can lead to improved outcomes. - Discussed the importance of screening program compliance with adherence to yearly LDCT scan as scheduled - or sooner interval scans for personalized screening regimen. - Discussed follow up plan. Our office will send a letter discussing results and if needed set up phone call and office visit based on CT findings. - Patient educated on results categorization and the management decisions for suspicious findings potentially found on the screening LDCT scan. Any patient with a Lung RADS score of 3 or 4 will be reviewed by a multidisciplinary team at [facility] to form a plan of action in regards to scan findings. - If further work up is warranted for a suspicious lung finding this will be followed by the Lung Cancer Screening program in conjunction with the Thoracic Surgery Department at [facility]. - A copy of the office note and LDCT will be sent to the patient's PCP - as well as documentation on any associated further plans of care. - Incidental findings on LDCT are the PCP's responsibility. These findings are indicated with an S finding on the LDCT Assessment. A note discussing the findings will be sent to the PCP who is then responsible for further management. - All questions answered.? Coding Level of Care Code Lung Cancer Screening G0296 Diagnoses Nicotine dependence, cigarettes, uncomplicated F17.210
--- OUTSIDE RECORDS SUMMARY | 2025-02-10 11:52 | XMS_ITS | Clinical Summary ---
Author Organization [facility] Address [address] [place] [address] Care Team Providers Care Marina Sales And Service Supervisor Name Role Phone Ash Smith MD Primary Care Provider [phone] Social History Tobacco Use Types Packs/Day Years [...] of 2) 10/21/2011 COVID-19 Vaccine ( - 2024-2 6 season) 2024 Influenza Vaccine (#1) 2024 HPV [...] ANTHEM - OUT OF STATE Care Teams Marina Sales And Service Supervisor Relationship Specialty Start Date End Date Ash Smith MD [address] [place] [address] PCP - General 08/27/17
--- OUTSIDE RECORDS SUMMARY | 2025-02-10 11:52 | XMS_ITS | Patient Health Record ---
Author Organization [facility] Address [address] [place] [address] Care Team Providers Care Lawn Mower Mechanic Name Role Phone Luis (RETIRED) Robert CARROLL Primary Care Provide Paul Doty Jr Unavailable Allergies Allergen (clinical drug ingredient) Drug/Non Drug Allergy documented on EMR Reaction Allergy Type Onset Date Status red shelll fish (uncoded) Unknown Allergy Active ciprofloxacin Cipro Unknown Drug Allergy Act carter Reason For Referral No Information Medications Medication SIG (Take, Route, Frequency, Duration) Notes Start Date End Date Status Amoxicillin-Pot Clavulanate 875-125 MG Tablet Oral; Duration: 7 Activ e Social History Tobacco Use: Social History Observation Description Date Details (start date - stop date) Current Smoker NA - NA Social History Drugs/Alcohol: Social Info Question Answer Notes Alcohol Screen Did you have a drink containing alcohol in the past year? Yes How often did you have a drink containing alcohol in the past year? Never (0 point) How many drinks did you have on a typical day when you were drinking in the past year? 1 or 2 drinks (0 point) How often did you have 6 or more drinks on one occasion in the past year? Never (0 point) Points 0 Interpretation Negative Tobacco Use: Social Info Question Answer Notes Tobacco Use/Smoking Patient is a current smoker How often do you smoke cigarettes? every day How many cigarettes a day do you smoke? 11-20 Additional Details Category Social Info Options Details Miscellaneous: Marital status: Occupation: director Section Notes: very occasional drink Problems Problem Type SNOMED Code ICD Code Onset Dates Problem Status W/U Status Risk Notes Problem Colon cancer screening (058700150) Colon cancer screening (Z12.11) Active confirmed Problem Abdominal bloating (339754780) Abdominal bloating (R14.0) Active confirmed Problem Hemorrhoids without complication (12470567) Hemorrhoids, unspecified hemorrhoid type (K64.9) Active confirmed Plan Of Treatment Future Test Test Name Order Date COLONOSCOPY 12/10/2023 Insurance Providers Payer Name Payer Address Payer Phone Subscriber Number Group Number Insured Name Patient Relationship to Insured Coverage Start Date Coverage End Date [facility] [employer] CLAIM[employer] [address] [place] [address] [id number] NATHALIE PHILLIPS Self - patient is the insured Medical (General) History Medical History History ICD Code Hyperlipidemia Gastroesophageal reflux disease, EGD 10/21 2, negative for H. pylori. Colonoscopy 11/01. Hyperplastic polyps x2 . Surgical History Surgery Date(Month/Year) dental implant surgery 2018
--- OUTSIDE RECORDS SUMMARY | 2025-02-10 11:52 | XMS_ITS | Encounter Summary ---
Author Organization [facility] Address [address] [place] [address] Phone Care Team Providers Care Clinical Faculty Name Role Phone Robert Smith MD Primary Care Provider Hazel Maravilla DDS Unavailable [phone] Mason Lester MD Unavailable [phone] Reason for Referral * MRI/CAT Scan - Closed Specialty Diagnoses / Procedures Referred By George killian Referred To Contact Radiology Diagnoses Sialoadenitis Inflammatory disorder of jaw Procedures CT Neck CT Face Hazel Maravilla DDS Phone: tel: fax: [email or web address] Referral ID Status Reason Start Date Expiration Date Visits Re quested Visits Authorized [id number] Closed 05/06/2018 07/05/2018 1 1 Encounter Details Date Type Department Care Team (Latest Contact Info) Description 05/09/2018 Ancillary Orders [facility] business office technology instructor [address] [place] [address], [address], [address] [place] [address] Hazel Maravilla DDS [address] [place], [place] [address] [place] [address] [email or web address] Sialoadenitis; Inflammatory disorder of jaw Social History [...] jaw documented in this encounter Care Teams Clinical Faculty Relationship Specialty Start Date End Date Robert Smith MD [address] [place] [address] [place] [address] PCP - General Internal Medicine 04/30/15 Hazel Maravilla DDS [address] [place] [address] [email or web address] 10/09/15 Mason Lester MD [address] [place] [address] [email or web address] Otolaryngology 05/06/18 documented as of this encounter Additional Source Comments The information contained in this document represents components of the legal health record. It is not the complete legal health record.[facility]
--- OUTSIDE RECORDS SUMMARY | 2025-02-10 11:52 | XMS_ITS | Clinical Summary ---
Author Organization [facility] [[email or web address]] Address [address] [place] [address] Care Team Providers Care Medical Record Transcriber Name Role Phone Robert Smith MD Primary Care Provider [phone] Social History Tobacco Use Types Packs/Day Years [...] Screening 04/22/2023 Depression Screening 03/23/2024 COVID-19 Vaccine (1 - 2024-2 6 season) 2024 Influenza Vaccine (#1) 2024 RSV [...] age to complete this topic Care Teams Medical Record Transcriber Relationship Specialty Start Date End Date Robert Smith MD [address] [place] [address] Dr [place] PCP - General 05/07/22
--- OUTSIDE RECORDS SUMMARY | 2025-02-10 11:52 | XMS_ITS | Encounter Summary ---
Author Organization [facility] Address [address] [facility] [address] [place] [address] Phone Care Team Providers Care Jail Manager Name Role Phone Robert Smith MD Primary Care Provider Hazel Maravilla DDS Unavailable Mason Lester MD Unavailable [phone] Encounter Details Date Type Department Care Team (Late st Contact Info) Description 06/24/2018 Prep for Surgery [facility] [address] [place] [address] Hazel Maravilla, DDS [address] [place] [address] [email or web address] Lesion of oral mucosa (Primary Dx) Social [...] Primary documented in this encounter Care Teams Jail Manager Relationship Specialty Start Date End Date Robert Smith MD [address] [place] [address] [place] [address] PCP - General Internal Medicine 04/30/15 Hazel Maravilla DDS [address] [place] [address] [email or web address] 10/09/15 Mason Lester MD [address] [place] [address] [email or web address] Otolaryngology 05/06/18 documented as of this encounter Additional Source Comments The information contained in this document represents components of the legal health record. It is not the complete legal health record.[facility]
--- OUTSIDE RECORDS SUMMARY | 2025-02-10 11:52 | XMS_ITS | Patient Health Record ---
Author Organization [facility] Address [address] [place] [address] Care Team Providers Care Office Specialist Name Role Phone FLORENTIN PORTER Unavailable [phone] Allergies No Known Allergies Reason For Referral [...] W/U Status Risk Notes Problem Recurrent sinusitis (603652156) Recurrent sinusitis (J32.9) Active confirmed Vital Signs Height 72 in 12/25/2024 Weight 225 lbs 12/25/2024 BMI 30.52 kg/m2 12/25/2024 Encounters Encounter Location Date Provider Diagnosis [facility] [address] [place] [address] 12/25/2024 FLORENTIN PORTER Recurrent sinusitis J32.9 Assessments [...] Insured Coverage Start Date Coverage End Date [facility] Self Pay [address] [place] [address] 0 Román Ruggiero Self - patient is the insured
--- OUTSIDE RECORDS SUMMARY | 2025-02-10 11:52 | XMS_ITS | Clinical Summary ---
Author Organization [facility] Address [address] [facility] [address] [place] [address] Phone Care Team Providers Care Stock Broker Name Role Phone Robert Smith MD Primary Care Provider Hazel Maravilla DDS Unavailable [phone] Mason Lester MD Unavailable [phone] Allergies Active Allergy Reactions Criticality Noted Date [...] topic Medical Devices Not on file Insurance [address] [place], [place] [id number] POS [facility] POS [facility] HMO POS [facility] HMO [address] [place], [place] [id number] [address] [place] [address] HMO POS Care Teams Stock Broker Relationship Specialty Start Date End Date Robert Smith MD [address] [place] [address] Dr LOVETT [place], [place] PCP - General Internal Medicine 04/30/15 Hazel Maravilla DDS [address] [place] [address] [email or web address] 10/09/15 Mason Lester MD [address] [place] [address] [email or web address] Otolaryngology 05/06/18 Additional Source Comments The information contained in this document represents components of the legal health record. It is not the complete legal health record.[facility]
== END 2025-02-10 16:05 | disposition home or self-care (01) ==
LOC: HO.HPS 11:00
PROVIDERS: PCP Internal Medicine; Visit Provider Physician Assistant Medical
DX: F17.210 Nicotine dependence, cigarettes, uncomplicated (principal)
CPT/HCPCS: G0296

== ENCOUNTER 2025-02-10 11:20 | Outpatient (REF) | payer BC, SELFPAY ==
--- NOTE | ~2025-02-10 | CT_ITS ---
EXAMINATION: CT LUNG SCREENING HISTORY: F17.210 - Nicotine dependence, cigarettes, uncomplicated TECHNIQUE: Low dose axial images were obtained from the sternal notch to upper abdomen without IV contrast per standard departmental protocol. Sagittal and coronal reformatted images were also obtained and reviewed. One or more of the following techniques was used for dose reduction: Automated exposure control, adjustment of the mA and/or kV according to patient size, use of iterative reconstruction technique. DLP: 87 mGy-cm COMPARISON: Comparison is made with the prior examination dated 11/08/2018. FINDINGS: Lung nodules: There is a 2 mm nodule in the azygoesophageal recess of the right lower lobe (series 11, image 95). No additional pulmonary nodules are identified. Emphysema: none Coronary Calcification: none Aortic Arch Calcification: none Potentially Significant Incidentals : none Additional Chest Findings: There is no pleural or pericardial effusion. No mediastinal or axillary lymphadenopathy is identified. Visualized upper abdomen: There is a 2.0 cm probable cyst in the left lobe of the liver. The visualized portions of the spleen and adrenals have an unremarkable unenhanced appearance. CT/CT lung screening IMPRESSION: No suspicious pulmonary nodules are identified. LUNG-RADS ASSESSMENT: Lung-RADS 2: Benign MANAGEMENT: Continue annual screening with LDCT in 12 months Category S: N/A Electronically signed by: Luis A Krishnan MD 02/10/2025 12:19 PM [facility]
== END 2025-02-10 11:21 | disposition home or self-care (01) ==
LOC: HO.CT 11:20
PROVIDERS: PCP Internal Medicine; Visit Provider Physician Assistant Medical
DX: Z12.2 Encounter for screening for malignant neoplasm of respiratory organs (principal); F17.210 Nicotine dependence, cigarettes, uncomplicated
CPT/HCPCS: 71271

== ENCOUNTER → 2025-02-10 11:21 | Outpatient (BNV) | payer BC, SELFPAY | PROVIDERS: PCP Internal Medicine; Visit Provider Radiology Diagnostic Radiology | DX: Z12.2 Encounter for screening for malignant neoplasm of respiratory organs (principal); Z87.891 Personal history of nicotine dependence | CPT/HCPCS: 71271 ==